=== PATIENT | female | born 1945 | race Caucasian/White ===

== ENCOUNTER → 2017-02-06 | Outpatient (CLI) | payer OTHER ==
[~2017-02-06] MED LIST: ASPEC81 PO; COLE1TAB5 PO; LPR100 PO; METH-589 PO; METO-596 PO; MULT-190 PO; OMEG10007 PO
[2017-02-06 14:08] LABS: THYROID STIMULATING HORMONE 0.788 uIu/ml (0.300-4.500)
== END | disposition home or self-care (01) ==
LOC: C.LAB1850 12:08
PROVIDERS: ATTEND Internal Medicine Endocrinology, Diabetes & Metabolism
DX: E05.90 Thyrotoxicosis, unspecified without thyrotoxic crisis or storm (principal)

== ENCOUNTER → 2017-05-08 | Outpatient (CLI) | payer OTHER ==
[2017-05-08 17:02] LABS: THYROID STIMULATING HORMONE 1.3 uIu/ml (0.300-4.500)
== END | disposition home or self-care (01) ==
LOC: C.LAB1850 15:27
PROVIDERS: ATTEND Internal Medicine Endocrinology, Diabetes & Metabolism
DX: E05.90 Thyrotoxicosis, unspecified without thyrotoxic crisis or storm (principal)

== ENCOUNTER → 2017-12-13 | Outpatient (CLI) | payer OTHER | END | disposition home or self-care (01) | LOC: C.LAB1850 08:11 | PROVIDERS: ATTEND Internal Medicine Endocrinology, Diabetes & Metabolism | DX: E05.90 Thyrotoxicosis, unspecified without thyrotoxic crisis or storm (principal) ==

== ENCOUNTER → 2018-02-13 | Outpatient (CLI) | payer OTHER | END | disposition home or self-care (01) | LOC: C.LAB1850 14:06 | PROVIDERS: ATTEND Internal Medicine Endocrinology, Diabetes & Metabolism | DX: E05.90 Thyrotoxicosis, unspecified without thyrotoxic crisis or storm (principal) ==

== ENCOUNTER 2018-11-14 10:05 | Observation (INO) ==
[2018-11-14] MEDS ORDERED: SODIUM CHLORIDE 0.9% 500 ML IV SCH (10:15)
[2018-11-14 10:40] LABS: Partial Thromboplastin Time 26.8 Seconds (21.0-31.0); Prothrombin Time 10.4 Seconds (9.0-12.0)
[2018-11-14 10:41] LABS: Albumin Level 3.6 gm/dl (3.4-5.0); BUN Creatinine Ratio 17.5 (10-20); Calcium 9.9 mg/dl (8.5-10.1); Creatinine Clr Calc Pharmacy 46.5 ml/min; Est GFR (African American) 58.1; Est GFR (Non-African American) 50.1; Magnesium 2.3 mg/dl (1.8-2.4); Potassium 2.8 mmol/L (3.5-5.1)
--- NOTE | 2018-11-14 10:44 | XRay Report ---
XR chest 1V portable CLINICAL HISTORY: 73 years-old Female presenting with weakness. TECHNIQUE: Portable upright AP view of the chest was obtained. COMPARISON: 05/02/2018. FINDINGS: Atherosclerosis of the aortic arch. Cardiac silhouette mildly enlarged. Minimal basilar opacities. No pleural effusion or pneumothorax. Osseous structures normal. Upper abdomen normal. IMPRESSION: 1. Minimal basilar opacities likely atelectasis or scarring. 2. Mild cardiomegaly . No other convincing evidence of acute cardiopulmonary disease. Electronically signed by: Shaji Tse M.D. 11/14/2018 10:42 AM
[2018-11-14 10:51] LABS: Hematocrit (blood only) 48.5 % (37-47); Hemoglobin 17.8 g/dL (12.0-16.0); Mean Corpuscular Hgb Conc 36.7 g/dL (32-36); Mean Corpuscular Volume 86.8 fL (80-100); Mean Platelet Volume 10.8 fL (7.4-10.4); Platelet Count 76 K/uL (130-400); RDW Coefficient of Variation 13.6 % (11.5-14.5); RDW Standard Deviation 43.1 fL (36.4-46.3); Red Blood Count 5.59 M/uL (4.2-5.4); White Blood Count 3.47 K/uL (4.8-10.8)
[2018-11-14 10:53] LABS: ALC (manual) 1.28 K/uL (1.2-3.4); Giant Platelets 1+; Lymphocytes # (manual) 0.76 K/uL (1.2-3.4); Lymphocytes % (manual) 21.9 %; Monocytes # (manual) 0.18 K/uL (0.11-0.59); Monocytes % (manual) 5.3 %; Neutrophils % (manual) 57.9 %; Platelet Estimate Decreased (Normal); Reactive Lymphocytes # (manual) 0.52 K/uL
[2018-11-14 10:58] LABS: Appearance Urine Turbid (Clear); Bilirubin Urine Negative (Negative); Blood Urine 2+ (Negative); Color Urine Dark Yellow; Glucose Urine UA Negative (Negative); Ketones Urine Trace (Negative); Leukocyte Esterase Urine 2+ (Negative); Nitrite Urine Negative (Negative); Protein Urine 2+ (Negative); Specific Gravity Urine 1.024 (1.000-1.030); Urobilinogen Urine Negative (Negative); pH Urine 5.5 (4.5-7.5)
[2018-11-14 11:01] LABS: Albumin Globulin Ratio 0.9 (0.9-2); Bilirubin,Total 0.7 mg/dl (0.2-1); Globulin 3.9 gm/dl (2.5-4.0); Total Protein 7.5 gm/dl (6.4-8.2); Troponin I 0.055 ng/ml (0-0.045)
[2018-11-14 11:20] LABS: T4 Free Thyroxine 0.77 ng/dl (0.8-1.6)
[2018-11-14 11:37] LABS: Bacteria Urine 4+ (Negative); Epithelial Cell Urine >30 /lpf (0-5); RBC Urine 0-4 /hpf (0-4); WBC Urine >30 /hpf (0-5)
[2018-11-14] MEDS ORDERED: POTASSIUM CHLORIDE 10 MEQ TABCR PO STA ×2 (12:39→19:04)
[2018-11-14] MEDS ORDERED: cefTRIAXone SODIUM 1,000 MG/50 ML BAG IV STA (12:39)
[2018-11-14] MEDS: POTASSIUM CHLORIDE / WTR 10 MEQ/100 ML PLCT IV SCH ×2 (12:54→13:51)
--- NOTE | 2018-11-14 14:27 | History & Physical Report ---
Date of Service November 14, 2018 Assessment & Plan (1) Atrial fibrillation: This is a 73-year-old female who has a significant past medical history of HTN, HLD, hyperthyroidism, tobacco abuser who presents to [facility] secondary to fatigue x4 days. Pt reported to PCP with above complaint and noted to be in Afib with RVR 148bpm with inferior/lateral st depressions Upon arrival to ED she spontaneously converted to NSR and is with out complaint Pt denies hx of afib or ever being on oral anticoagulation. According to [facility]2005 pt hospitalized for acute afib with rvr, placed on heparin gtt and d/c with warfarin. Notably at that time she was also dx with thyroid goiter and hyperthyroid started on tapazole. In ED WBC 3.47, H&H 17.8 and 48.5, platelets 76, potassium 2.8, BUN 19, creatinine 1.10, glucose 135, troponin 0.055, TSH 4.8, free T4 0.77 CXR negative for acute abnormality UA + hematuria, leuks, bacturia She received IV Rocephin, 1L IVF and KCL repletion while in ED admit to med/surg tele obtain echocardiogram consult cardiology - discussed with Dr. Barrera hold antiocoagulation for now Chadvasc 3 (age, female, HTN) IV lopressor prn continue oral lopressor if blood pressure allows (2) Elevated troponin: likely in setting of demand ischemia ecg changes inferior/lateral while pt in rapid afib; however currect ecg reveals NSR with no ST t wave changes trend troponin, ecg obtain echocardiogram appreciate cardiology input (3) Hypokalemia: Received 20 MDQ KCl p.o. along with K rider x 2 Schedule additional 40 M EQ x1 at 4 PM Add KCl to IVF Repeat BMP in a.m (4) UTI (urinary tract infection): Initial urinalysis concerning for UTI White blood cell count of 3.47, she is afebrile and frankly asymptomatic from urine standpoint Continue IV Rocephin, pending urine culture (5) HTN (hypertension): Blood pressure on the lower side Continue Lopressor with hold parameters Hold lisinopril for now Receiving IVF (6) Hyperthyroidism: Continue methimazole 5 mg twice daily TSH mildly elevated 4.85, free T4 mildly low at 0.77 Repeat TSH in 2 weeks and schedule follow-up with counter top assembler Dr. Archibald (7) Hyperlipidemia: Continue statin Fasting lipid panel in a.m. (8) Microscopic hematuria: may be in setting of UTI will need repeat urine upon completion of treatment given hx of tobacco abuse if still present will need further urologic work up (9) Thrombocytopenia: Platelet count 76, prior CBC revealed platelets Given new onset we will check anaplasmosis and Lyme titer Currently on IV Rocephin for UTI Monitor CBC (10) Tobacco abuse: nicotine patch ordered encourage smoking cessation (11) DVT prophylaxis: SCDS/TEDS hold on chemoprophylaxis for now given new onset thrombocytopenia, await anaplasma/lyme work up Disposition: D/C to home when able Follow up: PCP Dr. Peng upon discharge Patient was seen and examined in collaboration with Dr. Donovan, please see addendum Starting 11/15/18 patient will be under the care of Dr. Condon History of Present Illness Chief Complaint: Fatigue x 4 days. Primary Care Provider: Clement Danielle MD This is a 73-year-old female who has a significant past medical history of HTN, HLD, hyperthyroidism, tobacco abuser who presents to [facility] secondary to fatigue x4 days. Patient was seen in her PCP office this morning secondary to fatigue. During evaluation EKG was obtained which noted patient to be in A. fib with RVR, heart rate [address] depressions. Patient was referred over to ED. For the past 4 days patient has noted profound fatigue, increased somnolence that started approximately 7 PM yesterday Sunday. She overall has felt feverish with off-and-on chills intermittently, but denies taking her temperature. Further complains of intermittent loose stool. Lastly this morning patient felt substernal chest, "pressure, " described as heaviness, 2/10, nonradiating, resolved in minutes, never experienced in the past. Denies lightheaded, dizziness, syncope, hemoptysis, shortness of breath at rest or with exertion, nausea, vomiting, abdominal pain, dysuria, hematuria, increased urgency or frequency with urination. Appetite has been normal up until past few days. She is to go see grandson in [place], [place] for Prom tomorrow and is down that she may not be able to. Sister is at bedside. Pt denies hx of afib or ever being on oral anticoagulation. According to [facility] in 10/2005 pt hospitalized for acute afib with rvr, placed on heparin gtt and d/c with warfarin. Notably at that time she was also dx with thyroid goiter and hyperthyroid started on tapazole. Allergies Allergy/AdvReac Type Severity Reaction Status Date / Time prednisone AdvReac Intermediate "GOT REAL Verified 11/14/18 11:41 TENSE" Home Medications Home Medications Medication Instructions Recorded Confirmed Type PreserVision AREDS 1 tab PO BID 04/30/18 11/14/18 History aspirin [Aspir-81] 81 mg PO HS 04/30/18 11/14/18 History atorvastatin 20 mg PO QAM 04/30/18 11/14/18 History metoprolol tartrate 100 mg PO BID 04/30/18 11/14/18 History omega [id number]-fish oil [Fish Oil] 1 tab PO QPM 04/30/18 11/14/18 History lisinopril 20 mg PO DAILY 11/14/18 11/14/18 History methimazole 5 mg PO BID 11/14/18 11/14/18 History Past Med/Surg History Medical History Hyperlipidemia (Chronic) Neuropathy (Chronic) b/l hands and feet History of colon cancer (Chronic) 8-10yrs ago, s/p CHEMO Hyperthyroidism (Chronic) Atrial fibrillation (Chronic) remote h/o A-fib with RVR in 2005 noted in record review...was admitted at [facility] and treated with BB and cardizem, d/c'd on Coumadin. Pt has no recollection of any of this. Vocal cord polyps (Chronic) Encounter for pre-operative examination (Chronic) HTN (hypertension) (Chronic) Colon cancer (Resolved) Neuropathy (Chronic) History of diverticulitis (Resolved) Surgical History Hx of colonoscopy (Chronic) with polypectomy (malignant) Hx of appendectomy (Chronic) History of colonoscopy with polypectomy (Chronic) H/O: hysterectomy (Resolved) Family History Father Lung cancer Daughter Breast cancer Grandfather (Maternal) Coronary heart disease, Onset Age: 76 Social History Preferred Language: Wolof Communication Ability: Effective Beliefs That Will Affect Care: None Current Living Situation: Spouse and Other Current Living Situation Comment: AND SISTER Other Information That Helps Us Care for You: No Feels Safe at Home: Yes Safety Concerns: Feels Safe At This Time Smoking Status: Current every day smoker Tobacco Type: cigarettes Cigarettes Per Day: 30 Do You Dip or Chew Tobacco: No Hx Alcohol Use: No Hx Substance Use: No Review of Systems Review of Systems: As noted per HPI, 10 systems reviewed and negative unless noted above. Physical Exam Physical Exam: Gen: WD/WN, F, NAD, sitting up in bed, pleasant, conversing easily Head: Normocephalic, Atraumatic Eyes: Sclera normal, no conjunctival injection, PERRLA, EOMI ENT: Gross hearing intact, normal pharynx, mucous membranes moist Neck: supple, no adenopathy, No JVD, no bruit, Resp: Clear to auscultation b/l but diminished breath sounds at bases, no wheeze, rales, rhonchi. Normal insp/exp effort, no accessory muscle use CV: Regular rate, regular rhythm, no murmur, rub, gallop, or ectopy Abd: +BS x 4, soft, nontender, nondistended Musculoskeletal: moves extremities active rom x 4, strength intact, good special weapons and tactics officer strength Extremities: No edema bilaterally Skin: warm, moist, no rash, negative turgor, cap refill < 2sec Neuro: Alert and oriented x 3, speech normal, good mood/affect, cran nerve 2-12 intact grossly : deferred Results & Data Vital Signs (Past 12 Hours) Vital Signs Temp Pulse Pulse Resp BP BP Pulse Ox 11/14/18 13:46 61 22 105/61 96 11/14/18 12:18 59 L 24 102/61 96 11/14/18 11:04 58 L 18 95/51 L 98 11/14/18 10:21 97 11/14/18 10:15 98 11/14/18 10:11 36.5 C 61 20 105/63 97 Laboratory Results Short CBC 11/14/18 11/14/18 Range/Units 09:55 09:55 WBC 3.47 L (4.8-10.8) K/uL Hgb 17.8 H (12.0-16.0) g/dL Hct 48.5 H (37-47) % Plt Count 76 L (130-400) K/uL BUN 19 H (7-18) mg/dl Creatinine 1.10 (0.6-1.2) mg/dl AST 60 H (15-37) U/L BMP 11/14/18 09:55 Sodium 138 Potassium 2.8 L Chloride 104 Carbon Dioxide 25 BUN 19 H Creatinine 1.10 Glucose 135 H Calcium 9.9 Cardiac Enzymes 11/14/18 Range/Units 09:55 Troponin I 0.055 H* (0-0.045) ng/ml Liver Function 11/14/18 Range/Units 09:55 Total Bilirubin 0.7 (0.2-1) mg/dl AST 60 H (15-37) U/L ALT 43 (12-78) U/L Alkaline Phosphatase 106 (45-117) U/L Albumin 3.6 (3.4-5.0) gm/dl Urine 11/14/18 Range/Units 10:40 Urine Color Dark Yellow Urine Appearance Turbid H (Clear) Urine pH 5.5 (4.5-7.5) Ur Specific Cassandra 1.024 (1.000-1.030) Urine Protein 2+ H (Negative) Urine Glucose (UA) Negative (Negative) Diagnostic Findings CXR: IMPRESSION: 1. Minimal basilar opacities likely atelectasis or scarring. 2. Mild cardiomegaly . No other convincing evidence of acute cardiopulmonary disease Medications Administered Potassium Chloride (K Suresh / Wtr) 10 meq in 100 mls @ 100 mls/hr IV Q1H CHERRY Stop: 11/14/18 14:44 Last Admin: 11/14/18 13:51 Dose: 100 mls/hr Documented by: [id number] Infusion: 11/14/18 13:51 Dose: 0 mls/hr Documented by: [id number] Admin: 11/14/18 12:54 Dose: 100 mls/hr Documented by: [id number] Discontinued Medications Sodium Chloride (Nss) 500 mls @ 999 mls/hr IV .Q31M CHERRY Stop: 11/14/18 10:45 Last Infusion: 11/14/18 11:21 Dose: 0 mls/hr Documented by: [id number] Admin: 11/14/18 10:55 Dose: 999 mls/hr Documented by: [id number] Ceftriaxone Sodium (Rocephin) 1,000 mg in 50 mls @ 100 mls/hr IV NOW STA Stop: 11/14/18 13:08 Last Infusion: 11/14/18 13:52 Dose: 0 mls/hr Documented by: [id number] Admin: 11/14/18 12:53 Dose: 100 mls/hr Documented by: [id number] Potassium Chloride (Klor-Con M10) 20 meq PO NOW STA Stop: 11/14/18 12:40 Last Admin: 11/14/18 12:53 Dose: 20 meq Documented by: [id number] ECG Rhythm: normal sinus Code Status & VTE Plan Code Status Full Code VTE Prophylaxis Plan VTE Prophylaxis will be ordered: Yes Reason for no VTE drug order: Contraindicated Supervising Physician Co-Signing Physician Notes Care coordinated with Iona Adam PA-C. Agree with above note. Patient seen and examined. Please refer to her notes for full details. Vital signs reviewed. Physical exam: General exam: Alert and oriented. Not in acute distress. CVS: S1 and S2 heard, regular rate and rhythm, no murmurs. RS: Clear to auscultation, no wheezing or crackles. ABD: Soft, bowel sounds present, nontender, no distention. WAREHOUSE ASSOCIATE: Nonfocal. EXT: No edema, no erythema. Labs: Reviewed. Assessment and plan: 73F presents with feeo=ing weak and tired for last four days , thinks she might had fever on and off couple of times, No ruuny nose or sore throat. HAd some chest discomfort today morning and went to PCP and found to be in rapid a fib and was sent to Er. Currently back in sinus rhythm.Also found to have leukopenia and thrombocytopenia and UTI Rapid afib'back to sinus rhythm monitor in tele serial ce and echo iv lopressor prn cardiology consult Leukopenia and thrombocytopenia possible anaplasmosis will follow lyme test and anaplasmosis follow peripheral smear for any anaplasmosis will start on doxycyline and follw the response UTI started on rocephin will follow cx. Other diagnosis and plan of care as per []. Luciano johnston MD. (1) UTI (urinary tract infection) Hematuria presence: without hematuria Urinary tract infection type: site unspecified Qualified Code(s): N39.0 - Urinary tract infection, site not specified
--- NOTE | 2018-11-14 14:55 | Emergency Department Note ---
Entered by Char Miller acting as a scribe for Tan Friedman DO History of Present Illness General Chief complaint: Chest Pain Time Seen by Provider: 11/14/18 10:08 Source: patient and other (medical command call ) History of Present Illness Provider complaint: weakness Onset (ago): day(s) 5 Location: left and right Quality: + other (weakness ) Associated symptoms: + denies other symptoms (denies diarrhea,swelling to legs) and + cough; no chest pain and no nausea/vomiting Treatments prior to arrival: aspirin (4 baby) The patient is a 73 year old female who presents to the Emergency Department with complaints of weakness over the last 5 days. The patient states that she has been feeling "run down" over the last 5 days. She states that she has been sleeping more than usual. She states that she felt better this morning. She denies having chest pain currently. The patient states that she has been coughing but states that she smokes. She denies noticing swelling in her legs. The patient also denies recent nausea, vomiting, diarrhea, and fevers. The patient denies a history of recent surgeries. She states that she had colon cancer 8 years ago. She states that she was given 4 baby Aspirin en route. Per medical command call, the patient presented to her doctor's office today with weakness and chest discomfort. The patient was in rapid atrial fibrillation with no prior history. The patient was also hypotensive. Home Medications Home Medications Medication Instructions Recorded Confirmed Type PreserVision AREDS 1 tab PO BID 04/30/18 11/14/18 History aspirin [Aspir-81] 81 mg PO HS 04/30/18 11/14/18 History atorvastatin 20 mg PO QAM 04/30/18 11/14/18 History metoprolol tartrate 100 mg PO BID 04/30/18 11/14/18 History omega 3-hrl-yay-fish oil [Fish Oil] 1 tab PO QPM 04/30/18 11/14/18 History lisinopril 20 mg PO DAILY 11/14/18 11/14/18 History methimazole 5 mg PO BID 11/14/18 11/14/18 History Allergies Allergy/AdvReac Type Severity Reaction Status Date / Time prednisone AdvReac Intermediate "GOT REAL Verified 11/14/18 11:41 TENSE" Past Med/Surg History Medical History Hyperlipidemia (Chronic) Neuropathy (Chronic) b/l hands and feet History of colon cancer (Chronic) 8-10yrs ago, s/p CHEMO Hyperthyroidism (Chronic) Atrial fibrillation (Chronic) remote h/o A-fib with RVR in 2005 noted in record review...was admitted at [facility] and treated with BB and cardizem, d/c'd on Coumadin. Pt has no recollection of any of this. Vocal cord polyps (Chronic) Encounter for pre-operative examination (Chronic) HTN (hypertension) (Chronic) Colon cancer (Resolved) Neuropathy (Chronic) History of diverticulitis (Resolved) Surgical History Hx of colonoscopy (Chronic) with polypectomy (malignant) Hx of appendectomy (Chronic) History of total bilateral knee replacement (TKR) (Chronic) History of colonoscopy with polypectomy (Chronic) H/O cataract extraction (Chronic) H/O: hysterectomy (Resolved) Family History Father Lung cancer Daughter Breast cancer Grandfather (Maternal) Coronary heart disease, Onset Age: 76 Social History Preferred Language: Occitan Communication Ability: Effective Beliefs That Will Affect Care: None Current Living Situation: Spouse and Other Current Living Situation Comment: AND SISTER Other Information That Helps Us Care for You: No Feels Safe at Home: Yes Safety Concerns: Feels Safe At This Time Smoking Status: Current every day smoker Tobacco Type: cigarettes Cigarettes Per Day: 30 Do You Dip or Chew Tobacco: No Hx Alcohol Use: No Hx Substance Use: No Review of Systems See HPI for pertinent positives & negatives. and A total of 10 systems reviewed and were otherwise negative Physical Exam Vital Signs Vital Signs - 24 hr 11/14/18 10:11 11/14/18 10:15 11/14/18 10:21 Temperature 36.5 C Temperature Source Oral Sepsis Recent Fever Within 48 Hours No Sepsis New/Unexplained Change in Mental Status No Sepsis Action Taken by Nursing No Action Required Pulse Rate 61 Pulse Rate [Left] Respiratory Rate 20 Respiratory Effort / Characteristics Respiratory Depth Respiratory Pattern Blood Pressure 105/63 Blood Pressure [Right Arm] Blood Pressure Mean 77 Blood Pressure Mean [Right Arm] Blood Pressure Position [Right Arm] Pulse Oximetry 97 98 97 Oxygen Delivery Method Room Air Room Air Room Air 11/14/18 11:04 11/14/18 12:18 11/14/18 13:46 Temperature Temperature Source Sepsis Recent Fever Within 48 Hours Sepsis New/Unexplained Change in Mental Status Sepsis Action Taken by Nursing Pulse Rate Pulse Rate [Left] 58 L 59 L 61 Respiratory Rate 18 24 22 Respiratory Effort / Characteristics Non-Labored Spontaneous Non-Labored Spontaneous Non-Labored Spontaneous Respiratory Depth Normal Respiratory Pattern Blood Pressure Blood Pressure [Right Arm] 95/51 L 102/61 105/61 Blood Pressure Mean Blood Pressure Mean [Right Arm] 65 74 75 Blood Pressure Position [Right Arm] Lying Lying Lying Pulse Oximetry 98 96 96 Oxygen Delivery Method Room Air Room Air Room Air 11/14/18 14:01 11/14/18 14:09 Temperature Temperature Source Sepsis Recent Fever Within 48 Hours Sepsis New/Unexplained Change in Mental Status Sepsis Action Taken by Nursing Pulse Rate 70 Pulse Rate [Left] Respiratory Rate 20 Respiratory Effort / Characteristics Non-Labored Spontaneous Respiratory Depth Normal Respiratory Pattern Regular Blood Pressure 112/60 Blood Pressure [Right Arm] Blood Pressure Mean Blood Pressure Mean [Right Arm] Blood Pressure Position [Right Arm] Pulse Oximetry 97 Oxygen Delivery Method Room Air Room Air GENERAL: Patient is awake, alert, and in no acute distress.Patient is resting comfortably and showing no signs of anxiety EYES: The conjunctivae are clear. The pupils are round and reactive. EARS, NOSE, MOUTH AND THROAT: The nose is without any evidence of any deformity. Mucous membranes are moist.Tongue is midline NECK: The neck is nontender and supple. RESPIRATORY: Normal respiratory effort is noted. There is no evidence of wheezing rhonchi or rales to auscultation. CARDIOVASCULAR: Regular rate and rhythm noted. There no murmurs rubs or gallops normal S1 normal S2 GASTROINTESTINAL: The abdomen is soft. Bowel sounds are present in all quadrants. Abdomen is nontender. MUSCULOSKELETAL/EXTREMITIES: There is no evidence of gross deformity. Full range of motion is noted in the hips and shoulders. SKIN: There is no obvious evidence of any rash. There are no petechiae, pallor or cyanosis noted. NEUROLOGIC: Patient is awake alert and oriented x3. Strength is symmetric. Patellar reflexes are 2+ bilaterally. Course 1011: The patient was evaluated in room in A12B. A history and physical were performed. 1240: I discussed the patient's case with Iona Johnston who will evaluate the patient for further management. 1244: I updated the patient who verbalized agreement and understanding of the treatment plan. Consultations Consultation #1: Iona Johnston Time: 12:40 Administered Medications Discontinued Medications Sodium Chloride (Nss) 500 mls @ 999 mls/hr IV .Q31M CHERRY Stop: 11/14/18 10:45 Last Infusion: 11/14/18 11:21 Dose: 0 mls/hr Documented by: [id number] Admin: 11/14/18 10:55 Dose: 999 mls/hr Documented by: [id number] Potassium Chloride (K Suresh / Wtr) 10 meq in 100 mls @ 100 mls/hr IV Q1H CHERRY Stop: 11/14/18 14:44 Last Admin: 11/14/18 13:51 Dose: 100 mls/hr Documented by: [id number] Infusion: 11/14/18 13:51 Dose: 0 mls/hr Documented by: [id number] Admin: 11/14/18 12:54 Dose: 100 mls/hr Documented by: [id number] Ceftriaxone Sodium (Rocephin) 1,000 mg in 50 mls @ 100 mls/hr IV NOW STA Stop: 11/14/18 13:08 Last Infusion: 11/14/18 13:52 Dose: 0 mls/hr Documented by: [id number] Admin: 11/14/18 12:53 Dose: 100 mls/hr Documented by: [id number] Potassium Chloride (Klor-Con M10) 20 meq PO NOW STA Stop: 11/14/18 12:40 Last Admin: 11/14/18 12:53 Dose: 20 meq Documented by: [id number] Medical Decision Making Differential Diagnosis Etiologies such as premature contractions, electrolyte abnormality, cardiac dysrhythmia, thyroid dysfunction, pulmonary embolism, infection, gastroi ntestinal, as well as others were entertained. Medical Records Attestation: I reviewed the patient's medical records. Home Medications Current Medication List: was personally reviewed by me Laboratory Data Attestation: I reviewed the patient's lab results. Result diagrams: 11/14/18 09:55 11/14/18 09:55 Lab Results 11/14/18 11/14/18 11/14/18 Range/Units 09:55 09:55 09:55 WBC 3.47 L (4.8-10.8) K/uL RBC 5.59 H (4.2-5.4) M/uL Hgb 17.8 H (12.0-16.0) g/dL Hct 48.5 H (37-47) % MCV 86.8 (80-100) fL MCH 31.8 (25-34) pg MCHC 36.7 H (32-36) g/dL RDW Std Deviation 43.1 (36.4-46.3) fL RDW Coeff of Anjali 13.6 (11.5-14.5) % Plt Count 76 L (130-400) K/uL MPV 10.8 H (7.4-10.4) fL Neutrophils % (Manual) 57.9 % Lymphocytes % (Manual) 21.9 % Reactive Lymphs % (Man) 14.9 % Monocytes % (Manual) 5.3 % Neutrophils # (Manual) 2.01 (1.4-6.5) K/uL Total Absolute Neuts 2.01 (1.4-6.5) K/uL Lymphocytes # (Manual) 0.76 L (1.2-3.4) K/uL Reactive Lymphs # 0.52 K/uL Total Abs Lymphocytes 1.28 (1.2-3.4) K/uL Monocytes # (Manual) 0.18 (0.11-0.59) K/uL Platelet Estimate Decreased (Normal) Giant Platelets 1+ PT 10.4 (9.0-12.0) Seconds INR 1.0 (0.9-1.1) APTT 26.8 (21.0-31.0) Seconds PTT Ratio 1.0 Sodium 138 (136-145) mmol/L Potassium 2.8 L (3.5-5.1) mmol/L Chloride 104 (98-107) mmol/L Carbon Dioxide 25 (21-32) mmol/L Anion Gap 9.0 (3-11) BUN 19 H (7-18) mg/dl Creatinine 1.10 (0.6-1.2) mg/dl Est Cr Clr Drug Dosing 46.5 ml/min Est GFR ( Amer) 58.1 Est GFR (Non-Af Amer) 50.1 BUN/Creatinine Ratio 17.5 (10-20) Glucose 135 H (70-99) mg/dl Calcium 9.9 (8.5-10.1) mg/dl Magnesium 2.3 (1.8-2.4) mg/dl Total Bilirubin 0.7 (0.2-1) mg/dl AST 60 H (15-37) U/L ALT 43 (12-78) U/L Alkaline Phosphatase 106 (45-117) U/L Troponin I 0.055 H* (0-0.045) ng/ml Total Protein 7.5 (6.4-8.2) gm/dl Albumin 3.6 (3.4-5.0) gm/dl Globulin 3.9 (2.5-4.0) gm/dl Albumin/Globulin Ratio 0.9 (0.9-2) TSH 4.850 H (0.300-4.500) uIu/ml Free T4 0.77 L (0.8-1.6) ng/dl Urine Color Urine Appearance (Clear) Urine pH (4.5-7.5) Ur Specific [place] (1.000-1.030) Urine Protein (Negative) Urine Glucose (UA) (Negative) Urine Ketones (Negative) Urine Blood (Negative) Urine Nitrite (Negative) Urine Bilirubin (Negative) Urine Urobilinogen (Negative) Ur Leukocyte Esterase (Negative) Urine RBC (0-4) /hpf Urine WBC (0-5) /hpf Ur Epithelial Cells (0-5) /lpf Urine Bacteria (Negative) 11/14/18 Range/Units 10:40 WBC (4.8-10.8) K/uL RBC (4.2-5.4) M/uL Hgb (12.0-16.0) g/dL Hct (37-47) % MCV (80-100) fL MCH (25-34) pg MCHC (32-36) g/dL RDW Std Deviation (36.4-46.3) fL RDW Coeff of Anjali (11.5-14.5) % Plt Count (130-400) K/uL MPV (7.4-10.4) fL Neutrophils % (Manual) % Lymphocytes % (Manual) % Reactive Lymphs % (Man) % Monocytes % (Manual) % Neutrophils # (Manual) (1.4-6.5) K/uL Total Absolute Neuts (1.4-6.5) K/uL Lymphocytes # (Manual) (1.2-3.4) K/uL Reactive Lymphs # K/uL Total Abs Lymphocytes (1.2-3.4) K/uL Monocytes # (Manual) (0.11-0.59) K/uL Platelet Estimate (Normal) Giant Platelets PT (9.0-12.0) Seconds INR (0.9-1.1) APTT (21.0-31.0) Seconds PTT Ratio Sodium (136-145) mmol/L Potassium (3.5-5.1) mmol/L Chloride (98-107) mmol/L Carbon Dioxide (21-32) mmol/L Anion Gap (3-11) BUN (7-18) mg/dl Creatinine (0.6-1.2) mg/dl Est Cr Clr Drug Dosing ml/min Est GFR ( Amer) Est GFR (Non-Af Amer) BUN/Creatinine Ratio (10-20) Glucose (70-99) mg/dl Calcium (8.5-10.1) mg/dl Magnesium (1.8-2.4) mg/dl Total Bilirubin (0.2-1) mg/dl AST (15-37) U/L ALT (12-78) U/L Alkaline Phosphatase (45-117) U/L Troponin I (0-0.045) ng/ml Total Protein (6.4-8.2) gm/dl Albumin (3.4-5.0) gm/dl Globulin (2.5-4.0) gm/dl Albumin/Globulin Ratio (0.9-2) TSH (0.300-4.500) uIu/ml Free T4 (0.8-1.6) ng/dl Urine Color Dark Yellow Urine Appearance Turbid H (Clear) Urine pH 5.5 (4.5-7.5) Ur Specific [place] 1.024 (1.000-1.030) Urine Protein 2+ H (Negative) Urine Glucose (UA) Negative (Negative) Urine Ketones Trace H (Negative) Urine Blood 2+ H (Negative) Urine Nitrite Negative (Negative) Urine Bilirubin Negative (Negative) Urine Urobilinogen Negative (Negative) Ur Leukocyte Esterase 2+ H (Negative) Urine RBC 0-4 (0-4) /hpf Urine WBC >30 H (0-5) /hpf Ur Epithelial Cells >30 H (0-5) /lpf Urine Bacteria 4+ H (Negative) Imaging Data Radiologist's Impression: Radiology results as stated below per my review and the radiologist's interpretation: XR chest 1V portable CLINICAL HISTORY: 73 years-old Female presenting with weakness. TECHNIQUE: Portable upright AP view of the chest was obtained. COMPARISON: 05/02/2018. FINDINGS: Atherosclerosis of the aortic arch. Cardiac silhouette mildly enlarged. Minimal basilar opacities. No pleural effusion or pneumothorax. Osseous structures normal. Upper abdomen normal. IMPRESSION: 1. Minimal basilar opacities likely atelectasis or scarring. 2. Mild cardiomegaly . No other convincing evidence of acute cardiopulmonary disease. Electronically signed by: Shaji Tse M.D. 11/14/2018 10:42 AM ECG Data Attestation: I personally reviewed and interpreted this ECG as follows: Indication: weakness Rate (beats per minute): 62 Rhythm: normal sinus Findings: + ST depression (low lateral); no PAC, no PVC and no ectopy Comparison ECG Date: from (03/03/15) Change: no significant change Additional Comments: ECG from the office: neuro complex tachycardia, 148, there is some variability to the rhythm with inferior and lateral ST depressions, could be consistent with afib Blood Pressure Blood Pressure Findings: Normal blood pressure MDM Narrative The patient is a 73-year-old female who presented to the emergency department for an evaluation of palpitations and generalized weakness. The patient was initially seen by her primary care physician's office. I received a phone call from the provider who cared for the patient today. There was concern because the patient has a new onset of atrial fibrillation. Initially it was rapid ventricular response the patient broke to a normal sinus rhythm prior to arrival. I discussed the patient's laboratory and radiographic studies with her. She was treated with potassium replacement as well as IV antibiotics for presumed urinary tract infection. I discussed the patient's condition with the on-call [facility] hospitalist group. They have agreed to evaluate the patient in the emergency department for further management and disposition. Impression & Plan Atrial fibrillation, new onset, Chest pain, Hypokalemia, Elevated troponin, UTI (urinary tract infection) Discharge Plan Visit Data Chief Complaint: Chest Pain ED Provider: Tan Friedman Discharge Problem: Atrial fibrillation, new onset, Chest pain, Hypokalemia, Elevated troponin, UTI (urinary tract infection) Patient Disposition: Being Evaluated by Hospitalist Discharge Instructions Interventions: ED Discharge Assessment Last Done: 11/14/18 14:09 Discharge Problem: Chest pain Qualifiers: Chest pain type: unspecified Qualified Code(s): R07.9 - Chest pain, unspecified UTI (urinary tract infection) Qualifiers: Urinary tract infection type: site unspecified Hematuria presence: without hematuria Qualified Code(s): N39.0 - Urinary tract infection, site not specified The scribe's documentation has been prepared under my direction and personally reviewed by me in its entirety. I confirm that the note above accurately reflects all work, treatment, procedures, and medical decision making performed by me.
[2018-11-14] MEDS ORDERED: MAGNESIUM HYDROXIDE SUSP 30 ML UDC PO PRN (15:13)
[2018-11-14] MEDS ORDERED: METOPROLOL TARTRATE 1 MG/ML VIAL IV PRN (15:13)
[2018-11-14] MEDS ORDERED: NITROGLYCERIN SL 0.4 MG/TAB TAB SL PRN (15:13)
[2018-11-14] MEDS ORDERED: ONDANSETRON INJ 2 MG/ML 2 ML VIAL IV PRN (15:13)
[2018-11-14] MEDS ORDERED: ACETAMINOPHEN 325 MG TAB PO PRN (15:13)
[2018-11-14] MEDS ORDERED: POLYETHYLENE (MIRALAX) 17 GM PACK PO PRN (15:13)
[2018-11-14] MEDS ORDERED: ALUMINUM/MAGNESIUM SUSP 30 ML UDC PO PRN (15:13)
[2018-11-14] MEDS: POTASSIUM CHLORIDE 10 MEQ in SODIUM CHLORIDE 0.9% 1000ML 1,000 ML IV SCH (15:40)
[2018-11-14] MEDS: NICOTINE 21 MG/24 HR TDSY TD SCH (15:51)
[2018-11-14] MEDS ORDERED: POTASSIUM CHLORIDE 20 MEQ TABCR PO SCH (16:00)
[2018-11-14] MEDS ORDERED: POTASSIUM CHLORIDE 20 MEQ TABCR PO ONE (16:00)
[2018-11-14 16:10] LABS: Troponin I 0.041 ng/ml (0-0.045)
[2018-11-14] MEDS: DOXYCYCLINE HYCLATE 100 MG CAP PO SCH (17:43)
[2018-11-14 18:00] LABS: Lyme Ab IgG w/WB Rflx Negative (Negative); Lyme Ab IgM w/WB Rflx Negative (Negative)
[2018-11-14 18:28] LABS: Potassium 3.4 mmol/L (3.5-5.1)
--- NOTE | 2018-11-14 18:36 | CT Scan Report ---
CT head/brain wo con CT DOSE: 537.48 mGy.cm HISTORY: Mental status change PAF, memory loss TECHNIQUE: Multiaxial CT images of the head were performed without the use of intravenous contrast. A dose lowering technique was utilized adhering to the principles of ALARA. Comparison: 09/28/2014 Findings: Bulk of the sinuses are clear. 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 T his is unchanged. The calvarium and skull base are intact. The ventricles and sulci are within normal limits. There is no mass, hematoma, midline shift, or acute infarct. Mild age-related atrophy and chronic small vessel change Impression: No acute intracranial abnormality. Mild age-related change. The above report was generated using voice recognition software. It may contain grammatical, syntax or spelling errors. Electronically signed by: Fab Alegira M.D. 11/14/2018 6:35 PM
[2018-11-14] MEDS: CEROVITE ADV FORMULA TAB PO SCH (19:59)
[2018-11-14] MEDS: APIXABAN 5 MG TABLET PO SCH (20:01)
[2018-11-14] MEDS: METOPROLOL TARTRATE 100 MG TAB PO SCH (20:01)
[2018-11-14] MEDS: methIMAzole 5 MG TABLET PO SCH (20:02)
[2018-11-14] MEDS ORDERED: OMEGA-3 (PURIFIED FISH OIL) 1 GM CAP PO SCH (21:00)
[2018-11-14] MEDS ORDERED: ASPIRIN 81 MG ECTAB PO SCH (21:00)
[2018-11-15] MEDS: DOXYCYCLINE HYCLATE 100 MG CAP PO SCH (06:00)
[2018-11-15] MEDS: POTASSIUM CHLORIDE 10 MEQ in SODIUM CHLORIDE 0.9% 1000ML 1,000 ML IV SCH (06:03)
[2018-11-15 06:12] LABS: Hematocrit (blood only) 36.2 % (37-47); Hemoglobin 12.5 g/dL (12.0-16.0); Mean Corpuscular Hgb Conc 34.5 g/dL (32-36); Mean Corpuscular Volume 87.7 fL (80-100); RDW Coefficient of Variation 13.7 % (11.5-14.5); RDW Standard Deviation 43.9 fL (36.4-46.3); Red Blood Count 4.13 M/uL (4.2-5.4); White Blood Count 4.41 K/uL (4.8-10.8)
[2018-11-15 06:44] LABS: Mean Platelet Volume 10.4 fL (7.4-10.4); Platelet Count 87 K/uL (130-400)
[2018-11-15 06:47] LABS: Albumin Level 2.7 gm/dl (3.4-5.0); BUN Creatinine Ratio 22.6 (10-20); Calcium 8.6 mg/dl (8.5-10.1); Creatinine Clr Calc Pharmacy 63.2 ml/min; Est GFR (African American) 84.1; Est GFR (Non-African American) 72.6; Magnesium 1.8 mg/dl (1.8-2.4); Potassium 3.5 mmol/L (3.5-5.1)
[2018-11-15 06:53] LABS: Albumin Globulin Ratio 0.9 (0.9-2); Bilirubin,Total 0.4 mg/dl (0.2-1); Globulin 2.9 gm/dl (2.5-4.0); Total Protein 5.6 gm/dl (6.4-8.2)
[2018-11-15] MEDS: methIMAzole 5 MG TABLET PO SCH (08:55)
[2018-11-15] MEDS: APIXABAN 5 MG TABLET PO SCH (08:56)
[2018-11-15] MEDS: METOPROLOL TARTRATE 100 MG TAB PO SCH (08:56)
[2018-11-15] MEDS: CEROVITE ADV FORMULA TAB PO SCH (08:56)
[2018-11-15] MEDS: NICOTINE 21 MG/24 HR TDSY TD SCH (08:57)
[2018-11-15] MEDS ORDERED: ATORVASTATIN 20 MG TAB PO SCH (09:00)
[2018-11-15] MEDS ORDERED: cefTRIAXone SODIUM 1,000 MG in DEXTROSE 5% 50 ML IV SCH (09:00)
--- NOTE | 2018-11-15 09:08 | Cardiology Progress Note ---
Date of Service November 15, 2018 Assessment & Plan (1) Atrial fibrillation, new onset: unclear duration unclear inciting factor K was significantly low, likely contributed normal left atrial size spontaneously converted to sinus already on metoprolol 100mg bid, rates in 50's-60's overnight, unable to add further rate controlling agent first episode so will hold off on antiarrhythmic Eliquis started cont 5mg po bid my office will call to arrange f/u with me in 1 month ok to d/c to home from cardiac standpoint. (2) HTN (hypertension): labile overnight will follow as an outpatient (3) Chest pain: resolved likely strain due to rvr given risk factors will obtain outpatient Lexiscan nuclear stress to complete work up (4) Hypokalemia: unclear etiology would d/c home on KCl 40meq daily f/u bmp in 1 weeks Subjective Pt seen and examined, states that she feels well. Denies cp, sob, palpitations, lightheadedness or dizziness. Strength has returned to normal as well. tele reviewed: sinus rhythm without arrhythmia or significant ectopy. Review of Systems Review of Systems: All systems reviewed & are unremarkable except as noted in HPI & below Physical Exam Physical Exam: General: Awake, alert and oriented x 3. No acute distress. HEENT: Normocephalic, atraumatic. Pupils equal, round and reactive to light and accommodation. Extraocular muscles are intact. Anicteric sclera. Moist mucous membranes. Neck: No JVD. No bruit. Cardiovascular: Regular. Positive S-4. Normal S-1 and S-2. No S-3. No murmurs or rubs. Pulmonary: Clear to auscultation B/L. No rales, rhonchi or wheezing Abdomen: Bowel sounds x 4, soft. No rebound, guarding or tenderness. No organomegaly. Extremities: No clubbing, cyanosis or edema. +2 pedal pulses bilaterally. Skin: Warm and dry. Results & Data Vital Signs (Past 12 Hours) Vital Signs Temp Pulse Pulse Resp BP BP Pulse Ox 11/15/18 08:22 62 11/15/18 07:29 36.7 C 62 16 163/79 H 95 11/15/18 04:16 37 C 66 18 131/76 94 11/14/18 23:50 65 11/14/18 23:02 37 C 63 18 117/61 91 (1) Chest pain Chest pain type: unspecified Qualified Code(s): R07.9 - Chest pain, unspecified
[2018-11-15] MEDS ORDERED: POTASSIUM CHLORIDE 20 MEQ TABCR PO SCH (09:15)
--- NOTE | 2018-11-15 12:55 | Hospitalist Progress Note ---
Date of Service November 15, 2018 Assessment & Plan (1) Atrial fibrillation: Patient is a 73 yr female with H/O HTN, HLD, hyperthyroidism, tobacco abuser who presents to [facility] secondary to fatigue x4 days. Afib RVR New Onset Unknown duration Hypokalemia could have trigged the afib CXR:Minimal basilar opacities likely atelectasis or scarring. Mild cardiomegaly . No other convincing evidence of acute cardiopulmonary disease. ECHO: EF:55-60%, No segmental left ventricular wall motion, Grade II diastolic dysfunction, Normal left atrial size Spontaneously converted to Sinus Needs repeat TSH, Free T 4 tested as outpatient Replace electrolytes as needed Continue Metoprolol Started on Eliquis for anticoagulation Planned for Stress test as outpatient Needs follow up with Cardiology upon discharge (2) Elevated troponin: likely in setting of demand ischemia due to Afib RVR Troponin trended down Denies chest pain ECHO: no wall motion abnormality Plan for stress test as outpatient Appreciate cardiology input (3) Hypokalemia: Replace electrolytes as needed (4) UTI (urinary tract infection): Initial urinalysis suggestive for UTI Patient denies Dysuria, frequency, abd pain Received Rocephin day #2 Will transition to Keflex Urine Culture: Contaminated sample (5) HTN (hypertension): Labile Continue Lopressor, lisinopril (6) Hyperthyroidism: Continue methimazole 5 mg twice daily TSH mildly elevated 4.85, free T4 mildly low at 0.77 Repeat TSH in 2 weeks and follow-up with animal impersonator Dr. Archibald (7) Hyperlipidemia: Continue statin (8) Microscopic hematuria: Likely due to UTI given hx of tobacco abuse if still present will need further urologic work up (9) Thrombocytopenia: Platelet count 76, prior CBC revealed normal platelets Lyme Screen is negative Anaplasmosis serology: pending Received IV Rocephin for UTI Continue Doxycycline while work up is pending (10) Tobacco abuse: nicotine patch ordered encourage smoking cessation (11) DVT prophylaxis: SCDS/TEDS Re: thrombocytopenia Disposition: D/C to home today Subjective Patient is seen and examined at bedside She feels a lot better today Eager to get discharged Tiredness improved Currently in Sinus Denies chest pain, SOB, dizziness Offers no comaplints Review of Systems Review of Systems: All systems reviewed & are unremarkable except as noted in HPI & below Physical Exam Physical Exam: Physical Exam: Vitals signs as noted above General Appearance:Moderately built and nourished, no apparent distress Head: normocephalic, Atraumatic Eyes: normal inspection, EOMI Neck: supple, Trachea midline Respiratory/Chest: Normal breath sounds, CTA Cardiovascular: S1, S2, No murmur Abdomen/GI:Soft, Non tender, Bowel sounds present Extremities/Musculoskelatal:normal inspection, no edema Neurologic/Psych:AAOX3, grossly no focal neurological deficits Skin: normal color, warm Results & Data Vital Signs (Past 12 Hours) Vital Signs Temp Pulse Pulse Resp BP BP Pulse Ox 11/15/18 11:36 36.8 C 57 L 16 153/73 H 95 11/15/18 08:22 62 11/15/18 07:29 36.7 C 62 16 163/79 H 95 11/15/18 04:16 37 C 66 18 131/76 94 Laboratory Results Short CBC 11/15/18 Range/Units 05:51 WBC 4.41 L (4.8-10.8) K/uL Hgb 12.5 D (12.0-16.0) g/dL Hct 36.2 L (37-47) % Plt Count 87 L (130-400) K/uL BMP 11/14/18 11/14/18 11/15/18 15:27 15:27 05:51 Sodium 141 Potassium 3.4 L D Cancelled 3.5 Chloride 113 H Carbon Dioxide 25 BUN 18 Creatinine 0.81 Glucose 94 Calcium 8.6 Cardiac Enzymes 11/14/18 Range/Units 15:27 Troponin I 0.041 (0-0.045) ng/ml Liver Function 11/15/18 Range/Units 05:51 Total Bilirubin 0.4 (0.2-1) mg/dl AST 41 H (15-37) U/L ALT 39 (12-78) U/L Alkaline Phosphatase 81 (45-117) U/L Albumin 2.7 L (3.4-5.0) gm/dl (1) UTI (urinary tract infection) Hematuria presence: without hematuria Urinary tract infection type: site unspecified Qualified Code(s): N39.0 - Urinary tract infection, site not specified
--- NOTE | 2018-11-15 13:08 | Discharge Summary ---
Date of Service November 15, 2018 Admission HPI Per Admitting Provider This is a 73-year-old female who has a significant past medical history of HTN, HLD, hyperthyroidism, tobacco abuser who presents to [facility] secondary to fatigue x4 days. Patient was seen in her PCP office this morning secondary to fatigue. During evaluation EKG was obtained which noted patient to be in A. fib with RVR, heart rate [address] depressions. Patient was referred over to ED. For the past 4 days patient has noted profound fatigue, increased somnolence that started approximately 7 PM yesterday Sunday. She overall has felt feverish with off-and-on chills interm ittently, but denies taking her temperature. Further complains of intermittent loose stool. Lastly this morning patient felt substernal chest, "pressure, " described as heaviness, 2/10, nonradiating, resolved in minutes, never experienced in the past. Denies lightheaded, dizziness, syncope, hemoptysis, shortness of breath at rest or with exertion, nausea, vomiting, abdominal pain, dysuria, hematuria, increased urgency or frequency with urination. Appetite has been normal up until past few days. She is to go see grandson in [place], [place] for Prom tomorrow and is down that she may not be able to. Sister is at bedside. Pt denies hx of afib or ever being on oral anticoagulation. According to [facility] in 10/2005 pt hospitalized for acute afib with rvr, placed on heparin gtt and d/c with warfarin. Notably at that time she was also dx with thyroid goiter and hyperthyroid started on tapazole. Admission Exam Per Admitting Provider Gen: WD/WN, F, NAD, sitting up in bed, pleasant, conversing easily Head: Normocephalic, Atraumatic Eyes: Sclera normal, no conjunctival injection, PERRLA, EOMI ENT: Gross hearing intact, normal pharynx, mucous membranes moist Neck: supple, no adenopathy, No JVD, no bruit, Resp: Clear to auscultation b/l but diminished breath sounds at bases, no wheeze, rales, rhonchi. 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 Extremities: No edema bilaterally Skin: warm, moist, no rash, negative turgor, cap refill < 2sec Neuro: Alert and oriented x 3, speech normal, good mood/affect, cran nerve 2-12 intact grossly : deferred Principal Diagnosis Discharge Information Discharge Diagnosis Atrial Fibrillation Hypokalemia Possible Urinary tract Infection Thrombocytopenia Discharge Goals Decrease discomfort,Improve disease control, Improve function Discharge Activity Limitations Resume your previous activity Discharge Data Allergies Allergy/AdvReac Type Severity Reaction Status Date / Time prednisone AdvReac Intermediate "GOT REAL Verified 11/14/18 11:41 TENSE" Consultations 11/14/18 12:41 ED Decision to Admit Stat 11/14/18 13:36 Consult Cardiology Routine Procedures Performed CT heaD: No acute intracranial abnormality. Mild age-related change. CXR: 1. Minimal basilar opacities likely atelectasis or scarring. 2. Mild cardiomegaly . No other convincing evidence of acute cardiopulmonary disease. Ordered Studies 11/14/18 17:34 CT head/brain wo con Urgent Hospital Course (1) Atrial fibrillation: Patient is a 73 yr female with H/O HTN, HLD, hyperthyroidism, tobacco abuser who presents to [facility] secondary to fatigue x4 days. Afib RVR New Onset Unknown duration Hypokalemia could have trigged the afib CXR:Minimal basilar opacities likely atelectasis or scarring. Mild cardiomegaly . No other convincing evidence of acute cardiopulmonary disease. ECHO: EF:55-60%, No segmental left ventricular wall motion, Grade II diastolic dysfunction, Normal left atrial size Spontaneously converted to Sinus Needs repeat TSH, Free T 4 tested as outpatient Replace electrolytes as needed Continue Metoprolol Started on Eliquis for anticoagulation Planned for Stress test as outpatient Needs follow up with Cardiology upon discharge (2) Elevated troponin: likely in setting of demand ischemia due to Afib RVR Troponin trended down Denies chest pain ECHO: no wall motion abnormality Plan for stress test as outpatient Appreciate cardiology input (3) Hypokalemia: Replace electrolytes as needed (4) UTI (urinary tract infection): Initial urinalysis suggestive for UTI Patient denies Dysuria, frequency, abd pain Received Rocephin day #2 Will transition to Keflex Urine Culture: Contaminated sample (5) HTN (hypertension): Labile Continue Lopressor, lisinopril (6) Hyperthyroidism: Continue methimazole 5 mg twice daily TSH mildly elevated 4.85, free T4 mildly low at 0.77 Repeat TSH in 2 weeks and follow-up with scaffold worker Dr. Archibald (7) Hyperlipidemia: Continue statin (8) Microscopic hematuria: Likely due to UTI given hx of tobacco abuse if still present will need further urologic work up (9) Thrombocytopenia: Platelet count 76, prior CBC revealed normal platelets Lyme Screen is negative Anaplasmosis serology: pending Received IV Rocephin for UTI Continue Doxycycline while work up is pending (10) Tobacco abuse: nicotine patch ordered encourage smoking cessation (11) DVT prophylaxis: SCDS/TEDS Re: thrombocytopenia Disposition: D/C to home today Total Time Total Time Spent Total Time Spent (In Minutes): 36 minutes Total Time Includes: Examination of the Patient, Discharge Planning, Medication Reconciliation, Communication With Other Providers and Other Discharge Plan Discharge Items Patient Disposition: Home - Self-Care Reason For Visit: AFIB, ELEVATED TROPONIN Discharge Diagnosis: Atrial Fibrillation Hypokalemia Possible Urinary tract Infection Thrombocytopenia Discharge Goals: Decrease discomfort, Improve disease control and Improve function Activity: Resume your previous activity Exercise/Sports: Gradually increase as tolerated Non-emergency contact: Primary Care Provider and Limo Driver Call non-emergency contact if: you have any medication questions, your symptoms worsen, your pain is not controlled, your pain is worsening, your pain is unusual for you, your pain is concerning for you and you have a fever Follow-up/Referrals: Clement Danielle MD [Primary Care Provider] - Diet: Heart Healthy Add Provider Instructions: Follow up with on November 19, 2018 at 10:45 AM Follow up with your Limo Driver in 1 month Follow up with your Product Tester Dr.Dr. Archibald in 2-3 weeks Get Stress test as per your Limo Driver's recommendations as outpatient Get blood test-Thyroid function test as per your scaffold worker Complete the antibiotic course for possible Urinary Tract infection as advised Your blood work for possible Anaplasmosis is pending, Continue Doxycycline until results available. Further recommendations as per your doctor Plan to see your Urologist if your repeat Urine analysis shows blood after completing antibiotic course Quit smoking Tobacco as advised Seek immediate medical attention if your symptoms reoccur or worsen Prescriptions: New doxycycline hyclate 100 mg Capsule 100 mg PO DAILY@0600,1800 10 Days Qty: 20 RF: 0 potassium chloride [Klor-Con M20] 20 mEq Tablet,Er Particles/Crystals 40 meq PO QAM 30 Days Qty: 60 RF: 0 Eliquis 5 mg Tablet 5 mg PO BID 30 Days Qty: 60 RF: 1 cephalexin [Keflex] 500 mg capsule 500 mg PO BID 4 Days Qty: 8 RF: 0 Continued atorvastatin 20 mg Tablet 20 mg PO QAM RF: 0 metoprolol tartrate 100 mg Tablet 100 mg PO BID RF: 0 aspirin [Aspir-81] 81 mg Tablet,Delayed Release (Dr/Ec) 81 mg PO HS RF: 0 omega [id number]-fish oil [Fish Oil] 1,000 mg (120 mg-180 mg) Capsule 1 tab PO QPM RF: 0 PreserVision AREDS [id number] [id number] Tablet 1 tab PO BID RF: 0 methimazole 5 mg tablet 5 mg PO BID RF: 0 lisinopril 20 mg tablet 20 mg PO DAILY RF: 0 Stand-Alone Forms: Call Back Authorization, [facility] Discharge Orders: Discharge Order (Routine); Ordered 11/15/18 Ordered By: Sunday Condon Admission Data Admit Date/Time: 11/14/18 13:36 Attending Provider: Sunday Condon Admit Provider: Luciano Donovan Primary Care Provider: Clement Danielle Other Providers: Fausto Barrera ; Luciano Donovan Service: Telemetry Medical Other Interventions: Discharge Summary Assessment (RN) Last Done: 11/15/18 13:10 Pending Studies at Discharge: Yes Studies:: Serological work up DC Date/Time DO NOT enter until pt leaves facility: 11/15/18 13:35
--- NOTE | 2018-11-15 14:23 | Consultation Report ---
DATE OF CONSULTATION: 11/14/2018 INPATIENT CARDIOLOGY CONSULTATION CONSULTATION REQUESTED BY: Iona Adam PA-C REASON FOR CONSULTATION: New onset atrial fibrillation with rapid ventricular response. HISTORY OF PRESENT ILLNESS: Ms. Donovan is a very pleasant 73-year-old woman who presented to [facility] Emergency Department from her primary care physician's office today after being found to be in atrial fibrillation with rapid ventricular response. She initially went in to see her PCP today because she was not feeling well. She states for the last 4 days she has just been feeling exhausted. She was not quite able to put her finger on it, but she just did not feel well, felt very rundown, just not herself. She specifically denied experiencing any chest pain, shortness of breath, palpitations, lightheadedness, dizziness or syncope. She has otherwise been taking her medications as directed without issue and she has not had any other recent issues. When she presented to her primary care physician's office, she was noted to be tachycardic. A 12-lead EKG was performed which reveals atrial flutter with 2:1 conduction along with inferior and lateral ST segment depressions. Upon presentation to the Emergency Room, she spontaneously converted to normal sinus rhythm. She states that she did sleep for a while in the Emergency Room and now she feels much better. She states that she feels her energy back as well as her strength. Of note, she also notes over the last several days that she has been having more trouble concentrating and having more issues with her memory than normal, but she denies any focal deficits. PAST SURGICAL HISTORY: 1. Partial colon resection. 2. A-port placement and subsequent removal. 3. Colonoscopies. 4. Total abdominal hysterectomy. MEDICAL ILLNESSES: 1. Hypertension. 2. Hyperthyroidism. 3. Hyperlipidemia. 4. History of colon cancer. 5. Tobacco abuse. 6. Basal cell carcinoma. FAMILY HISTORY: Noncontributory. SOCIAL HISTORY: The patient is a lifelong smoker, smokes a pack and half a day. Denies any alcohol or recreational drug use. She is . She lives at home with her . 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 She has been having more difficulty keeping the books as of late as well. REVIEW OF SYSTEMS: As per HPI. All review of systems reviewed and negative at this time. ALLERGIES: PREDNISONE. MEDICATIONS AN OUTPATIENT: 1. Aspirin 81 mg daily. 2. Metoprolol tartrate 100 mg b.i.d. 3. Tapazole 5 mg b.i.d. 4. Lisinopril 5 mg daily. 5. Atorvastatin 20 mg daily. 6. Fish oil. PHYSICAL EXAMINATION: VITALS: Temperature 36.6, pulse 67, respiratory rate 12, blood pressure 147/85. GENERAL: Awake, alert and oriented x3 in no acute distress. HEENT: Normocephalic, atraumatic. Pupils equal, round, reactive to light and accommodation. Extraocular muscles intact. Anicteric sclerae. Moist mucous membranes. NECK: No JVD, no bruit. CARDIOVASCULAR: Regular. Positive S4. Normal S1 and S2. No S3. A 3/6 mid to late systolic ejection murmur greatest at the right sternal border second intercostal space with radiation to bilateral carotids. No rubs. PULMONARY: Poor air movement bilaterally, otherwise, clear. No rales, rhonchi or wheezing. ABDOMEN: Bowel sounds x4, soft. No rebound, guarding or tenderness. No organomegaly. EXTREMITIES: No clubbing, cyanosis or edema. +2 pedal pulses bilaterally. SKIN: Warm and dry. TEST RESULTS: A 12-lead EKG performed at [facility] independently reviewed, shows atrial flutter, 2:1 conduction. Repeat EKG here in the Emergency Department shows normal sinus rhythm at 62 beats per minute and ST segment changes have resolved. LABORATORY STUDIES OF SIGNIFICANCE: Sodium 138, potassium 2.8, BUN 19, creatinine 1.1. TSH of 4.85. IMPRESSION: 1. Atrial flutter with 2:1 conduction with a CHADS-VASc score of 3. 2. Hypertension. 3. Worsening memory and concentration as of late. 4. Significant hypokalemia with a K of 2.8. 5. History of hyperthyroidism, on Tapazole. RECOMMENDATIONS: It was my pleasure to see Ms. Donovan in consultation today. The pathophysiology and treatment options of atrial fibrillation were discussed with the patient and her son who was present at the bedside at great length. She was counseled at this point, I believe the most prudent course of action would be to continue on her metoprolol and add a systemic blood thinner. After a lengthy discussion, it was agreed that she would prefer Eliquis and 5 mg b.i.d. will be started as well. Her potassium should be followed very closely and repleted to keep it between 4 and 5 and given her worsening memory issues and this new diagnosis of atrial fibrillation, I do believe a head CT or possibly even an MRI should be performed to rule out any cardioembolic events.
--- OUTSIDE RECORDS SUMMARY | 2018-11-18 21:14 | External Medical Summary | Continuity of Care Document ---
:1945 Author Name Bri Kim, Provider Address Unavailable Unavailable , Care Team Providers Name Role Phone Jose Kim, Dony Richard Unavailable [email or web address] Anxiety (300.00) (F41.9) Atrial fibrillation (427.31) (I48.91) Depression (311) (F32.9) Goiter (240.9) (E04.9) Multiple thyroid nodules (241.1) (E04.2) Hyperthyroidism (242.90) (E05.90) Hypertension (401.9) (I10) Allergies and Adverse Reactions No Known Drug Allergies (Allergy) Medications Fish Oil 1000 MG Oral Capsule; TAKE 1 CAPSULE Daily Start: 13-Feb-2018 Refills: 0 PreserVision AREDS Oral Tablet; TAKE 1 TABLET DAILY. Start: 13-Feb-2018 Refills: 0 Aspirin 81 MG Oral Tablet Delayed Release; TAKE 1 TABLET SAVANAH LY DIRECTED. Start: 13-Feb-2018 Refills: 0 Colestipol HCl - 1 GM Oral Tablet; TAKE 1 TABLET Every other day Start: 07-Feb-2017 Refills: 0 methIMAzole 5 MG Oral Tablet; TAKE TWO TABLETS BY MOUT H ONCE DAILY Judy Garcia Dony S. Start: 07-Feb-2017 Quantity: 180 Refills: 3 Metoprolol Tartrate 100 MG Oral Tablet; TAKE 1 TABLET TWICE DAILY. Start: 07-Feb-2017 Quantity: 180 Refills: 1 Lisinopril 10 MG Oral Tablet; TAKE 1 TABLET DAILY. Start: 07-Feb-2017 Quantity: 90 Refills: 0 Atorvastatin Calcium 20 MG Oral Tablet; TAKE 1 TABLET AT BED TIME. Start: 07-Feb-2017 Quantity: 30 Refills: 3 Procedures History of Colon Surgery Status: Complet ed Immunizations Immunizations not documented Family History natural daughter Family history of malignant neoplasm (V16.9) (Z80.9) Status: Active Sister Family history of malignant neoplasm (V16.9) (Z80.9) Status: Active Mother Family history of scoliosis (V17.89) (Z82.69) Status: Active Father Family history of cardiac disorder (V17.49) (Z82.49) Status: Active Plan of Treatment Planned Encounters Appointment; Dony Garcia M.D. Start: 13-Feb-2019 10:10 Re quest Planned Observations Planned Goals not documented Results No Known Results Results not documented Encounters Appointment; Dony Garcia M.D. 13-Feb-2018 9:20 Encounter Diagnosis: Problem not documented Appointment; Dony Garcia M.D. 07-Feb-2017 9:10 Encounter Diagnosis: Problem not documented Appointment; Dony Garcia M.D. 13-Feb-2019 10:10 Encounter Diagnosis: Problem not documented
[2018-11-19 12:06] LABS: Anaplasma phagocytophila IgM <1:20 (<1:20)
== END 2018-11-15 13:35 | disposition home or self-care (01) ==
LOC: ED 10:05 → 2N 10:05

== ENCOUNTER 2023-02-08 11:20 | Inpatient (IN) ==
--- NOTE | 2023-02-08 12:19 | Emergency Department Note ---
Impression & Plan Atrial fibrillation with rapid ventricular response, Abdominal pain, Acute dehydration, Acidosis, lactic ED Provider Note NAME: SHIRLEY GODINEZ AGE: 77 SEX: F : 1945 ARRIVES VIA: Walk-In INFORMANT: Patient, ED PROVIDER(S): Ermias Harris MD CHIEF COMPLAINT: Abdominal pain MEDICAL DECISION MAKING: Patient presents due to concern for abdominal pain nausea vomiting and diarrhea. The patient does not examine well and thus a CT of the chest abdomen pelvis were performed. IV was established and blood work was obtained the patient was ordered Zofran IV fluids as well as nausea medication. The patient did present with significant abdominal pain and this is CT PE protocol as well as angiography of the abdomen and pelvis were ordered. The patient was ordered IV pain medication and IV fluids as clinically the patient appears dehydrated. Patient has a mild white count of 11. The patient did receive empiric Zosyn as a precaution given the patient's abdominal exam. Hemoglobin is elevated 18.6 which would be consistent with dehydration. Platelet normal. Kidney function is unremarkable. Initial lactate is 6.1. The patient did receive her additional IV fluids. Procalcitonin is not elevated COVID-negative. TSH low but free T4 normal. Repeat lactate of 4.6. Upon reassessment the patient has significant improvement in symptoms to where they essentially resolved. The patient was was still noted to be in A-fib and RVR and given that the patient CTs did show some pulmonary edema decision was made to give the patient a Cardizem bolus and start patient on Cardizem drip. Patient's CT angiography of the chest does not show any PE. Does show the patient has a lung malignancy which the patient already had conveyed. Mild interstitial pulmonary edema and severe emphysema. Patient does have mild left hydro but no evidence ureteral calculi. Patient does have atherosclerotic plaque and severe stenosis of the right superficial femoral and moderate stenosis of the left superficial femoral artery. Patient has normal sensation and palpable pulses. Given the patient's elevated lactate A-fib and RVR and dehydration I did speak the on-call hospitalist service Iona Edmonds PA-C and the patient was admitted by Dr. Bradford. Critical Care: I have personally spent 75 minutes of critical care time in direct management of this patient. This includes bedside care, interpretation of diagnostic studies, and testing, discussion with consultants, patient, and family members, and other require inpatient management activities. This 75 minutes is in excess of all separately billable procedures. Prior /Outside records reviewed: I did review an endocrinology visit from Vern Kelly from November 2020. Patient that time had thyroid Gorder and hypothyroidism known history of multiple thyroid nodules Differential diagnosis: Appendicitis, TOA, PID, perforated viscus,diverticulitis, UTI, obstruction, mesenteric ischemia, aortic pathology, inflammatory bowel disease, renal colic, PUD, pancreatitis, biliary pathology, hernia, volvulus, constipation, as well as other pathologies. Diagnostics, as interpreted by me: ECG: A-fib with RVR, rate of 141, normal QRS, right axis deviation, no obvious ST elevations. Cardiac monitoring: An order was placed for continuous cardiac monitoring. The monitor shows a rate of 142 with irregular irregular tachycardic rhythm. Patient was placed on pulse oximetry Medical decision rules: Wells score Imaging studies: See below I informally reviewed the patient's CT angiography of the chest which does show some pulmonary edema. HPI: Patient presents due to concern for abdominal pain which she describes as diffuse with associated nausea vomiting and diarrhea. Patient states this began last evening and that was preceded by some diarrhea. No reported blood in the vomit or stool. Patient denies any known sick contacts or recent travel. Patient denies any falls or trauma. The patient states that she has not had a bowel movement about a day and a half but is still passing gas. The patient did not take anything for her symptoms at home. Patient states that she did not take her home medications prior to arrival. Patient does have a known history of A-fib and does take Eliquis. Patient denies any headache or neck pain. Patient denies any alcohol use but does use tobacco. PAST MEDICAL HISTORY: See Below PAST SURGICAL HISTORY: See Below SOCIAL HISTORY: See Below HOME MEDICATIONS: See Below ALLERGIES: See Below VITALS: See Below PHYSICAL EXAMINATION: GENERAL: Uncomfortable in appearance, mild distress EYE EXAM: Normal conjunctiva. PERRL, no anisocoria and EOM's grossly intact w/o pain. OROPHARYNX: Moist mucus membranes, grossly normal dentition. NECK: Supple, no nuchal rigidity, no adenopathy, non-tender. No signs of meningismus. FROM of the neck with good chin to chest and neck extension. No stridor. LUNGS: Clear to auscultation. Normal chest wall mechanics. HEART: Irregularly irregular and tachycardic, no MRG. ABDOMEN: Abdomen soft, moderate diffuse discomfort without localizing pain, mild guarding. No rebound. BACK: No CVA TTP. SKIN: No rashes and no bruising. UPPER EXTREMITIES: Upper extremities are grossly normal. LOWER EXTREMITIES: DP pulses present bilaterally, no swelling NEURO EXAM: A&O x3, cranial nerves II-XII grossly intact, normal speech, moves all 4 extremities. Past Med/Surg History Medical History Atrial fibrillation HX OF A-FIB (HOSPITALIZED 10/2018) NO CURRENT PROBLEMS Colon cancer CHEMO TREATMENT (COLON POLYPS REMOVED) History of diverticulitis HTN (hypertension) Hyperlipidemia Hyperthyroidism Multiple thyroid nodules Neuropathy b/l hands and feet Thyroid goiter Vocal cord polyps Surgical History Cyst REMOVED FROM BEHIND EAR H/O: hysterectomy History of tonsillectomy and adenoidectomy History of tooth extraction Hx of appendectomy Hx of colonoscopy with polypectomy (malignant) Family History Father Lung cancer Daughter Breast cancer Grandfather (Maternal) Coronary heart disease, Onset Age: 76 Social History Smoking Status: Current every day smoker Cigarettes Per Day: 20 CIG DAILY; Second Hand Exposure: Yes; Do You Dip or Chew Tobacco: No; Hx Alcohol Use: No Hx Substance Use: No Preferred Language: German Communication Ability: Effective Staff Home Therapy Rn Required: No Beliefs That Will Affect Care: None Current Living Situation: Spouse and Family Current Living Situation Comment: sister and Other Information That Helps Us Care for You: No Feels Safe at Home: Yes Safety Concerns: Feels Safe At This Time Assistive Devices: None Assistive Devices Comment: cane and walker at home Allergies Allergies Allergy/AdvReac Type Severity Reaction Status Date / Time prednisone AdvReac Intermediate "GOT REAL Verified 12/02/20 09:15 TENSE" Home Meds Home Medications Medication Instructions Recorded Confirmed aspirin 81 mg tablet,delayed 81 mg PO HS 04/30/18 02/08/23 release (Aspir-) metoprolol tartrate 100 mg tablet 100 mg PO BID 04/30/18 02/08/23 omega 6-csg-ghq-fish oil 1,000 mg 1 tab PO QPM 04/30/18 02/08/23 (120 mg-180 mg) capsule (Fish Oil) vitamins A,C,R-fpxi-dkitlf 2,148 1 tab PO BID 04/30/18 02/08/23 mcg-113 mg-45 mg-17.4 mg tablet (PreserVision AREDS) atorvastatin 40 mg tablet 40 mg PO QAM 05/26/19 02/08/23 potassium chloride 10 mEq 20 meq PO QPM 05/26/19 02/08/23 capsule,extended release vitamin B complex (B 1 tab PO DAILY 12/02/20 02/08/23 Complex-Vitamin B12 tablet) apixaban 5 mg tablet 5 mg PO BID 02/08/23 02/08/23 lisinopril 40 mg tablet 40 mg PO DAILY 02/08/23 02/08/23 methimazole 5 mg tablet 5 mg PO TID 02/08/23 02/08/23 Results & Data (ED) Vital Signs Vital Signs - 24 hr 02/08/23 11:23 02/08/23 11:37 02/08/23 11:34 Temperature 36.4 C L Temperature Source Temporal Artery Scan Pulse Rate 126 H 125 H Pulse Rate from SpO2 Sensor Pulse Rhythm Regular Pulse Strength Normal Respiratory Rate 24 Respiratory Effort / Characteristics Non-Labored Respiratory Depth Normal Respiratory Pattern Regular Blood Pressure 178/121 H 179/142 H Blood Pressure Mean 140 152 Blood Pressure Position Sitting Pulse Oximetry 96 Oxygen Delivery Method Room Air Sepsis Recent Fever Within 48 Hours No Sepsis New/Unexplained Change in Mental Status No Sepsis Action Taken by Nursing No Action Required 02/08/23 11:34 02/08/23 12:00 02/08/23 12:00 Temperature Temperature Source Pulse Rate 140 H 137 H Pulse Rate from SpO2 Sensor 131 H 135 H Pulse Rhythm Pulse Strength Respiratory Rate 19 26 H Respiratory Effort / Characteristics Respiratory Depth Respiratory Pattern Blood Pressure 170/135 H Blood Pressure Mean 145 Blood Pressure Position Pulse Oximetry 94 93 Oxygen Delivery Method Sepsis Recent Fever Within 48 Hours Sepsis New/Unexplained Change in Mental Status Sepsis Action Taken by Nursing 02/08/23 12:30 02/08/23 12:30 Temperature Temperature Source Pulse Rate 135 H Pulse Rate from SpO2 Sensor 144 H Pulse Rhythm Pulse Strength Respiratory Rate 35 H Respiratory Effort / Characteristics Respiratory Depth Respiratory Pattern Blood Pressure 166/133 H Blood Pressure Mean 138 Blood Pressure Position Pulse Oximetry 93 Oxygen Delivery Method Sepsis Recent Fever Within 48 Hours Sepsis New/Unexplained Change in Mental Status Sepsis Action Taken by Snf Medications Current Medication List: was personally reviewed by me Laboratory Data Attestation: I reviewed the patient's lab results. 02/08/23 11:49 02/08/23 11:49 Lab Results 02/08/23 02/08/23 02/08/23 Range/Units 11:49 11:49 12:38 WBC 11.24 H (4.8-10.8) K/ul RBC 6.38 H (4.20-5.40) M/uL Hgb 18.6 H (12.0-16.0) g/dl Hct 56.9 H (37.0-47.0) % MCV 89.2 (80.0-100.0) fL MCH 29.2 (25.0-34.0) pg MCHC 32.7 (32.0-36.0) g/dL RDW Std Deviation 52.5 H (36.4-46.3) fL RDW Coeff of Anjali 17.7 H (11.5-14.5) % Plt Count 254 (130-400) K/uL MPV 9.2 L (9.4-12.4) fL Immature Gran % (Auto) 0.4 % Neut % (Auto) 83.7 % Lymph % (Auto) 12.4 % Dare % (Auto) 3.2 % Eos % (Auto) 0.0 % Baso % (Auto) 0.3 % Neut # (Auto) 9.42 H (1.40-6.50) K/uL Lymph # (Auto) 1.39 (1.2-3.4) K/uL Dare # (Auto) 0.36 (0.11-0.59) K/uL Eos # (Auto) 0.00 (0-0.50) K/uL Baso # (Auto) 0.03 (0-0.2) K/uL Immature Gran # (Auto) 0.04 (0.01-0.20) K/uL Sodium 142 (136-145) mmol/L Potassium 5.0 (3.5-5.1) mmol/L Chloride 105 (98-107) mmol/L Carbon Dioxide 23 (21-32) mmol/L Anion Gap 14 H (3-11) BUN 17 (6-23) mg/dl Creatinine 1.10 (0.6-1.2) mg/dl Est Cr Clr Drug Dosing 39.2 ml/min Est GFR ( Amer) 56.5 ml/min Est GFR (Non-Af Amer) 48.7 ml/min BUN/Creatinine Ratio 15.5 (10-20) Glucose 162 H (70-99(Fasting)) mg/dl Lactate 6.1 H* (0.4-2.0) mmol/L Calcium 10.7 H (8.6-10.3) mg/dl Total Bilirubin 1.4 H (0.2-1.0) mg/dl AST 28 (13-39) U/L ALT 22 (7-52) U/L Alkaline Phosphatase 154 H (34-104) U/L Total Protein 8.1 (6.0-8.3) gm/dl Albumin 4.9 (3.4-5.0) gm/dl Globulin 3.2 (2.5-4.0) gm/dl Albumin/Globulin Ratio 1.5 (0.9-2) Procalcitonin (0-0.5) ng/ml TSH (0.300-4.500) uIu/ml Free T4 (0.61-1.60) ng/dl SARS-CoV-2, RNA, NAAT (NEGATIVE) 02/08/23 02/08/23 02/08/23 Range/Units 12:38 12:38 12:41 WBC (4.8-10.8) K/ul RBC (4.20-5.40) M/uL Hgb (12.0-16.0) g/dl Hct (37.0-47.0) % MCV (80.0-100.0) fL MCH (25.0-34.0) pg MCHC (32.0-36.0) g/dL RDW Std Deviation (36.4-46.3) fL RDW Coeff of Anjali (11.5-14.5) % Plt Count (130-400) K/uL MPV (9.4-12.4) fL Immature Gran % (Auto) % Neut % (Auto) % Lymph % (Auto) % Dare % (Auto) % Eos % (Auto) % Baso % (Auto) % Neut # (Auto) (1.40-6.50) K/uL Lymph # (Auto) (1.2-3.4) K/uL Dare # (Auto) (0.11-0.59) K/uL Eos # (Auto) (0-0.50) K/uL Baso # (Auto) (0-0.2) K/uL Immature Gran # (Auto) (0.01-0.20) K/uL Sodium (136-145) mmol/L Potassium (3.5-5.1) mmol/L Chloride (98-107) mmol/L Carbon Dioxide (21-32) mmol/L Anion Gap (3-11) BUN (6-23) mg/dl Creatinine (0.6-1.2) mg/dl Est Cr Clr Drug Dosing ml/min Est GFR ( Amer) ml/min Est GFR (Non-Af Amer) ml/min BUN/Creatinine Ratio (10-20) Glucose (70-99(Fasting)) mg/dl Lactate (0.4-2.0) mmol/L Calcium (8.6-10.3) mg/dl Total Bilirubin (0.2-1.0) mg/dl AST (13-39) U/L ALT (7-52) U/L Alkaline Phosphatase (34-104) U/L Total Protein (6.0-8.3) gm/dl Albumin (3.4-5.0) gm/dl Globulin (2.5-4.0) gm/dl Albumin/Globulin Ratio (0.9-2) Procalcitonin < 0.05 (0-0.5) ng/ml TSH 0.010 L (0.300-4.500) uIu/ml Free T4 0.77 (0.61-1.60) ng/dl SARS-CoV-2, RNA, NAAT NEGATIVE (NEGATIVE) 02/08/23 Range/Units 14:24 WBC (4.8-10.8) K/ul RBC (4.20-5.40) M/uL Hgb (12.0-16.0) g/dl Hct (37.0-47.0) % MCV (80.0-100.0) fL MCH (25.0-34.0) pg MCHC (32.0-36.0) g/dL RDW Std Deviation (36.4-46.3) fL RDW Coeff of Anjali (11.5-14.5) % Plt Count (130-400) K/uL MPV (9.4-12.4) fL Immature Gran % (Auto) % Neut % (Auto) % Lymph % (Auto) % Dare % (Auto) % Eos % (Auto) % Baso % (Auto) % Neut # (Auto) (1.40-6.50) K/uL Lymph # (Auto) (1.2-3.4) K/uL Dare # (Auto) (0.11-0.59) K/uL Eos # (Auto) (0-0.50) K/uL Baso # (Auto) (0-0.2) K/uL Immature Gran # (Auto) (0.01-0.20) K/uL Sodium (136-145) mmol/L Potassium (3.5-5.1) mmol/L Chloride (98-107) mmol/L Carbon Dioxide (21-32) mmol/L Anion Gap (3-11) BUN (6-23) mg/dl Creatinine (0.6-1.2) mg/dl Est Cr Clr Drug Dosing ml/min Est GFR ( Amer) ml/min Est GFR (Non-Af Amer) ml/min BUN/Creatinine Ratio (10-20) Glucose (70-99(Fasting)) mg/dl Lactate 4.6 H* (0.4-2.0) mmol/L Calcium (8.6-10.3) mg/dl Total Bilirubin (0.2-1.0) mg/dl AST (13-39) U/L ALT (7-52) U/L Alkaline Phosphatase (34-104) U/L Total Protein (6.0-8.3) gm/dl Albumin (3.4-5.0) gm/dl Globulin (2.5-4.0) gm/dl Albumin/Globulin Ratio (0.9-2) Procalcitonin (0-0.5) ng/ml TSH (0.300-4.500) uIu/ml Free T4 (0.61-1.60) ng/dl SARS-CoV-2, RNA, NAAT (NEGATIVE) Administered Medications Apixaban (Apixaban 5 Mg Tablet) 5 mg PO BID CHERRY Stop: 03/10/23 20:59 Last Admin: 02/10/23 08:19 Dose: 5 mg Documented By: Admin: 02/09/23 20:31 Dose: 5 mg Documented By: Admin: 02/09/23 08:39 Dose: 5 mg Documented By: Admin: 02/08/23 20:01 Dose: 5 mg Documented By: UNA Aspirin (Aspirin 81 Mg Ectab) 81 mg PO HS CHERRY Stop: 03/10/23 20:59 Last Admin: 02/09/23 20:31 Dose: 81 mg Documented By: Admin: 02/08/23 19:57 Dose: 81 mg Documented By: LMP Atorvastatin Calcium (Atorvastatin 40 Mg Tab) 40 mg PO QAM CHERRY Stop: 03/11/23 08:59 Last Admin: 02/10/23 08:19 Dose: 40 mg Documented By: Admin: 02/09/23 08:39 Dose: 40 mg Documented By: MYRON Fish Oil ([place]-3 (Purified Fish Oil) 1 Gm Cap) 1 gm PO QPM CHERRY Stop: 03/10/23 20:59 Last Admin: 02/09/23 20:40 Dose: 1 gm Documented By: Admin: 02/08/23 19:57 Dose: 1 gm Documented By: UAN Ceftriaxone Sodium 2,000 mg/ (Dextrose) 70 mls @ 100 mls/hr IV Q24H CHERRY; Protocol Stop: 02/18/23 18:59 Last Infusion: 02/09/23 19:22 Dose: 0 mls/hr Documented By: Admin: 02/09/23 18:40 Dose: 100 mls/hr Documented By: Infusion: 02/08/23 21:00 Dose: 0 mls/hr Documented By: Admin: 02/08/23 19:52 Dose: 100 mls/hr Documented By: UNA Sodium Chloride (Nss 1000ml) 1,000 mls @ 100 mls/hr IV .Q10H CHERRY Stop: 03/10/23 20:59 Last Admin: 02/10/23 08:23 Dose: 100 mls/hr Documented By: Infusion: 02/10/23 07:41 Dose: 100 mls/hr Documented By: Admin: 02/09/23 21:41 Dose: 100 mls/hr Documented By: Infusion: 02/09/23 21:41 Dose: 100 mls/hr Documented By: Admin: 02/09/23 11:31 Dose: 100 mls/hr Documented By: Infusion: 02/09/23 07:25 Dose: 100 mls/hr Documented By: Admin: 02/08/23 21:25 Dose: 100 mls/hr Documented By: UNA Diltiazem HCl 125 mg/ Dextrose 125 mls @ 15 mls/hr IV .Q8H20M CHERRY; Protocol Stop: 03/12/23 04:44 Last Titration: 02/10/23 06:50 Dose: 15 mg/hr, 15 mls/hr Documented By: HARI Co-signed By: FLAVIA Titration: 02/10/23 05:45 Dose: 10 mg/hr, 10 mls/hr Documented By: HARI Co-signed By: GH Admin: 02/10/23 04:56 Dose: 5 mg/hr, 5 mls/hr Documented By: HARI Co-signed By: BRI Insulin Aspart (Insulin Aspart Per Unit Charge) 0 units SC ACHS [facility] Stop: 03/10/23 20:59 Last Admin: 02/10/23 08:05 Dose: Not Given Documented By: Admin: 02/09/23 20:56 Dose: Not Given Documented By: Admin: 02/09/23 16:44 Dose: Not Given Documented By: MYRON Co-signed By: CHIO Admin: 02/09/23 11:29 Dose: Not Given Documented By: MYRON Co-signed By: Admin: 02/09/23 07:55 Dose: Not Given Documented By: MYRON Co-signed By: CHIO Admin: 02/08/23 21:08 Dose: 1 units Documented By: UNA Co-signed By: AMINATA Lisinopril (Lisinopril 40 Mg Tab) 40 mg PO QAM [facility] Stop: 03/11/23 10:14 Last Admin: 02/10/23 08:18 Dose: 40 mg Documented By: Admin: 02/09/23 11:30 Dose: 40 mg Documented By: MYRON Methimazole (Methimazole 5 Mg Tablet) 5 mg PO TID CHERRY Stop: 03/10/23 20:59 Last Admin: 02/10/23 08:18 Dose: 5 mg Documented By: Admin: 02/09/23 20:40 Dose: 5 mg Documented By: Admin: 02/09/23 14:59 Dose: 5 mg Documented By: Admin: 02/09/23 08:39 Dose: 5 mg Documented By: Admin: 02/08/23 19:57 Dose: 5 mg Documented By: UNA Metoprolol Succinate (Metoprolol Succ 50mg Ext Rel Tab) 100 mg PO BID CHERRY Stop: 03/11/23 20:59 Last Admin: 02/10/23 08:19 Dose: 100 mg Documented By: Admin: 02/09/23 20:32 Dose: 100 mg Documented By: HARI Metoprolol Tartrate (Metoprolol Tartrate 1 Mg/Ml Vial) 5 mg IV Q6 PRN PRN Reason: Tachycardia Stop: 03/11/23 11:59 Last Admin: 02/10/23 01:05 Dose: 5 mg Documented By: Admin: 02/09/23 18:39 Dose: 5 mg Documented By: MYRON Miscellaneous (Remove Nicoderm Patch) 1 each N/A DAILY@0859 [facility] Stop: 03/11/23 08:58 Last Admin: 02/10/23 08:23 Dose: 1 each Documented By: Admin: 02/09/23 08:40 Dose: 1 each Documented By: MYRON Multivitamins/Minerals (Cerovite Adv Formula Tab) 1 tab PO DAILY CHERRY Stop: 03/11/23 08:59 Last Admin: 02/10/23 08:18 Dose: 1 tab Documented By: Admin: 02/09/23 08:38 Dose: 1 tab Documented By: MYRON Nicotine (Nicotine 21 Mg/24 Hr Tdsy) 21 mg TD QAM CHERRY Stop: 03/10/23 18:18 Last Admin: 02/10/23 08:19 Dose: 21 mg Documented By: Admin: 02/09/23 08:39 Dose: 21 mg Documented By: Admin: 02/08/23 19:54 Dose: 21 mg Documented By: UNA Potassium Chloride (Potassium Chloride Crtab 20 Meq Tabcr) 20 meq PO QPM CHERRY Stop: 03/10/23 20:59 Last Admin: 02/09/23 20:31 Dose: 20 meq Documented By: Admin: 02/08/23 19:57 Dose: 20 meq Documented By: UNA Vitamin B Complex (Vitamin B Complex Tab) 1 tab PO DAILY CHERRY Stop: 03/11/23 08:59 Last Admin: 02/10/23 08:18 Dose: 1 tab Documented By: Admin: 02/09/23 08:40 Dose: 1 tab Documented By: MYRON Discontinued Medications Diltiazem HCl (Diltiazem Hcl 120 Mg Capcr) 120 mg PO QAM CHERRY Stop: 03/11/23 10:44 Last Admin: 02/10/23 08:18 Dose: 120 mg Documented By: Admin: 02/09/23 11:30 Dose: 120 mg Documented By: MYRON Diltiazem HCl (Diltiazem Hcl 5 Mg/Ml 5 Ml Vial) 10 mg IV NOW STA Stop: 02/09/23 21:23 Last Admin: 02/09/23 21:41 Dose: 10 mg Documented By: HARI Co-signed By: BRI Diltiazem HCl (Diltiazem Hcl 5 Mg/Ml 5 Ml Vial) 10 mg IV NOW STA Stop: 02/10/23 04:38 Last Admin: 02/10/23 04:54 Dose: 10 mg Documented By: HARI Co-signed By: BRI Sodium Chloride (Nss 1000ml) 1,000 mls @ 999 mls/hr IV .Q1H1M ONE Stop: 02/08/23 13:25 Last Infusion: 02/08/23 14:29 Dose: 0 mls/hr Documented By: Admin: 02/08/23 12:42 Dose: 999 mls/hr Documented By: MILY Piperacillin Sod/Tazobactam Sod (Zosyn) 4.5 gm in 120 mls @ 240 mls/hr IV NOW ONE Stop: 02/08/23 12:54 Last Infusion: 02/08/23 13:14 Dose: 0 mls/hr Documented By: Admin: 02/08/23 12:43 Dose: 240 mls/hr Documented By: MILY Diltiazem HCl 125 mg/ Dextrose 125 mls @ 10 mls/hr IV .[id number] ONE; Protocol Stop: 02/09/23 03:17 Last Titration: 02/09/23 06:44 Dose: 0 mg/hr, 0 mls/hr Documented By: UNA Co-signed By: BRI Titration: 02/09/23 03:52 Dose: 10 mg/hr, 10 mls/hr Documented By: UNA Co-signed By: BRI Admin: 02/08/23 15:21 Dose: 5 mg/hr, 5 mls/hr Documented By: DELLA Co-signed By: BRANDIN Sodium Chloride (Nss 1000ml) 500 mls @ 999 mls/hr IV .Q31M ONE Stop: 02/08/23 15:19 Last Infusion: 02/08/23 17:35 Dose: 999 mls/hr Documented By: Admin: 02/08/23 15:20 Dose: 999 mls/hr Documented By: DELLA Lactated Ringer's (Lr) 1,000 mls @ 100 mls/hr IV .Q10H CHERRY Stop: 02/09/23 12:14 Last Infusion: 02/08/23 20:59 Dose: 0 mls/hr Documented By: Infusion: 02/08/23 19:58 Dose: 100 mls/hr Documented By: Infusion: 02/08/23 19:08 Dose: 0 mls/hr Documented By: RDRosalba Admin: 02/08/23 18:45 Dose: 100 mls/hr Documented By: RDRosalba Sodium Chloride (Nss 1000ml) 500 mls @ 999 mls/hr IV .Q31M ONE Stop: 02/08/23 20:45 Last Infusion: 02/08/23 21:27 Dose: 0 mls/hr Documented By: Admin: 02/08/23 20:50 Dose: 999 mls/hr Documented By: UNA Magnesium Sulfate/Dextrose (Magnesium Sulfate / D5w) 1 gm in 100 mls @ 50 mls/hr IV Q2H CHERRY Stop: 02/09/23 07:59 Last Infusion: 02/09/23 08:33 Dose: 0 mls/hr Documented By: Admin: 02/09/23 06:01 Dose: 50 mls/hr Documented By: Infusion: 02/09/23 06:01 Dose: 50 mls/hr Documented By: Admin: 02/09/23 04:37 Dose: 50 mls/hr Documented By: UNA Magnesium Sulfate/Dextrose (Magnesium Sulfate / D5w) 1 gm in 100 mls @ 50 mls/hr IV ONE ONE Stop: 02/10/23 09:44 Last Infusion: 02/10/23 10:13 Dose: 0 mls/hr Documented By: Admin: 02/10/23 08:05 Dose: 50 mls/hr Documented By: FLAVIA Ioversol (Ioversol 350 Mg 125ml Prefilled Syringe) 114 ml IV ONCE ONE Stop: 02/08/23 13:49 Last Admin: 02/08/23 13:48 Dose: 114 ml Documented By: SUSAN Metoprolol Tartrate (Metoprolol Tartrate 100 Mg Tab) 100 mg PO BID CHERRY Stop: 03/10/23 20:59 Last Admin: 02/09/23 08:39 Dose: 100 mg Documented By: Admin: 02/08/23 19:56 Dose: 100 mg Documented By: UNA Metoprolol Tartrate (Metoprolol Tartrate 1 Mg/Ml Vial) 2.5 mg IV NOW STA Stop: 02/10/23 08:42 Last Admin: 02/10/23 08:54 Dose: 2.5 mg Documented By: FLAVIA Morphine Sulfate (Morphine Sulfate 4 Mg/Ml 1 Ml Carp\\Vial) 4 mg IV NOW STA Stop: 02/08/23 12:26 Last Admin: 02/08/23 12:42 Dose: 4 mg Documented By: MILY Ondansetron HCl (Ondansetron Inj 2 Mg/Ml 2 Ml Vial) 4 mg IV NOW STA Stop: 02/08/23 12:26 Last Admin: 02/08/23 12:42 Dose: 4 mg Documented By: MILY Imaging Data Radiologist's Impression: Chest CTA 02/08/23 12:27 CT ANGIOGRAPHY OF THE CHEST, PULMONARY EMBOLUS PROTOCOL CLINICAL HISTORY: Chest pain. COMPARISON STUDY: Chest radiograph November 14, 2018. Chest CT November 27, 2005. TECHNIQUE: Following IV administration of 114 mL of Optiray, helical axial images of the chest were obtained utilizing the pulmonary embolus protocol. Maximal intensity projections and sagittal and coronal reformats were viewed on an independent 3D workstation. IV contrast was administered without complication. Automated exposure control was utilized for the study. A dose lowering technique was utilized adhering to the principles of ALARA. FINDINGS: No pulmonary emboli are identified. There is extensive plaque of the thoracic aorta. There is no thoracic aortic dissection. There is mild dilatation of the central pulmonary arteries. Moderate cardiomegaly is noted. There is moderate coronary artery calcification. There is no pericardial effusion. Mu ltinodular thyroid gland is again noted. This was shown on CT of November 27, 2005. A few mildly enlarged mediastinal lymph nodes are similar to prior chest CT. Index precarinal node on image 100 of 267 measures 2 x 1.4 cm. Small right and trace left pleural effusions are present. There is no pneumothorax. There is severe emphysema. No consolidation is identified to suggest pneumonia. Subpleural opacities favor atelectasis. There is mild interlobular septal thickening. Note is made of a spiculated 2.9 x 1.9 cm right upper lobe nodule on image 48 of 267. This is new since prior chest CT. This extends to the pleura. No additional suspicious pulmonary nodules are present. There are no suspicious lesions within the visualized bony thorax. Mild left hydronephrosis with delayed left nephrogram is better depicted on the abdomen and pelvis CT which will be reported separately. A moderate to severe L1 compression fracture is likely chronic. There is a moderate T12 compression fracture which is likely subacute to chronic. Mild associated retropulsion. Additional mild thoracic spine compression deformity is likely chronic. IMPRESSION: 1. No pulmonary emboli identified. 2. Spiculated 2.9 x 1.9 cm right upper lobe nodule. This is suggestive of a primary lung malignancy. Although less likely, an infectious process could appear similar. Pulmonary consultation is recommended for consideration for bronchoscopy. 3. Mildly enlarged mediastinal lymph nodes. These are similar to CT of November 27, 2005 but remain indeterminate and should be assessed on follow-up imaging studies. 4. Severe emphysema. 5. Suspected mild interstitial pulmonary edema. Small right and trace left pleural effusions. 6. Mild left hydronephrosis with delayed left nephrogram better depicted on the CTA of the abdomen and pelvis which will be reported separately. 7. Subacute to chronic T12 compression fracture with mild retropulsion. Several additional old thoracic and lumbar spine compression fractures. ACT 112: Positive. There are findings on this exam that require communication between the performing entity and the patient following Patient Test Result Information Act ([place] Act 112) guidelines. Electronically signed by: Nico Larson M.D. 02/08/2023 2:30 PM Abdomen/Pelvis CTA 02/08/23 12:54 CTA OF THE ABDOMEN AND PELVIS CLINICAL HISTORY: Abdominal pain. COMPARISON STUDY: CT of the abdomen and pelvis November 08, 2007. TECHNIQUE: Helical axial images of the abdomen and pelvis were obtained during arterial phase following intravenous injection of 114 cc of Optiray 320 IV. Sagittal and coronal coronal reconstructions were viewed as well as maximal intensity projections on an independent 3-D workstation. Automated exposure control was utilized for the study. A dose lowering technique was utilized adhering to the principles of ALARA. FINDINGS: Please note that the chest CT will be reported separately. No pneumatosis, free air or portal venous gas is present. Arterial phase images of the liver, spleen, adrenal glands and pancreas are unremarkable. Mild biliary ductal dilatation is likely related to cholecystectomy. There is no right hy dronephrosis. There is mild left hydroureteronephrosis with delayed left nephrogram. There is also mild left perinephric fluid and stranding. No ureteral calculi are present. No obstructing lesion is identified by CT. 5 mm nodular density along anterior superior bladder wall is noted on image 309. There is an indeterminate 1 cm left mid pole renal lesion on image 113 of 390. There is no evidence for a bowel obstruction. The caliber and wall thickness of small and large bowel are normal. There is no lymphadenopathy. Extensive atherosclerotic plaque of the abdominal aorta is noted. The infrarenal abdominal aorta is ectatic, measuring 2.6 cm. Branch vessels are patent within the abdomen. There is mild dilatation of the right common iliac artery, measuring 1.7 cm. There is extensive plaque within the bilateral common iliac, internal iliac and external iliac arteries. There is mild dilatation of the right common femoral artery, measuring 1.2 cm. Severe stenosis of the proximal right superficial femoral artery is noted. There is moderate stenosis of the proximal left superficial femoral artery. Moderate T12 compression fracture is likely subacute to chronic. There is mild retropulsion. There is an old L1 compression fracture. IMPRESSION: 1. Mild left hydroureteronephrosis with delayed left nephrogram and perinephric fluid. No ureteral calculi. The etiology for this dilatation is not clear on this exam and could be due to a recently passed calculus or an occult stricture/lesion. Urology consultation is recommended. 2. Small nodular density along anterior superior bladder bladder wall which could be assessed with cystoscopy. 3. Extensive aortoiliac atherosclerotic plaque. Ectatic infrarenal abdominal aorta. No dissection. Patent branch vessels within the abdomen. Severe stenosis of the right superficial femoral artery and moderate stenosis of the left superficial femoral artery. 4. Indeterminate 1 cm left renal lesion, suboptimally assessed on this exam. ACT 112: Positive. There are findings on this exam that require communication between the performing entity and the patient following Patient Test Result Information Act ([place] Act 112) guidelines. Electronically signed by: Nico Larson M.D. 02/08/2023 2:48 PM Discharge Plan Visit Data Chief Complaint: Dehydration Stated Complaint: DEHYDRATION, URINATING AND VOMITING SINCE YESTERDA ED Provider: Ermias Harris Discharge Problem: Atrial fibrillation with rapid ventricular response, Abdominal pain, Acute dehydration, Acidosis, lactic Patient Disposition: Admitted As Inpatient Discharge Instructions Interventions: ED Discharge Assessment Last Done: 02/08/23 17:38
[2023-02-08] MEDS ORDERED: SODIUM CHLORIDE 0.9% 1000ML 1,000 ML IV ONE (12:25)
[2023-02-08] MEDS ORDERED: MoRPHine SULFATE 4 MG/ML 1 ML CARP\\VIAL IV STA (12:25)
[2023-02-08] MEDS ORDERED: ONDANSETRON INJ 2 MG/ML 2 ML VIAL IV STA (12:25)
[2023-02-08] MEDS ORDERED: PIPERACILLIN/TAZOBACTAM 4.5 GM/120 ML BAG IV ONE (12:25)
[2023-02-08 12:43] LABS: Albumin Globulin Ratio 1.5 (0.9-2); Albumin Level 4.9 gm/dl (3.4-5.0); BUN Creatinine Ratio 15.5 (10-20); Bilirubin,Total 1.4 mg/dl (0.2-1.0); Calcium 10.7 mg/dl (8.6-10.3); Creatinine Clr Calc Pharmacy 39.2 ml/min; Est GFR (African American) 56.5 ml/min; Est GFR (Non-African American) 48.7 ml/min; Globulin 3.2 gm/dl (2.5-4.0); Total Protein 8.1 gm/dl (6.0-8.3)
[2023-02-08 12:45] LABS: Hematocrit (blood only) 56.9 % (37.0-47.0); Hemoglobin 18.6 g/dl (12.0-16.0); Mean Corpuscular Hemoglobin 29.2 pg (25.0-34.0); Mean Corpuscular Hgb Conc 32.7 g/dL (32.0-36.0); Mean Corpuscular Volume 89.2 fL (80.0-100.0); Mean Platelet Volume 9.2 fL (9.4-12.4); Platelet Count 254 K/uL (130-400); RDW Coefficient of Variation 17.7 % (11.5-14.5); RDW Standard Deviation 52.5 fL (36.4-46.3); Red Blood Count 6.38 M/uL (4.20-5.40); White Blood Count 11.24 K/ul (4.8-10.8)
[2023-02-08 13:27] LABS: Thyroid Stimulating Hormone 0.01 uIu/ml (0.300-4.500)
[2023-02-08 13:28] LABS: Basophils # (auto) 0.03 K/uL (0-0.2); Basophils % (auto) 0.3 %; Immature Granulocytes # (auto) 0.04 K/uL (0.01-0.20); Immature Granulocytes % (auto) 0.4 %; Lymphocytes # (auto) 1.39 K/uL (1.2-3.4); Lymphocytes % (auto) 12.4 %; Monocytes # (auto) 0.36 K/uL (0.11-0.59); Monocytes % (auto) 3.2 %; Neutrophils # (auto) 9.42 K/uL (1.40-6.50); Neutrophils % (auto) 83.7 %
[2023-02-08] MEDS ORDERED: IOVERSOL 350 MG 125mL Prefilled Syringe IV ONE (13:48)
[2023-02-08 14:02] LABS: T4 Free Thyroxine 0.77 ng/dl (0.61-1.60)
--- NOTE | 2023-02-08 14:32 | CT Scan Report ---
CT ANGIOGRAPHY OF THE CHEST, PULMONARY EMBOLUS PROTOCOL CLINICAL HISTORY: Chest pain. COMPARISON STUDY: Chest radiograph November 14, 2018. Chest CT November 27, 2005. TECHNIQUE: Following IV administration of 114 mL of Optiray, helical axial images of the chest were o btained utilizing the pulmonary embolus protocol. Maximal intensity projections and sagittal and cor onal reformats were viewed on an independent 3D workstation. IV contrast was administered without co mplication. Automated exposure control was utilized for the study. A dose lowering technique was ut ilized adhering to the principles of ALARA. FINDINGS: No pulmonary emboli are identified. There is extensive plaque of the thoracic aorta. There is no thoracic aortic dissection. There is mild dilatation of the central pulmonary arteries. Modera te cardiomegaly is noted. There is moderate coronary artery calcification. There is no pericardial ef fusion. Multinodular thyroid gland is again noted. This was shown on CT of November 27, 2005. A few mildly enlarged mediastinal lymph nodes are similar to prior chest CT. Index precarinal node on image 100 of 267 measures 2 x 1.4 cm. Small right and trace left pleural effusions are present. There is no pneum othorax. There is severe emphysema. No consolidation is identified to suggest pneumonia. Subpleural o pacities favor atelectasis. There is mild interlobular septal thickening. Note is made of a spiculate d 2.9 x 1.9 cm right upper lobe nodule on image 48 of 267. This is new since prior chest CT. This ext ends to the pleura. No additional suspicious pulmonary nodules are present. There are no suspicious l esions within the visualized bony thorax. Mild left hydronephrosis with delayed left nephrogram is be tter depicted on the abdomen and pelvis CT which will be reported separately. A moderate to severe L1 compression fracture is likely chronic. There is a moderate T12 compression fracture which is likely subacute to chronic. Mild associated retropulsion. Additional mild thoracic spine compression deform ity is likely chronic. IMPRESSION: 1. No pulmonary emboli identified. 2. Spiculated 2.9 x 1.9 cm right upper lobe nodule. This is suggestive of a primary lung malignancy. Although less likely, an infectious process could appear similar. Pulmonary consultation is recommend ed for consideration for bronchoscopy. 3. Mildly enlarged mediastinal lymph nodes. These are similar to CT of November 27, 2005 but remain indeter minate and should be assessed on follow-up imaging studies. 4. Severe emphysema. 5. Suspected mild interstitial pulmonary edema. Small right and trace left pleural effusions. 6. Mild left hydronephrosis with delayed left nephrogram better depicted on the CTA of the abdomen an d pelvis which will be reported separately. 7. Subacute to chronic T12 compression fracture with mild retropulsion. Several additional old thorac ic and lumbar spine compression fractures. ACT 112: Positive. There are findings on this exam that require communication between the performing entity and the patient following Patient Test Result Information Act ([place] Act 112) guidelines. Electronically signed by: Nico Larson M.D. 02/08/2023 2:30 PM
[2023-02-08] MEDS ORDERED: dilTIAZem HCL 125 MG in DEXTROSE 5% 100 ML IV ONE (14:48)
[2023-02-08] MEDS ORDERED: SODIUM CHLORIDE 0.9% 1000ML 500 ML IV ONE ×2 (14:49→20:15)
--- NOTE | 2023-02-08 14:49 | CT Scan Report ---
CTA OF THE ABDOMEN AND PELVIS CLINICAL HISTORY: Abdominal pain. COMPARISON STUDY: CT of the abdomen and pelvis November 08, 2007. TECHNIQUE: Helical axial images of the abdomen and pelvis were obtained during arterial phase followi ng intravenous injection of 114 cc of Optiray 320 IV. Sagittal and coronal coronal reconstructions we re viewed as well as maximal intensity projections on an independent 3-D workstation. Automated expos ure control was utilized for the study. A dose lowering technique was utilized adhering to the princ iples of CAROL. FINDINGS: Please note that the chest CT will be reported separately. No pneumatosis, free air or port al venous gas is present. Arterial phase images of the liver, spleen, adrenal glands and pancreas are unremarkable. Mild biliary ductal dilatation is likely related to cholecystectomy. There is no right hydronephrosis. There is mild left hydroureteronephrosis with delayed left nephrogram. There is also mild left perinephric fluid and stranding. No ureteral calculi are present. No obstructing lesion is identified by CT. 5 mm nodular density along anterior superior bladder wall is noted on image 309. T here is an indeterminate 1 cm left mid pole renal lesion on image 113 of 390. There is no evidence fo r a bowel obstruction. The caliber and wall thickness of small and large bowel are normal. There is n o lymphadenopathy. Extensive atherosclerotic plaque of the abdominal aorta is noted. The infrarenal a bdominal aorta is ectatic, measuring 2.6 cm. Branch vessels are patent within the abdomen. There is m ild dilatation of the right common iliac artery, measuring 1.7 cm. There is extensive plaque within t he bilateral common iliac, internal iliac and external iliac arteries. There is mild dilatation of th e right common femoral artery, measuring 1.2 cm. Severe stenosis of the proximal right superficial fe moral artery is noted. There is moderate stenosis of the proximal left superficial femoral artery. Mo derate T12 compression fracture is likely subacute to chronic. There is mild retropulsion. There is a n old L1 compression fracture. IMPRESSION: 1. Mild left hydroureteronephrosis with delayed left nephrogram and perinephric fluid. No ureteral ca lculi. The etiology for this dilatation is not clear on this exam and could be due to a recently pass ed calculus or an occult stricture/lesion. Urology consultation is recommended. 2. Small nodular density along anterior superior bladder bladder wall which could be assessed with cy stoscopy. 3. Extensive aortoiliac atherosclerotic plaque. Ectatic infrarenal abdominal aorta. No dissection. Pa tent branch vessels within the abdomen. Severe stenosis of the right superficial femoral artery and m oderate stenosis of the left superficial femoral artery. 4. Indeterminate 1 cm left renal lesion, suboptimally assessed on this exam. ACT 112: Positive. There are findings on this exam that require communication between the performing entity and the patient following Patient Test Result Information Act ([place] Act 112) guidelines. Electronically signed by: Nico Larson M.D. 02/08/2023 2:48 PM
--- NOTE | 2023-02-08 15:19 | Cardiology Consultation ---
Date of Consultation February 08, 2023 Assessment & Plan (1) Permanent atrial fibrillation with RVR: (2) Hypertensive urgency: (3) Nausea and vomiting: Plan IMPRESSION: 77 year old female who initially presented with nausea, vomiting, and diarrhea. Hx of persistent atrial fibrillation, now with rapid ventricular rates. Rapid ventricular rates with atrial fibrillation likely driven by acute illness. Patient is markedly hypertensive on presentation. No acute findings on CTA of the chest, abdomen, pelvis. PLAN: Recommend continuation of IV diltiazem as this has slowed her heart rate as well as improved blood pressures. Titrate as appropriate. Recommend restarting home dose metoprolol tartrate 100 mg twice daily. Will hold lisinopril due to GI distress as well as receiving contrast for CTAs. Will reassess renal function in the morning. Given nausea and vomiting as well as markedly elevated blood pressures upon arrival would recommend head CT to rule out acute bleed. Hold Eliquis until results are finalized. Supportive measures recommended for dehydration, will defer to primary service for management. Recommended potassium goal of 4.0 and magnesium goal of 2.0. Case discussed with Dr. Lance. Will monitor. Supervising Physician Co-Signing Physician Notes Patient was seen and personally examined in the emergency room. Complex history as outlined Presented today noting 2 to 3 days history of abdominal pain bloating nausea vomiting and difficulty controlling bowel and bladder. Mild headache no acute neurologic complaints but with chronic peripheral neuropathy. Underlying medi mukesh issues include persistent atrial fibrillation present since 2020 currently with elevated heart rate response. Patient markedly hypertensive on exam today. Recently evaluated and diagnosed with squamous cell carcinoma of the lung. Has underlying hyperthyroidism on chronic suppressive therapy. Suspect atrial fibrillation being driven by underlying illnesses. Has not been been able to take medications times past 24 to 36 hours due to marked nausea. Recommendations as above continue IV diltiazem. Resum metoprolol to tartrate as per home dosing. If heart rate slows would reduce or stop diltiazem. Echocardiogram to be ordered Treat for underlying pathology. Exam today notable for marked rhonchi both aspects of the chest right greater than left, mild abdominal discomfort. Exclude sepsis and pulmonary infection CT notable for normal size cardiac silhouette and no pericardial effusion. Marked vascular disease throughout abdomen Laboratory studies notable for significant hemoglobin of 18.6 Given marked hypertension, headache and underlying pathology would recommend CT scan of head as part of the evaluation Hold lisinopril until renal function assured If blood pressure remains elevated add topical nitrates for additional blood pressure management Eliquis currently on hold no doses in the past day History of Present Illness Reason for Consultation: Paroxysmal atrial fibrillation with RVR Requesting Physician: Preston florentino History of Present Illness 77-year-old female presenting to the [facility] emergency department due to feeling poorly with significant abdominal pain, nausea, vomiting, and diarrhea for several weeks. Also notes intermittent episodes of dark/black stool, denies janis blood. Patient was tachycardic and hypertensive on presentation. She is asymptomatic with her atrial fibrillation denying chest pain or palpitations. Missed some of her medications yesterday due to GI distress. Treated with IV fluid bolus as well as started on diltiazem drip with mild improvement in blood pressure as well as heart rates. IV morphine given for abdominal pain with relief in symptoms. States that over the last year she admits to a poor appetite and lost about 20 pounds. She continues to smoke just under a pack a day which is a significant improvement per family. Lab work showed stable renal function and normal electrolytes. Lactate elevated, initially 6.1>>4.6. CTA of the chest: No pulmonary emboli, severe emphysema. Past medical history Persistent atrial fibrillation, [id number] score of 3, on Eliquis and metoprolol tartrate 100 mg twice daily Hypertension-on lisinopril 40 mg daily Hyperlipidemia, on statin therapy COPD with ongoing tobacco use Non-small cell lung cancer of the right upper lobe, following with pulmonary medicine, cardiothoracic surgery, and hematology/oncology Hyperthyroidism- on methimazole, follows with endocrine History of colon cancer, status postchemotherapy in 2007 Neuropathy Allergies Allergy/AdvReac Type Severity Reaction Status Date / Time prednisone AdvReac Intermediate "GOT REAL Verified 12/02/20 09:15 TENSE" Home Medications Medication Instructions Recorded Confirmed Type aspirin 81 mg tablet,delayed 81 mg PO HS 04/30/18 02/08/23 History release (Aspir-) metoprolol tartrate 100 mg tablet 100 mg PO BID 04/30/18 02/08/23 History omega 7-anh-ovz-fish oil 1,000 mg 1 tab PO QPM 04/30/18 02/08/23 History (120 mg-180 mg) capsule (Fish Oil) vitamins A,C,P-wvtr-arrcmw 2,148 1 tab PO BID 04/30/18 02/08/23 History mcg-113 mg-45 mg-17.4 mg tablet (PreserVision AREDS) atorvastatin 40 mg tablet 40 mg PO QAM 05/26/19 02/08/23 History potassium chloride 10 mEq 20 meq PO QPM 05/26/19 02/08/23 History capsule,extended release vitamin B complex (B 1 tab PO DAILY 12/02/20 02/08/23 History Complex-Vitamin B12 tablet) apixaban 5 mg tablet 5 mg PO BID 02/08/23 02/08/23 History lisinopril 40 mg tablet 40 mg PO DAILY 02/08/23 02/08/23 History methimazole 5 mg tablet 5 mg PO TID 02/08/23 02/08/23 History Patient History Medical History Atrial fibrillation HX OF A-FIB (HOSPITALIZED 10/2018) NO CURRENT PROBLEMS Colon cancer CHEMO TREATMENT (COLON POLYPS REMOVED) History of diverticulitis HTN (hypertension) Hyperlipidemia Hyperthyroidism Multiple thyroid nodules Neuropathy b/l hands and feet Thyroid goiter Vocal cord polyps Surgical History Cyst REMOVED FROM BEHIND EAR H/O: hysterectomy History of tonsillectomy and adenoidectomy History of tooth extraction Hx of appendectomy Hx of colonoscopy with polypectomy (malignant) Family History Father Lung cancer Daughter Breast cancer Grandfather (Maternal) Coronary heart disease, Onset Age: 76 Social History Smoking Status: Former smoker Cigarettes Per Day: 20 CIG DAILY; Second Hand Exposure: Yes; Do You Dip or Chew Tobacco: No; Hx Alcohol Use: No Hx Substance Use: No Preferred Language: Gibraltarian Communication Ability: Effective Chemical Laboratory Scientist Required: No Beliefs That Will Affect Care: None Current Living Situation: Spouse Current Living Situation Comment: AND SISTER Feels Safe at Home: Yes Assistive Devices: Glasses Review of Systems Review of Systems: All systems reviewed & are unremarkable except as noted in HPI & below Physical Exam Constitutional: + ill appearing; no acute distress Eyes: PERRL, conjunctivae normal, anicteric sclerae Neck: normal visual inspection and trachea midline Respiratory: normal respiratory effort and + cough Auscultation: + rhonchi, + wheezes and + bronchovesicular breath sounds; no rales Cardiovascular: Rate/Rhythm: + tachycardic and + irregularly irregular Heart Sounds: normal S1 and normal S2 Extremities: no edema Gastrointestinal (Abdomen): Percussion/Palpation: abdomen soft; abdomen nontender Skin: no rashes, warm and dry Neurologic: PERRL, EOMI, accommodation nl, no face palsy, no dysarthria Psychiatric: A+Ox3, euthymic affect Results & Data Vital Signs (Past 12 Hours) Vital Signs Temp Pulse Resp BP Pulse Ox O2 Del Method 02/08/23 12:30 135 H 35 H 93 02/08/23 12:30 166/133 H 02/08/23 12:00 137 H 26 H 93 02/08/23 12:00 170/135 H 02/08/23 11:34 140 H 19 94 02/08/23 11:34 179/142 H 02/08/23 11:37 125 H 02/08/23 11:23 36.4 C L 126 H 24 178/121 H 96 Room Air Laboratory Results Cardiac Enzymes 02/08/23 Range/Units 11:49 AST 28 (13-39) U/L CBC 02/08/23 Range/Units 11:49 WBC 11.24 H (4.8-10.8) K/ul RBC 6.38 H (4.20-5.40) M/uL Hgb 18.6 H (12.0-16.0) g/dl Hct 56.9 H (37.0-47.0) % Plt Count 254 (130-400) K/uL Neut # (Auto) 9.42 H (1.40-6.50) K/uL Lymph # (Auto) 1.39 (1.2-3.4) K/uL Warrick # (Auto) 0.36 (0.11-0.59) K/uL Eos # (Auto) 0.00 (0-0.50) K/uL Baso # (Auto) 0.03 (0-0.2) K/uL Comprehensive Metabolic Panel 02/08/23 Range/Units 11:49 Sodium 142 (136-145) mmol/L Potassium 5.0 (3.5-5.1) mmol/L Chloride 105 (98-107) mmol/L Carbon Dioxide 23 (21-32) mmol/L BUN 17 (6-23) mg/dl Creatinine 1.10 (0.6-1.2) mg/dl Glucose 162 H (70-99(Fasting)) mg/dl Calcium 10.7 H (8.6-10.3) mg/dl AST 28 (13-39) U/L ALT 22 (7-52) U/L Alkaline Phosphatase 154 H (34-104) U/L Total Protein 8.1 (6.0-8.3) gm/dl Albumin 4.9 (3.4-5.0) gm/dl Intake and Output 02/08/23 02/08/23 02/08/23 06:59 14:59 22:59 Intake Total 1120 / 1120 Balance 1120 / 1120 Intake: IV 1120 / 1120 Piperacillin/Tazobactam 4.5 gm 120 / 120 In 120 ml @ 240 mls/hr IV NOW ONE Rx#:[id number] Sodium Chloride 0.9% 1000ML 1, 1000 / 1000 000 ml @ 999 mls/hr IV .Q1H1M ONE Rx#:[id number] Other: Weight 61.2 kg Weight Measurement Method Built in [facility] Patient Weight 02/09/23 06:59 Weight 61.2 kg
--- NOTE | 2023-02-08 15:21 | History & Physical Report ---
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 Permanent atrial fibrillation with RVR secondary to underlying illness Lactic acidosis Nausea, vomiting and left-sided abdominal pain Symptoms of cystitis Admit to PCU Patient appears resuscitated although still is tachycardic and repeat lactic acid is 4.6, continuing to trend down to 3 Likely in setting of dehydration due to GI illness along with A-fib will give additional 500ml IVF bolus due to LA trending up from 3.0 -> 3.6, then resume NSS 100cc/hr Repeat lactic acid Patient currently on diltiazem drip, will continue for now and wean down as able Resume metoprolol tartrate 100 mg twice daily Continue Eliquis [address] a/p: Revealed left hydroureteronephrosis but no evidence of stone Patient does report left-sided flank pain that radiates around left side with associated nausea and vomiting. The pain has since resolved so wonder if she possibly did pass a stone Obtain urinalysis consult urology Blood cultures pending Empirically treat with Rocephin 2 g daily for now (pt recently tx with oral bactrim for kleb UTI pansensitive, pt asymptomatic at the time) HTN urgency pt bp significantly elevated in ED, likely 2/2 pain, afib and missed meds improved with IV morphine and IV diltiazem resume home metoprolol but hold lisinopril for now given dehydration obtain CT head given HTN, will hold eliquis until this results Dehydration 2/2 vomiting pt with elevated h/h , baseline 16 hemoconcentrated continue IVF, lactate trending down Hypoxia CTA chest - no PE, spiculated RUL nodule noted which is known to be nsclc, severe emphysema, suspect mild pulm edema with trace b/l pleural effusion likely in setting of afib with RVR continue O2 supplementation like to resolve once underlying illness improves and HR improves NSCLC, RUL hx of colon ca MGUS recent biopsy to establish with CT surgery next week follows [facility], to f/u with them regarding tx as well Abnormal CTA Abd/Pelvis . Mild left hydroureteronephrosis with delayed left nephrogram and perinephric fluid. No ureteral calculi. The etiology for this dilatation is not clear on this exam and could be due to a recently passed calculus or an occult stricture/lesion. Urology consultation is recommended. 2. Small nodular density along anterior superior bladder bladder wall which could be assessed with cystoscopy. 3. Extensive aortoiliac atherosclerotic plaque. Ectatic infrarenal abdominal aorta. No dissection. Patent branch vessels within the abdomen. Severe stenosis of the right superficial femoral artery and moderate stenosis of the left superficial femoral artery. 4. Indeterminate 1 cm left renal lesion, suboptimally assessed on this exam. Urology will be consulted Pt with severe stenosis of right SFA and mod stenosis of L SFA, will need OP referral to vasc she is on asa and statin Hx of T2DM last a1c 6.2 10/23/22 bsg 162 in ED will follow blood sugar and add correction factor novolog only Tobacco abuse nicotine patch Dvt ppx: Eliquis DNR/DNI PCP: Shashi Pt was seen and examined in collaboration with Dr. Bradford, please see addendum History of Present Illness Chief Complaint: Ill feeling x 1-2 days. 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 Of significance patient follows with [facility] in relation to prior history of colon cancer. She is also currently following with pulmonology in regards to work-up for right upper lobe lung nodule. On 01/[address]-guided biopsy wh ich was consistent with non-small cell carcinoma/squamous cell carcinoma. Patient states her symptoms started approximately 1 to 2 days ago. She noted some generalized abdominal discomfort and specifically left-sided flank pain that radiated through to abdomen. She felt it was generally mild at the time. She also complains of dysuria and increased urgency and frequency with urination for the past 2 days. Approximately 1 week ago treated for urinary tract infection with Bactrim. She did complete antibiotic course. Earlier this morning she developed vomiting and had approximately 8-9 episodes, nausea and persistent left-sided flank pain and left-sided abdominal pain. She also reports being short of breath. Due to the symptoms she reported to ED. She denied feeling feverish, chills or sweats. She denied lightheadedness, dizziness, chest pain, cough, URI symptoms, sick contacts, hematuria, melena or hematochezia. Approximately 1 month ago she was dealing with diarrhea.She has b een compliant with medications except for when she had to hold Eliquis for recent biopsy and has not been able to take medications for the last 1 to 2 days. Patient was markedly hypertensive upon arrival. Lab work notable for significant lactic acidosis with lactic acid greater than 6, H&H elevated 18.6 and 56.9, to BC 11.24, BUN 17, creatinine 1.10, glucose 162, total bilirubin 1.4, alk phos 154, TSH low at 0.010 with a free T4 normal at 0.77. She underwent CTA of chest which was negative for PE, did reveal right upper lobe lung nodule which is already known to be squamous cell carcinoma, severe emphysema, suspected mild interstitial pulmonary edema, mild left hydroureteronephrosis noted on CT abdomen pelvis. In ED she was appropriately resuscitated with 1.5 L of IV fluid. Allergies Allergy/AdvReac Type Severity Reaction Status Date / Time prednisone AdvReac Intermediate "GOT REAL Verified 12/02/20 09:15 TENSE" Home Medications Medication Instructions Recorded Confirmed Type aspirin 81 mg tablet,delayed 81 mg PO HS 04/30/18 02/08/23 History release (Aspir-) metoprolol tartrate 100 mg tablet 100 mg PO BID 04/30/18 02/08/23 History omega 1-kas-nwm-fish oil 1,000 mg 1 tab PO QPM 04/30/18 02/08/23 History (120 mg-180 mg) capsule (Fish Oil) vitamins A,C,I-aikr-juvomx 2,148 1 tab PO BID 04/30/18 02/08/23 History mcg-113 mg-45 mg-17.4 mg tablet (PreserVision AREDS) atorvastatin 40 mg tablet 40 mg PO QAM 05/26/19 02/08/23 History potassium chloride 10 mEq 20 meq PO QPM 05/26/19 02/08/23 History capsule,extended release vitamin B complex (B 1 tab PO DAILY 12/02/20 02/08/23 History Complex-Vitamin B12 tablet) apixaban 5 mg tablet 5 mg PO BID 02/08/23 02/08/23 History lisinopril 40 mg tablet 40 mg PO DAILY 02/08/23 02/08/23 History methimazole 5 mg tablet 5 mg PO TID 02/08/23 02/08/23 History Past Med/Surg History Medical History Atrial fibrillation HX OF A-FIB (HOSPITALIZED 10/2018) NO CURRENT PROBLEMS Colon cancer CHEMO TREATMENT (COLON POLYPS REMOVED) History of diverticulitis HTN (hypertension) Hyperlipidemia Hyperthyroidism Multiple thyroid nodules Neuropathy b/l hands and feet Thyroid goiter Vocal cord polyps Surgical History Cyst REMOVED FROM BEHIND EAR H/O: hysterectomy History of tonsillectomy and adenoidectomy History of tooth extraction Hx of appendectomy Hx of colonoscopy with polypectomy (malignant) Family History Father Lung cancer Daughter Breast cancer Grandfather (Maternal) Coronary heart disease, Onset Age: 76 Social History Smoking Status: Current every day smoker Cigarettes Per Day: 20 CIG DAILY; Second Hand Exposure: Yes; Do You Dip or Chew Tobacco: No; Hx Alcohol Use: No Hx Substance Use: No Preferred Language: Tuvaluan Communication Ability: Effective [employer] Car Driver Required: No Beliefs That Will Affect Care: None Current Living Situation: Spouse and Family Current Living Situation Comment: sister and Other Information That Helps Us Care for You: No Feels Safe at Home: Yes Safety Concerns: Feels Safe At This Time Assistive Devices: None Assistive Devices Comment: cane and walker at home Review of Systems Review of Systems: All systems reviewed & are unremarkable except as noted in HPI & below Physical Exam Physical Exam: Constitutional: WD/WN, ill appearing, elderly, F vitals as above, NAD, sitting up in bed, pleasant, conversing easily Head: Normocephalic, Atraumatic Eyes: PERRL, conjunctivae normal, anicteric sclerae ENMT: external ear and nose normal, oropharynx normal Neck: trachea midline, no thyromegaly normal visual inspection Respiratory: normal respiratory effort, +rhonchi, no wheeze, rales, Normal insp/exp effort, no accessory muscle use Cardiovascular: IRR/IRR, no murmur, no edema Vessels: no JVD or carotid bruit Chest: normal inspection of chest Abdomen: normal bowel sounds, soft, nontender, no hepatosplenomegaly Musculoskeletal: no cyanosis or clubbing, extremities motor strength 5/5 Skin: no rashes, warm and dry normal turgor Neurologic: PERRL, EOMI, accommodation nl, no face palsy, no dysarthria CN's II-XI intact bilaterally and moves all extremities Psychiatric: A+Ox3, euthymic affect Lymphatic: no cervical or axillary lymphadenopathy : deferred Results & Data Results & Data Vital Signs (Past 12 Hours) Vital Signs Temp Pulse Resp BP Pulse Ox O2 Del Method 02/08/23 12:30 135 H 35 H 93 02/08/23 12:30 166/133 H 02/08/23 12:00 137 H 26 H 93 02/08/23 12:00 170/135 H 02/08/23 11:34 140 H 19 94 02/08/23 11:34 179/142 H 02/08/23 11:37 125 H 02/08/23 11:23 36.4 C L 126 H 24 178/121 H 96 Room Air Diagnostic Findings Chest CTA 02/08/23 12:27 CT ANGIOGRAPHY OF THE CHEST, PULMONARY EMBOLUS PROTOCOL CLINICAL HISTORY: Chest pain. COMPARISON STUDY: Chest radiograph November 14, 2018. Chest CT November 27, 2005. TECHNIQUE: Following IV administration of 114 mL of Optiray, helical axial images of the chest were obtained utilizing the pulmonary embolus protocol. Maximal intensity projections and sagittal and coronal reformats were viewed on an independent 3D workstation. IV contrast was administered without complication. Automated exposure control was utilized for the study. A dose lowering technique was utilized adhering to the principles of ALARA. FINDINGS: No pulmonary emboli are identified. There is extensive plaque of the thoracic aorta. There is no thoracic aortic dissection. There is mild dilatation of the central pulmonary arteries. Moderate cardiomegaly is noted. There is moderate coronary artery calcification. There is no pericardial effusion. Multinodular thyroid gland is again noted. This was shown on CT of November 27, 2005. A few mildly enlarged mediastinal lymph nodes are similar to prior chest CT. Index precarinal node on image 100 of 267 measures 2 x 1.4 cm. Small right and trace left pleural effusions are present. There is no pneumothorax. There is severe emphysema. No consolidation is identified to suggest pneumonia. Subpleural opacities favor atelectasis. There is mild interlobular septal thickening. Note is made of a spiculated 2.9 x 1.9 cm right upper lobe nodule on image 48 of 267. This is new since prior chest CT. This extends to the pleura. No additional suspicious pulmonary nodules are present. There are no suspicious lesions within the visualized bony thorax. Mild left hydronephrosis with delayed left nephrogram is better depicted on the abdomen and pelvis CT which will be reported separately. A moderate to severe L1 compression fracture is likely chronic. There is a moderate T12 compression fracture which is likely subacute to chronic. Mild associated retropulsion. Additional mild thoracic spine compression deformity is likely chronic. IMPRESSION: 1. No pulmonary emboli identified. 2. Spiculated 2.9 x 1.9 cm right upper lobe nodule. This is suggestive of a primary lung malignancy. Although less likely, an infectious process could appear similar. Pulmonary consultation is recommended for consideration for bronchoscopy. 3. Mildly enlarged mediastinal lymph nodes. These are similar to CT of November 27, 2005 but remain indeterminate and should be assessed on follow-up imaging studies. 4. Severe emphysema. 5. Suspected mild interstitial pulmonary edema. Small right and trace left pleural effusions. 6. Mild left hydronephrosis with delayed left nephrogram better depicted on the CTA of the abdomen and pelvis which will be reported separately. 7. Subacute to chronic T12 compression fracture with mild retropulsion. Several additional old thoracic and lumbar spine compression fractures. ACT 112: Positive. There are findings on this exam that require communication between the performing entity and the patient following Patient Test Result Information Act ([place] Act 112) guidelines. Electronically signed by: Nico Larson M.D. 02/08/2023 2:30 PM Abdomen/Pelvis CTA 02/08/23 12:54 CTA OF THE ABDOMEN AND PELVIS CLINICAL HISTORY: Abdominal pain. COMPARISON STUDY: CT of the abdomen and pelvis November 08, 2007. TECHNIQUE: Helical axial images of the abdomen and pelvis were obtained during arterial phase following intravenous injection of 114 cc of Optiray 320 IV. Sagittal and coronal coronal reconstructions were viewed as well as maximal intensity projections on an independent 3-D workstation. Automated exposure control was utilized for the study. A dose lowering technique was utilized adhering to the principles of ALARA. FINDINGS: Please note that the chest CT will be reported separately. No p neumatosis, free air or portal venous gas is present. Arterial phase images of the liver, spleen, adrenal glands and pancreas are unremarkable. Mild biliary ductal dilatation is likely related to cholecystectomy. There is no right hydronephrosis. There is mild left hydroureteronephrosis with delayed left nephrogram. There is also mild left perinephric fluid and stranding. No ureteral calculi are present. No obstructing lesion is identified by CT. 5 mm nodular density along anterior superior bladder wall is noted on image 309. There is an indeterminate 1 cm left mid pole renal lesion on image 113 of 390. There is no evidence for a bowel obstruction. The caliber and wall thickness of small and large bowel are normal. There is no lymphadenopathy. Extensive atherosclerotic plaque of the abdominal aorta is noted. The infrarenal abdominal aorta is ectatic, measuring 2.6 cm. Branch vessels are patent within the abdomen. There is mild dilatation of the right common iliac artery, measuring 1.7 cm. There is extensive plaque within the bilateral common iliac, internal iliac and external iliac arteries. There is mild dilatation of the right common femoral artery, measuring 1.2 cm. Severe stenosis of the proximal right superficial femoral artery is noted. There is moderate stenosis of the proximal left superficial femoral artery. Moderate T12 compression fracture is likely subacute to chronic. There is mild retropulsion. There is an old L1 compression fracture. IMPRESSION: 1. Mild left hydroureteronephrosis with delayed left nephrogram and perinephric fluid. No ureteral calculi. The etiology for this dilatation is not clear on this exam and could be due to a recently passed calculus or an occult stricture/lesion. Urology consultation is recommended. 2. Small nodular density along anterior superior bladder bladder wall which could be assessed with cystoscopy. 3. Extensive aortoiliac atherosclerotic plaque. Ectatic infrarenal abdominal aorta. No dissection. Patent branch vessels within the abdomen. Severe stenosis of the right superficial femoral artery and moderate stenosis of the left superficial femoral artery. 4. Indeterminate 1 cm left renal lesion, suboptimally assessed on this exam. ACT 112: Positive. There are findings on this exam that require communication between the performing entity and the patient following Patient Test Result Information Act ([place] Act 112) guidelines. Electronically signed by: Nico Larson M.D. 02/08/2023 2:48 PM Medications Administered Medication List Diltiazem HCl 125 mg/ Dextrose 125 mls @ 5 mls/hr IV .Q24H ONE; Protocol Stop: 02/09/23 14:47 Last Admin: 02/08/23 15:21 Dose: 5 mg/hr, 5 mls/hr Documented By: DELLA Co-signed By: BRANDIN Discontinued Medications Sodium Chloride (Nss 1000ml) 1,000 mls @ 999 mls/hr IV .Q1H1M ONE Stop: 02/08/23 13:25 Last Infusion: 02/08/23 14:29 Dose: 0 mls/hr Documented By: Admin: 02/08/23 12:42 Dose: 999 mls/hr Documented By: MILY Piperacillin Sod/Tazobactam Sod (Zosyn) 4.5 gm in 120 mls @ 240 mls/hr IV NOW ONE Stop: 02/08/23 12:54 Last Infusion: 02/08/23 13:14 Dose: 0 mls/hr Documented By: Admin: 02/08/23 12:43 Dose: 240 mls/hr Documented By: MILY Sodium Chloride (Nss 1000ml) 500 mls @ 999 mls/hr IV .Q31M ONE Stop: 02/08/23 15:19 Last Admin: 02/08/23 15:20 Dose: 999 mls/hr Documented By: DELLA Ioversol (Ioversol 350 Mg 125ml Prefilled Syringe) 114 ml IV ONCE ONE Stop: 02/08/23 13:49 Last Admin: 02/08/23 13:48 Dose: 114 ml Documented By: SUSAN Morphine Sulfate (Morphine Sulfate 4 Mg/Ml 1 Ml Carp\\Vial) 4 mg IV NOW STA Stop: 02/08/23 12:26 Last Admin: 02/08/23 12:42 Dose: 4 mg Documented By: MILY Ondansetron HCl (Ondansetron Inj 2 Mg/Ml 2 Ml Vial) 4 mg IV NOW STA Stop: 02/08/23 12:26 Last Admin: 02/08/23 12:42 Dose: 4 mg Documented By: RSL ECG Rate (beats per minute): 141 Rhythm: atrial fibrillation Additional Comments: Afib with RVR, Lateral st t wave changes COVID-19 Results Results COVID-19 Adm Lab Results: RBC 5.29 M/uL (4.20-5.40) 02/09/23 WBC 12.13 K/ul (4.8-10.8) H 02/09/23 Hgb 16.3 g/dl (12.0-16.0) H 02/09/23 Hct 47.6 % (37.0-47.0) H 02/09/23 Plt Count 196 K/uL (130-400) 02/09/23 Neutrophils (%) (Auto) 87.1 % 02/09/23 Lymphocytes (%) (Auto) 10.0 % 02/09/23 Monocytes # (Auto) 0.28 K/uL (0.11-0.59) 02/09/23 Eosinophils # (Auto) 0.01 K/uL (0-0.50) 02/09/23 Immature Granulocyte % (Auto) 0.3 % 02/09/23 Neutrophils # (Auto) 10.56 K/uL (1.40-6.50) H 02/09/23 Lymphocytes # (Auto) 1.21 K/uL (1.2-3.4) 02/09/23 Monocytes # (Auto) 0.28 K/uL (0.11-0.59) 02/09/23 Eosinophils # (Auto) 0.01 K/uL (0-0.50) 02/09/23 Basophils # (Auto) 0.03 K/uL (0-0.2) 02/09/23 Immature Granulocyte # (Auto) 0.04 K/uL (0.01-0.20) 3 Na 140 mmol/L (136-145) 02/09/23 K 4.7 mmol/L (3.5-5.1) 02/09/23 Cl 112 mmol/L (98-107) H 02/09/23 CO2 22 mmol/L (21-32) 02/09/23 Anion Gap 6 (3-11) 02/09/23 BUN 16 mg/dl (6-23) 02/09/23 Creatinine 0.82 mg/dl (0.6-1.2) 02/09/23 BUN/Creatinine Ratio 19.5 (10-20) 02/09/23 Glucose Level 114 mg/dl (70-99(Fasting)) H 02/09/23 Ca 8.5 mg/dl (8.6-10.3) L 02/09/23 Total Bilirubin 0.9 mg/dl (0.2-1.0) 02/09/23 AST/SGOT 23 U/L (13-39) 02/09/23 ALT/SGPT 18 U/L (7-52) 02/09/23 Alkaline Phosphatase 106 U/L (34-104) H 02/09/23 Total Protein 5.9 gm/dl (6.0-8.3) L 02/09/23 Albumin 3.5 gm/dl (3.4-5.0) 02/09/23 Globulin 2.4 gm/dl (2.5-4.0) L 02/09/23 Albumin/Globulin Ratio 1.5 (0.9-2) 02/09/23 Procalcitonin < 0.05 ng/ml (0-0.5) 02/08/23 SARS-CoV-2, RNA, NAAT NEGATIVE (NEGATIVE) 02/08/23 Chest X-Ray 02/09/23 Code Status & VTE Plan Code Status DNR/DNI VTE Prophylaxis Plan VTE Prophylaxis will be ordered: Yes Supervising Physician Co-Signing Physician Notes I have seen and examined the patient and have discussed the case with the provider above. I agree with the assessment and plan as stated. 77 yo female smoker with known afib presents with vomiting and acute shortness sidney breath. She also reported UTI symptoms and was found to have concerns for a UTI in her labwork. CXR revealed pulmonary edema and pleural effusions, however, she was hemoconcentrated, hypovolemic on exam, with calcium elevated, etc. All suggestive of dehydration. She also has hyperthyroidism and takes methimazole. Endocrinology note has questioned her compliance with her medications. TSH is low today. She was given IVF cautiously on monitor. Heart rate was elevated in the ER from 130-150 and she was placed on diltiazem. CT a/p with mild left hydronephrosis and there was some left flank pain. No h/o kidney stones, however, this is another possible cause. Heart rate improved but lactate remained elevated. Additional IVF were given. She was placed on broad spectrum antibiotics. Cardiology consulted. Consult Urology based on additional findings of bladder wall. Agree the hypoxia is from the additional fluid on the lungs in the setting of emphysema. She was notably just diagnosed with SCLC after a biopsy of a lung nodule. Those results are not currently available to confirm.Sanchez,
[2023-02-08] MEDS ORDERED: METOPROLOL TARTRATE 100 MG TAB PO STA (15:54)
[2023-02-08] MEDS ORDERED: LACTATED RINGER'S 1,000 ML IV SCH (16:15)
--- NOTE | 2023-02-08 17:01 | Ultrasound Report ---
ULTRASOUND BILATERAL LOWER EXTREMITY VENOUS CLINICAL HISTORY: Leg pain and swelling. COMPARISON STUDY: Left lower extremity venous ultrasound dated 02/10/2021 TECHNIQUE: Real-time, grayscale, and color Doppler sonography of the deep veins of the right and left lower extremity was performed from the inguinal crease to the calf. Compression and augmentation wer e utilized. FINDINGS: There is no sonographic evidence of deep venous thrombosis identified in the right or left lower extremity. The common femoral, superficial femoral, and popliteal veins are patent and normally compressible bilaterally. The greater saphenous vein and the profunda femoris vein at the junction w ith the common femoral vein are clear in both legs. The visualized calf veins are patent bilaterally. IMPRESSION: There is no sonographic evidence of deep venous thrombosis identified in the right or lef t lower extremity. ACT 112: Negative or not required by law. Electronically signed by: Andre Kwok M.D. 02/08/2023 4:59 PM
[2023-02-08 17:12] LABS: Appearance Urine Clear (Clear); Bacteria Urine Automated Negative (Negative); Bilirubin Urine Negative (Negative); Blood Urine 1+ (Negative); Color Urine Yellow; Epithelial Cell Urine Auto >30 /lpf (0-5); Glucose Urine UA Negative (Negative); Ketones Urine Negative (Negative); Leukocyte Esterase Urine 1+ (Negative); Nitrite Urine Negative (Negative); Protein Urine 2+ (Negative); Specific Gravity Urine > 1.045 (1.000-1.030); Urobilinogen Urine Negative (Negative)
--- NOTE | 2023-02-08 17:58 | CT Scan Report ---
CT OF THE HEAD WITHOUT CONTRAST CLINICAL HISTORY: Hypertension, on eliquis. COMPARISON STUDY: Head CT November 14, 2018. CT DOSE: 625.80 mGy.cm TECHNIQUE: Helical axial images of the head were obtained without IV contrast. Automated exposure con trol was utilized for the study. A dose lowering technique was utilized adhering to the principles o f ALARA. FINDINGS: Incidental note is made of intravascular contrast from recent contrast-enhanced CT. White m atter hypodensity suggests small vessel disease. No acute intracranial hemorrhage, midline shift or m ass effect is present. The ventricular system is unremarkable. The basal cisterns are patent. No extr a-axial collections are present. There are no findings to suggest acute dural sinus thrombosis or acu te territorial infarct. No significant calvarial abnormalities are present. 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 IMPRESSION: No acute intracranial findings. ACT 112: Negative or not required by law. Electronically signed by: Nico Larson M.D. 02/08/2023 5:57 PM
[2023-02-08] MEDS ORDERED: GLUCAGON FOR INJ 1 MG VIAL SQ PRN (18:19)
[2023-02-08] MEDS ORDERED: POLYETHYLENE (MIRALAX) 17 GM PACK PO PRN (18:19)
[2023-02-08] MEDS ORDERED: DEXTROSE 50% 50 ML SYRINGE IV PRN (18:19)
[2023-02-08] MEDS ORDERED: ONDANSETRON INJ 2 MG/ML 2 ML VIAL IV PRN (18:19)
[2023-02-08] MEDS ORDERED: GLUCOSE 40% GEL 15 GM TUBE PO PRN (18:19)
[2023-02-08] MEDS ORDERED: GLUCOSE 10 TAB/TUBE PO PRN (18:19)
[2023-02-08] MEDS ORDERED: CARBOHYDRATES FOR HYPOGLYCEMIA PO PRN (18:19)
[2023-02-08] MEDS ORDERED: ACETAMINOPHEN 325 MG TAB PO PRN (18:19)
[2023-02-08] MEDS: cefTRIAXone SODIUM 2,000 MG in DEXTROSE 5% 50 ML IV SCH (19:52)
[2023-02-08] MEDS: NICOTINE 21 MG/24 HR TDSY TD SCH (19:54)
[2023-02-08] MEDS: METOPROLOL TARTRATE 100 MG TAB PO SCH (19:56)
[2023-02-08] MEDS: ASPIRIN 81 MG ECTAB PO SCH (19:57)
[2023-02-08] MEDS: methIMAzole 5 MG TABLET PO SCH (19:57)
[2023-02-08] MEDS: POTASSIUM CHLORIDE CRTAB 20 MEQ TABCR PO SCH (19:57)
[2023-02-08] MEDS: OMEGA-3 (PURIFIED FISH OIL) 1 GM CAP PO SCH (19:57)
[2023-02-08] MEDS: APIXABAN 5 MG TABLET PO SCH (20:01)
--- NOTE | 2023-02-08 20:18 | Urology Consultation ---
I have discussed Ms. Donovan case with Isauro Wolf PA-C and agree with the above documentation. Hydronephrosis could be related to recently passed stone, however in the absence of focal obstruction on imaging, she does not require stent placement or other intervention from urology at this time. -Prasad Venegas MD. Date of Consultation February 08, 2023 Assessment & Plan (1) Hydronephrosis: The patient has been admitted on the hospitalist service. She has been treated for lactic acidosis that was felt to be secondary to nausea, vomiting, and left- sided abdominal pain. She is also being treated for hypertensive urgency. The patient is being empirically treated with Rocephin The cause of patient's hydronephrosis is not entirely clear. It is possible the patient may have passed a kidney stone. It is also possible the patient may have some underlying ureteral lesion or ureteral stricture. At the present time the patient is normotensive with only a slight tachycardia. Entheses her tachycardia has improved since admission). She has been afebrile since admission. She is only noted to have a slight leukocytosis and does not have acute kidney injury. Therefore feel an urgent urologic procedure is not required at this time. We will continue to monitor the patient while she is in the hospital. History of Present Illness Reason for Consultation: Left hydronephrosis Attending Physician: Mary Anne Bradford, History of Present Illness This is a 77-year-old female who was admitted to [facility] earlier today secondary to nausea and vomiting along with abdominal pain and shortness of breath that is been going on for approximately 24 hours. Patient notes that she had some left-sided flank pain with some slight radiation to her abdomen. She felt feverish and she also reported some intermittent dysuria without hematuria. Patient has had associated nausea and vomiting. She has never had kidney stones in the past and since this pain began she has not passed any kidney stones. The patient does note that since admission to the hospital her pain is completely resolved. Since admission to the hospital the patient has had labs and imaging which independent reviewed. A CT scan of the chest showed the patient had a spiculated right upper lobe nodule along with enlarged mediastinal lymph nodes. CT scan of the abdomen pelvis was performed that showed patient had mild left hydro ureteral nephrosis with a delayed nephrogram and some perinephric fluid. No kidney stones were noted. The interpreting radiologist could not rule out an occult stricture or lesion of the ureter. The patient was also noted to have an indeterminant 1 cm left renal lesion. A lower extremity venous Doppler was performed of the left leg which was negative for DVT. Patient also had a CT scan of the head that showed no acute intracranial findings. Labs include a CBC her white blood cell count was 11.2. Hemoglobin and hematocrit were 18.6 and 56.9. Platelet count was normal. Chemistry profile showed sodium and potassium along with her BUN and creatinine were normal. Lactic acid level at time of admission was elevated at 6.1. This has improved to 3.6 since admission. A urinalysis was performed that was negative for nitrites but did show 1+ leukocyte Estrace and 10-30 white blood cells per high-power field. There is no bacteria on this study. A COVID test was noted be negative. At the time of my interview the patient noted that her left flank pain is completely resolved and she was in no distress at the time of my interview. Allergies Allergy/AdvReac Type Severity Reaction Status Date / Time prednisone AdvReac Intermediate "GOT REAL Verified 12/02/20 09:15 TENSE" Home Medications Medication Instructions Recorded Confirmed Type aspirin 81 mg tablet,delayed 81 mg PO HS 04/30/18 02/08/23 History release (Aspir-) metoprolol tartrate 100 mg tablet 100 mg PO BID 04/30/18 02/08/23 History omega 6-awr-zyn-fish oil 1,000 mg 1 tab PO QPM 04/30/18 02/08/23 History (120 mg-180 mg) capsule (Fish Oil) vitamins A,C,Z-ktam-rcraao 2,148 1 tab PO BID 04/30/18 02/08/23 History mcg-113 mg-45 mg-17.4 mg tablet (PreserVision AREDS) atorvastatin 40 mg tablet 40 mg PO QAM 05/26/19 02/08/23 History potassium chloride 10 mEq 20 meq PO QPM 05/26/19 02/08/23 History capsule,extended release vitamin B complex (B 1 tab PO DAILY 12/02/20 02/08/23 History Complex-Vitamin B12 tablet) apixaban 5 mg tablet 5 mg PO BID 02/08/23 02/08/23 History lisinopril 40 mg tablet 40 mg PO DAILY 02/08/23 02/08/23 History methimazole 5 mg tablet 5 mg PO TID 02/08/23 02/08/23 History Patient History Medical History Atrial fibrillation HX OF A-FIB (HOSPITALIZED 10/2018) NO CURRENT PROBLEMS Colon cancer CHEMO TREATMENT (COLON POLYPS REMOVED) History of diverticulitis HTN (hypertension) Hyperlipidemia Hyperthyroidism Multiple thyroid nodules Neuropathy b/l hands and feet Thyroid goiter Vocal cord polyps Surgical History Cyst REMOVED FROM BEHIND EAR H/O: hysterectomy History of tonsillectomy and adenoidectomy History of tooth extraction Hx of appendectomy Hx of colonoscopy with polypectomy (malignant) Family History Father Lung cancer Daughter Breast cancer Grandfather (Maternal) Coronary heart disease, Onset Age: 76 Social History Smoking Status: Current every day smoker Cigarettes Per Day: 20 CIG DAILY; Second Hand Exposure: Yes; Do You Dip or Chew Tobacco: No; Hx Alcohol Use: No Hx Substance Use: No Preferred Language: Yakut Communication Ability: Effective [employer] Required: No Beliefs That Will Affect Care: None Current Living Situation: Spouse and Family Current Living Situation Comment: sister and Other Information That Helps Us Care for You: No Feels Safe at Home: Yes Safety Concerns: Feels Safe At This Time Assistive Devices: Glasses, Walker and Wheelchair Assistive Devices Comment: cane and walker at home Review of Systems Constitutional: + fever (Subjective); no chills Ear, Nose, Mouth, Throat: no hearing loss Respiratory: + cough and + dyspnea Cardiovascular: no chest pain Gastrointestinal: + abdominal pain (Radiating from left flank), + nausea and + vomiting Genitourinary: as per Subjective / HPI Musculoskeletal: + back pain (Left flank) Integumentary: no rash Neurologic: no localized weakness Physical Exam Constitutional: WD/WN, vitals as above Eyes: no conjunctival abnormality ENMT: Ears: no hearing impairment and no external ear abnormality Mouth: no oropharynx abnormality Neck: trachea midline Respiratory: normal respiratory effort; no respiratory distress and no labored breathing Cardiovascular: Rate/Rhythm: regular rate and regular rhythm Gastrointestinal (Abdomen): Abdomen is soft, nonrigid, nondistended. There is no pain with palpation Musculoskeletal: No calf tenderness Skin: no rashes Neurologic: moves all extremities Psychiatric: A+Ox3, euthymic affect Genitourinary: At the time of my exam there is no CVA tenderness to percussion bilaterally Results & Data Vital Signs (Past 12 Hours) Vital Signs Temp Pulse Pulse Resp BP BP Pulse Ox 02/08/23 19:30 36.5 C 103 H 20 131/82 91 02/08/23 18:10 02/08/23 18:10 36.7 C 120 H 20 124/99 90 02/08/23 17:00 36.4 C L 105 H 20 129/99 93 02/08/23 16:44 130 H 02/08/23 15:21 148 H 18 92 02/08/23 12:30 135 H 35 H 93 02/08/23 12:30 166/133 H 02/08/23 12:00 137 H 26 H 93 02/08/23 12:00 170/135 H 02/08/23 11:34 140 H 19 94 02/08/23 11:34 179/142 H 02/08/23 11:37 125 H 02/08/23 11:23 36.4 C L 126 H 24 178/121 H 96 O2 Del Method O2 Flow Rate 02/08/23 19:30 Nasal Cannula 2 02/08/23 18:10 Nasal Cannula 2 02/08/23 18:10 Nasal Cannula 2 02/08/23 17:00 Nasal Cannula 2 02/08/23 16:44 02/08/23 15:21 Nasal Cannula 2 02/08/23 12:30 02/08/23 12:30 02/08/23 12:00 02/08/23 12:00 02/08/23 11:34 02/08/23 11:34 02/08/23 11:37 02/08/23 11:23 Room Air PG Care Time/CCT Total # of Minutes Spent Total Time Spent with Patient: Total time spent is greater than 50% in coordination of care (as documented) at patient's floor/unit and/or counseling patient: Coding Level of Care Code 56553 INT INP/OBS CARE 3/75MIN Diagnoses Hydronephrosis N13.30
[2023-02-08] MEDS ORDERED: METOPROLOL TARTRATE 100 MG TAB PO SCH (21:00)
[2023-02-08] MEDS ORDERED: SODIUM CHLORIDE 0.9% 1000ML 1,000 ML IV SCH ×2 (21:00)
[2023-02-08] MEDS: INSULIN ASPART PER UNIT CHARGE SC SCH (21:08)
[2023-02-08] MEDS: SODIUM CHLORIDE 0.9% 1000ML 1,000 ML IV SCH (21:25)
[2023-02-09 03:00] LABS: Basophils # (auto) 0.03 K/uL (0-0.2); Basophils % (auto) 0.2 %; Eosinophils # (auto) 0.01 K/uL (0-0.50); Eosinophils % (auto) 0.1 %; Hematocrit (blood only) 47.6 % (37.0-47.0); Hemoglobin 16.3 g/dl (12.0-16.0); Immature Granulocytes # (auto) 0.04 K/uL (0.01-0.20); Immature Granulocytes % (auto) 0.3 %; Lymphocytes # (auto) 1.21 K/uL (1.2-3.4); Mean Corpuscular Hemoglobin 30.8 pg (25.0-34.0); Mean Corpuscular Hgb Conc 34.2 g/dL (32.0-36.0); Mean Platelet Volume 9.3 fL (9.4-12.4); Monocytes # (auto) 0.28 K/uL (0.11-0.59); Monocytes % (auto) 2.3 %; Neutrophils # (auto) 10.56 K/uL (1.40-6.50); Neutrophils % (auto) 87.1 %; Platelet Count 196 K/uL (130-400); RDW Coefficient of Variation 16.4 % (11.5-14.5); RDW Standard Deviation 53.1 fL (36.4-46.3); Red Blood Count 5.29 M/uL (4.20-5.40); White Blood Count 12.13 K/ul (4.8-10.8)
[2023-02-09 03:22] LABS: Albumin Globulin Ratio 1.5 (0.9-2); Albumin Level 3.5 gm/dl (3.4-5.0); BUN Creatinine Ratio 19.5 (10-20); Bilirubin,Total 0.9 mg/dl (0.2-1.0); Calcium 8.5 mg/dl (8.6-10.3); Creatinine Clr Calc Pharmacy 52.5 ml/min; Est GFR (African American) 80.6 ml/min; Est GFR (Non-African American) 69.5 ml/min; Globulin 2.4 gm/dl (2.5-4.0); Magnesium 1.5 mg/dl (1.7-2.4); Potassium 4.7 mmol/L (3.5-5.1); Total Protein 5.9 gm/dl (6.0-8.3)
[2023-02-09] MEDS: MAGNESIUM SULFATE / D5W 1 GM/100 ML BAG IV SCH ×2 (04:37→06:01)
--- NOTE | 2023-02-09 07:23 | Cardiology Progress Note ---
Date of Service February 09, 2023 Assessment & Plan (1) Permanent atrial fibrillation with RVR: (2) Hypertensive urgency: (3) Nausea and vomiting: Plan IMPRESSION: 77 year old female who initially presented with nausea, vomiting, and diarrhea. Hx of persistent atrial fibrillation, now with rapid ventricular rates. Rapid ventricular rates with atrial fibrillation likely driven by acute illness. Patient was markedly hypertensive on presentation. CT of the head negative for acute bleed. CTA of the abdomen and pelvis revealed left hydroureteronephrosis but no evidence of stone. PLAN: Rates remain elevated- Add diltiazem 120 mg daily. Transition metoprolol tartrate to metoprolol succinate 100 mg twice per day. Nausea and vomiting resolved. Renal function stable. BP remain hypertensive- restart home dose lisinopril 40 mg daily. Supportive measures recommended for dehydration, will defer to primary service for management. Recommended potassium goal of 4.0 and magnesium goal of 2.0. Case discussed with Dr. Lance. Will monitor. Admission and Anticipated Discharge Date Admission Date: February 08, 2023 Supervising Physician Co-Signing Physician Notes Patient seen and examined, chart, medications, telemetry reviewed. Full assessment as above. Complex 77-year-old female presented with weakness nausea vomiting and diarrhea. Atrial fibrillation (chronic) elevated with past poor control on fairly high- dose metoprolol blood pressures hypertensive Patient clinically improved today Plan as outlined above change metoprolol to tartrate to metoprolol succinate for better rate control. Add diltiazem CD1 120 mg/day for further rate control and blood pressure control. Given underlying lung disease and heart rate rate slow would consider reduction in metoprolol Continue treat underlying infectious processes Subjective 77-year-old female who presented to [facility] emergency department due to concerns regarding several days of GI distress. Patient carries a history of persistent atrial fibrillation now with rapid ventricular rates. Markedly hypertensive on presentation. Started on IV diltiazem drips with improvement in heart rates and blood pressures. Home dose of metoprolol tartrate 100 mg twice daily restarted. CT of the head negative for acute bleed-Eliquis 5 mg twice daily restarted CTA of the abdomen and pelvis revealed left hydroureteronephrosis but no evidence of stone. Urology consulted. IV antibiotics started. Blood and urine cultures pending. 02/09: Upon entrance into the room patient resting in bed. feeling significantly improved from yesterday. No abdominal pain, nausea or vomiting. No diarrhea. Asymptomic with her AFIB. States that she "always has a high heart rate". No chest pain, palpitations, or worsening shortness of breath. Tele: AFIB 120-140s this am (rates increasing since midnight). Diltazem discontinued over night in favor of IVP Lopressor, received one dose. Labs: Renal function stable. Potassium WNL. Magnesium low, supplemented this am. Lactate returned to normal. Review of Systems Review of Systems: All systems reviewed & are unremarkable except as noted in HPI & below Physical Exam Constitutional: + thin; no acute distress Eyes: PERRL, conjunctivae normal, anicteric sclerae Neck: normal visual inspection and trachea midline Respiratory: normal respiratory effort and + cough Auscultation: + wheezes and + bronchovesicular breath sounds; no rales and no rhonchi Cardiovascular: Rate/Rhythm: + tachycardic and + irregularly irregular Heart Sounds: normal S1 and normal S2 Extremities: no edema Gastrointestinal (Abdomen): Percussion/Palpation: abdomen soft; abdomen nontender Skin: no rashes, warm and dry Neurologic: PERRL, EOMI, accommodation nl, no face palsy, no dysarthria Psychiatric: A+Ox3, euthymic affect Results & Data Vital Signs (Past 12 Hours) Vital Signs Temp Pulse Pulse Resp BP Pulse Ox O2 Del Method 02/09/23 02:47 36.6 C 77 18 147/92 H 90 Nasal Cannula 02/09/23 00:00 106 H 02/08/23 23:22 36.4 C L 118 H 24 160/88 H 92 Nasal Cannula 02/08/23 20:00 127 H 02/08/23 20:00 Nasal Cannula 02/08/23 19:30 36.5 C 103 H 20 131/82 91 Nasal Cannula O2 Flow Rate 02/09/23 02:47 3 02/09/23 00:00 02/08/23 23:22 2 02/08/23 20:00 02/08/23 20:00 2 02/08/23 19:30 2 Laboratory Results Cardiac Enzymes 02/08/23 02/09/23 Range/Units 11:49 02:45 AST 28 23 (13-39) U/L CBC 02/08/23 02/09/23 Range/Units 11:49 02:45 WBC 11.24 H 12.13 H (4.8-10.8) K/ul RBC 6.38 H 5.29 (4.20-5.40) M/uL Hgb 18.6 H 16.3 H (12.0-16.0) g/dl Hct 56.9 H 47.6 H (37.0-47.0) % Plt Count 254 196 (130-400) K/uL Neut # (Auto) 9.42 H 10.56 H (1.40-6.50) K/uL Lymph # (Auto) 1.39 1.21 (1.2-3.4) K/uL D[place]y # (Auto) 0.36 0.28 (0.11-0.59) K/uL Eos # (Auto) 0.00 0.01 (0-0.50) K/uL Baso # (Auto) 0.03 0.03 (0-0.2) K/uL Comprehensive Metabolic Panel 02/08/23 02/09/23 Range/Units 11:49 02:45 Sodium 142 140 (136-145) mmol/L Potassium 5.0 4.7 (3.5-5.1) mmol/L Chloride 105 112 H (98-107) mmol/L Carbon Dioxide 23 22 (21-32) mmol/L BUN 17 16 (6-23) mg/dl Creatinine 1.10 0.82 (0.6-1.2) mg/dl Glucose 162 H 114 H (70-99(Fasting)) mg/dl Calcium 10.7 H 8.5 L D (8.6-10.3) mg/dl AST 28 23 (13-39) U/L ALT 22 18 (7-52) U/L Alkaline Phosphatase 154 H 106 H (34-104) U/L Total Protein 8.1 5.9 L D (6.0-8.3) gm/dl Albumin 4.9 3.5 (3.4-5.0) gm/dl Intake and Output 02/08/23 02/09/23 02/09/23 22:59 06:59 14:59 Intake Total 1108.333 / 2860.916 632.583 / 2860.916 100 / 100 Balance 1108.333 / 2860.916 632.583 / 2860.916 100 / 100 Intake: IV 1108.333 / 2360.916 132.583 / 2360.916 100 / 100 Lactated Ringer's 1,000 ml @ 38.333 / 38.333 100 mls/hr IV .Q10H [facility] Rx#: [id number] Magnesium Sulfate / D5w 1 gm In 70 / 70 100 / 100 100 ml @ 50 mls/hr IV Q2H [facility] Rx#:[id number] Sodium Chloride 0.9% 1000ML 500 1000 / 1000 ml @ 999 mls/hr IV .Q31M [facility] Rx#:[id number] cefTRIAXone SODIUM 2,000 mg In 70 / 70 Dextrose 5% 50 ml @ 100 mls/hr IV Q24H [facility] Rx#:[id number] dilTIAZem HCL 125 mg In 62.583 / 62.583 Dextrose 5% 100 ml @ 10 MG/HR 10 mls/hr IV .[id number] ONE Rx#: [id number] Oral 500 / 500 Other: # Unmeasured Voids 1 Weight 60.7 kg 62.8 kg Weight Measurement Method Built in [facility] Built in [facility]
[2023-02-09 07:34] LABS: Estimated Average Glucose 131 mg/dl; Hemoglobin A1C 6.2 % (4.5-5.6)
--- NOTE | 2023-02-09 07:39 | XRay Report ---
XR chest 1V portable CLINICAL HISTORY: Pulmonary edema. COMPARISON STUDY: Chest CT February 08, 2023. FINDINGS: There is no pneumothorax. There are small bilateral pleural effusions. Interstitial thicken ing has slightly progressed. Mild asymmetric right lung opacities are present. The suspicious right u pper lobe nodule is not well-visualized by radiography. This is better depicted on chest CT. Cardiome reina is noted. Mediastinal contours are stable. IMPRESSION: 1. Slight progression of pulmonary edema. Asymmetric right lung opacities which are likely related to pulmonary edema although a superimposed infectious process could appear similar. 2. Small bilateral pleural effusions. 3. Suspicious right upper lobe nodule on chest CT of February 08, 2023 not well-visualized by radiography . ACT 112: Negative or not required by law. Electronically signed by: Nico Larson M.D. 02/09/2023 7:36 AM
[2023-02-09] MEDS: INSULIN ASPART PER UNIT CHARGE SC SCH ×4 (07:55→20:56)
--- NOTE | 2023-02-09 08:36 | Hospitalist Progress Note ---
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 Permanent atrial fibrillation with RVR secondary to underlying illness Lactic acidosis Nausea, vomiting and left-sided abdominal pain Symptoms of cystitis Admitted to PCU Patient received IVF on admission but still is tachycardic and lactic acid is 4.6-trended down Likely in setting of dehydration due to GI illness along with A-fib On admission on diltiazem drip, now weaned off Resumed metoprolol tartrate 100 mg twice daily Continue Eliquis [address] a/p: Revealed left hydroureteronephrosis but no evidence of stone Patient does report left-sided flank pain that radiates around left side with associated nausea and vomiting. The pain has since resolved so wonder if she possibly did pass a stone Obtain urinalysis consulted urology Blood cultures pending Empirically treat with Rocephin 2 g daily for now (pt recently tx with oral bactrim for kleb UTI pansensitive, pt asymptomatic at the time) Cardiology consulted for afib RVR, HTN urgency Transition metoprolol tartrate to metoprolol succinate 100 mg twice per day. Restart home dose lisinopril 40 mg daily. Add diltiazem 120 mg daily. HTN urgency pt bp significantly elevated in ED, likely 2/2 pain, afib and missed meds improved with IV morphine and IV diltiazem CT head obtained given HTN and negative resumed home metoprolol on admission now also resumed home lisinopri diltiazem added Dehydration 2/2 vomiting pt with elevated h/h , baseline 16 hemoconcentrated continue IVF, lactate trended down Hypoxia CTA chest - no PE, spiculated RUL nodule noted which is known to be nsclc, severe emphysema, suspect mild pulm edema with trace b/l pleural effusion likely in setting of afib with RVR continue O2 supplementation likely to resolve once underlying illness improves and HR improves NSCLC, RUL hx of colon ca MGUS recent biopsy to establish with CT surgery next week follows [facility] oncology, to f/u with them regarding tx as well Abnormal CTA Abd/Pelvis . Mild left hydroureteronephrosis with delayed left nephrogram and perinephric fluid. No ureteral calculi. The etiology for this dilatation is not clear on this exam and could be due to a recently passed calculus or an occult stricture/lesion. Urology consultation is recommended. 2. Small nodular density along anterior superior bladder bladder wall which could be assessed with cystoscopy. 3. Extensive aortoiliac atherosclerotic plaque. Ectatic infrarenal abdominal aorta. No dissection. Patent branch vessels within the abdomen. Severe stenosis of the right superficial femoral artery and moderate stenosis of the left superficial femoral artery. 4. Indeterminate 1 cm left renal lesion, suboptimally assessed on this exam. Urology was consulted Pt with severe stenosis of right SFA and mod stenosis of L SFA, will need OP referral to vasc she is on asa and statin Hx of T2DM last a1c 6.2 10/23/22 bsg 162 in ED will follow blood sugar and add correction factor novolog only Tobacco abuse nicotine patch Dvt ppx: Bobby DNR/DNI PCP: Dr. Danielle Admission and Anticipated Discharge Date Admission Date: February 08, 2023 Subjective Pt seen in follow up of Afib, RVR, hypoxia, flank pain, n/v Currently laying in bed, in NAD She feels quite tired but denies any more abdominal pain, n/v No fevre, or chills Heart rate still elevated but seems improved and pt seen by cardiology Urology was also consulted Review of Systems Review of Systems: All systems reviewed & are unremarkable except as noted in Subjective Physical Exam Physical Exam: Constitutional: WD/WN, ill appearing, elderly, Fin NAD Head: Normocephalic, Atraumatic Eyes: PERRL, conjunctivae normal, anicteric sclerae ENMT: external ear and nose normal, oropharynx normal Neck: normal visual inspection Respiratory: normal respiratory effort, +rhonchi, no wheeze Cardiovascular: IRR/IRR, tachycardic, no murmur, no edema Chest: normal inspection of chest Abdomen: normal bowel sounds, soft, nontender Musculoskeletal:moves extremities Skin: no rashes, warm and dry normal turgor Neuro/Psych: A+Ox3, PERRL, EOMI, no face palsy, no dysarthria, moves all extremities Results & Data Results & Data Vital Signs (Past 12 Hours) Vital Signs Temp Pulse Pulse Resp BP BP Pulse Ox 02/09/23 07:21 36.7 C 111 H 22 143/97 H 92 02/09/23 02:47 36.6 C 77 18 147/92 H 90 02/09/23 00:00 106 H 02/08/23 23:22 36.4 C L 118 H 24 160/88 H 92 O2 Del Method O2 Flow Rate 02/09/23 07:21 Nasal Cannula 3 02/09/23 02:47 Nasal Cannula 3 02/09/23 00:00 02/08/23 23:22 Nasal Cannula 2 Laboratory Results 02/09/23 02/09/23 02/09/23 Range/Units 07:24 02:45 02:45 WBC (4.8-10.8) K/ul RBC (4.20-5.40) M/uL Hgb (12.0-16.0) g/dl Hct (37.0-47.0) % MCV (80.0-100.0) fL MCH (25.0-34.0) pg MCHC (32.0-36.0) g/dL RDW Std Deviation (36.4-46.3) fL RDW Coeff of Anjali (11.5-14.5) % Plt Count (130-400) K/uL MPV (9.4-12.4) fL Immature Gran % (Auto) % Neut % (Auto) % Lymph % (Auto) % [place] % (Auto) % Eos % (Auto) % Baso % (Auto) % Neut # (Auto) (1.40-6.50) K/uL Lymph # (Auto) (1.2-3.4) K/uL [place] # (Auto) (0.11-0.59) K/uL Eos # (Auto) (0-0.50) K/uL Baso # (Auto) (0-0.2) K/uL Immature Gran # (Auto) (0.01-0.20) K/uL Sodium (136-145) mmol/L Potassium (3.5-5.1) mmol/L Chloride (98-107) mmol/L Carbon Dioxide (21-32) mmol/L Anion Gap (3-11) BUN (6-23) mg/dl Creatinine (0.6-1.2) mg/dl Est Cr Clr Drug Dosing ml/min Est GFR ( Amer) ml/min Est GFR (Non-Af Amer) ml/min BUN/Creatinine Ratio (10-20) Glucose (70-99(Fasting)) mg/dl POC Glucose 131 H (70-99) mg/dl Estimat Average Glucose 131 mg/dl Hemoglobin A1c 6.2 H (4.5-5.6) % Lactate 1.9 (0.4-2.0) mmol/L Calcium (8.6-10.3) mg/dl Magnesium (1.7-2.4) mg/dl Total Bilirubin (0.2-1.0) mg/dl AST (13-39) U/L ALT (7-52) U/L Alkaline Phosphatase (34-104) U/L Total Protein (6.0-8.3) gm/dl Albumin (3.4-5.0) gm/dl Globulin (2.5-4.0) gm/dl Albumin/Globulin Ratio (0.9-2) Procalcitonin (0-0.5) ng/ml TSH (0.300-4.500) uIu/ml Free T4 (0.61-1.60) ng/dl Urine Color Urine Appearance (Clear) Urine pH (4.5-7.5) Ur Specific [place] (1.000-1.030) Urine Protein (Negative) Urine Glucose (UA) (Negative) Urine Ketones (Negative) Urine Blood (Negative) Urine Nitrite (Negative) Urine Bilirubin (Negative) Urine Urobilinogen (Negative) Ur Leukocyte Esterase (Negative) Urine WBC (Auto) (0-5) /hpf Urine RBC (Auto) (0-4) /hpf U Hyaline Cast (Auto) (0-5) /lpf U Epithel Cells (Auto) (0-5) /lpf Urine Bacteria (Auto) (Negative) SARS-CoV-2, RNA, NAAT (NEGATIVE) 02/09/23 02/09/23 02/09/23 Range/Units 02:45 02:45 00:22 WBC 12.13 H (4.8-10.8) K/ul RBC 5.29 (4.20-5.40) M/uL Hgb 16.3 H (12.0-16.0) g/dl Hct 47.6 H (37.0-47.0) % MCV 90.0 (80.0-100.0) fL MCH 30.8 (25.0-34.0) pg MCHC 34.2 (32.0-36.0) g/dL RDW Std Deviation 53.1 H (36.4-46.3) fL RDW Coeff of Anjali 16.4 H (11.5-14.5) % Plt Count 196 (130-400) K/uL MPV 9.3 L (9.4-12.4) fL Immature Gran % (Auto) 0.3 % Neut % (Auto) 87.1 % Lymph % (Auto) 10.0 % [place] % (Auto) 2.3 % Eos % (Auto) 0.1 % Baso % (Auto) 0.2 % Neut # (Auto) 10.56 H (1.40-6.50) K/uL Lymph # (Auto) 1.21 (1.2-3.4) K/uL [place] # (Auto) 0.28 (0.11-0.59) K/uL Eos # (Auto) 0.01 (0-0.50) K/uL Baso # (Auto) 0.03 (0-0.2) K/uL Immature Gran # (Auto) 0.04 (0.01-0.20) K/uL Sodium 140 (136-145) mmol/L Potassium 4.7 (3.5-5.1) mmol/L Chloride 112 H (98-107) mmol/L Carbon Dioxide 22 (21-32) mmol/L Anion Gap 6 (3-11) BUN 16 (6-23) mg/dl Creatinine 0.82 (0.6-1.2) mg/dl Est Cr Clr Drug Dosing 52.5 ml/min Est GFR ( Amer) 80.6 ml/min Est GFR (Non-Af Amer) 69.5 ml/min BUN/Creatinine Ratio 19.5 (10-20) Glucose 114 H (70-99(Fasting)) mg/dl POC Glucose (70-99) mg/dl Estimat Average Glucose mg/dl Hemoglobin A1c (4.5-5.6) % Lactate 3.0 H* (0.4-2.0) mmol/L Calcium 8.5 L D (8.6-10.3) mg/dl Magnesium 1.5 L (1.7-2.4) mg/dl Total Bilirubin 0.9 D (0.2-1.0) mg/dl AST 23 (13-39) U/L ALT 18 (7-52) U/L Alkaline Phosphatase 106 H (34-104) U/L Total Protein 5.9 L D (6.0-8.3) gm/dl Albumin 3.5 (3.4-5.0) gm/dl Globulin 2.4 L (2.5-4.0) gm/dl Albumin/Globulin Ratio 1.5 (0.9-2) Procalcitonin (0-0.5) ng/ml TSH (0.300-4.500) uIu/ml Free T4 (0.61-1.60) ng/dl Urine Color Urine Appearance (Clear) Urine pH (4.5-7.5) Ur Specific [place] (1.000-1.030) Urine Protein (Negative) Urine Glucose (UA) (Negative) Urine Ketones (Negative) Urine Blood (Negative) Urine Nitrite (Negative) Urine Bilirubin (Negative) Urine Urobilinogen (Negative) Ur Leukocyte Esterase (Negative) Urine WBC (Auto) (0-5) /hpf Urine RBC (Auto) (0-4) /hpf U Hyaline Cast (Auto) (0-5) /lpf U Epithel Cells (Auto) (0-5) /lpf Urine Bacteria (Auto) (Negative) SARS-CoV-2, RNA, NAAT (NEGATIVE) 02/08/23 02/08/23 02/08/23 Range/Units 20:11 19:46 18:42 WBC (4.8-10.8) K/ul RBC (4.20-5.40) M/uL Hgb (12.0-16.0) g/dl Hct (37.0-47.0) % MCV (80.0-100.0) fL MCH (25.0-34.0) pg MCHC (32.0-36.0) g/dL RDW Std Deviation (36.4-46.3) fL RDW Coeff of Anjali (11.5-14.5) % Plt Count (130-400) K/uL MPV (9.4-12.4) fL Immature Gran % (Auto) % Neut % (Auto) % Lymph % (Auto) % [place] % (Auto) % Eos % (Auto) % Baso % (Auto) % Neut # (Auto) (1.40-6.50) K/uL Lymph # (Auto) (1.2-3.4) K/uL [place] # (Auto) (0.11-0.59) K/uL Eos # (Auto) (0-0.50) K/uL Baso # (Auto) (0-0.2) K/uL Immature Gran # (Auto) (0.01-0.20) K/uL Sodium (136-145) mmol/L Potassium (3.5-5.1) mmol/L Chloride (98-107) mmol/L Carbon Dioxide (21-32) mmol/L Anion Gap (3-11) BUN (6-23) mg/dl Creatinine (0.6-1.2) mg/dl Est Cr Clr Drug Dosing ml/min Est GFR ( Amer) ml/min Est GFR (Non-Af Amer) ml/min BUN/Creatinine Ratio (10-20) Glucose (70-99(Fasting)) mg/dl POC Glucose 143 H 131 H (70-99) mg/dl Estimat Average Glucose mg/dl Hemoglobin A1c (4.5-5.6) % Lactate 3.6 H* (0.4-2.0) mmol/L Calcium (8.6-10.3) mg/dl Magnesium (1.7-2.4) mg/dl Total Bilirubin (0.2-1.0) mg/dl AST (13-39) U/L ALT (7-52) U/L Alkaline Phosphatase (34-104) U/L Total Protein (6.0-8.3) gm/dl Albumin (3.4-5.0) gm/dl Globulin (2.5-4.0) gm/dl Albumin/Globulin Ratio (0.9-2) Procalcitonin (0-0.5) ng/ml TSH (0.300-4.500) uIu/ml Free T4 (0.61-1.60) ng/dl Urine Color Urine Appearance (Clear) Urine pH (4.5-7.5) Ur Specific [place] (1.000-1.030) Urine Protein (Negative) Urine Glucose (UA) (Negative) Urine Ketones (Negative) Urine Blood (Negative) Urine Nitrite (Negative) Urine Bilirubin (Negative) Urine Urobilinogen (Negative) Ur Leukocyte Esterase (Negative) Urine WBC (Auto) (0-5) /hpf Urine RBC (Auto) (0-4) /hpf U Hyaline Cast (Auto) (0-5) /lpf U Epithel Cells (Auto) (0-5) /lpf Urine Bacteria (Auto) (Negative) SARS-CoV-2, RNA, NAAT (NEGATIVE) 02/08/23 02/08/23 02/08/23 Range/Units 16:51 16:50 14:24 WBC (4.8-10.8) K/ul RBC (4.20-5.40) M/uL Hgb (12.0-16.0) g/dl Hct (37.0-47.0) % MCV (80.0-100.0) fL MCH (25.0-34.0) pg MCHC (32.0-36.0) g/dL RDW Std Deviation (36.4-46.3) fL RDW Coeff of Anjali (11.5-14.5) % Plt Count (130-400) K/uL MPV (9.4-12.4) fL Immature Gran % (Auto) % Neut % (Auto) % Lymph % (Auto) % [place] % (Auto) % Eos % (Auto) % Baso % (Auto) % Neut # (Auto) (1.40-6.50) K/uL Lymph # (Auto) (1.2-3.4) K/uL [place] # (Auto) (0.11-0.59) K/uL Eos # (Auto) (0-0.50) K/uL Baso # (Auto) (0-0.2) K/uL Immature Gran # (Auto) (0.01-0.20) K/uL Sodium (136-145) mmol/L Potassium (3.5-5.1) mmol/L Chloride (98-107) mmol/L Carbon Dioxide (21-32) mmol/L Anion Gap (3-11) BUN (6-23) mg/dl Creatinine (0.6-1.2) mg/dl Est Cr Clr Drug Dosing ml/min Est GFR ( Amer) ml/min Est GFR (Non-Af Amer) ml/min BUN/Creatinine Ratio (10-20) Glucose (70-99(Fasting)) mg/dl POC Glucose (70-99) mg/dl Estimat Average Glucose mg/dl Hemoglobin A1c (4.5-5.6) % Lactate 3.0 H* 4.6 H* (0.4-2.0) mmol/L Calcium (8.6-10.3) mg/dl Magnesium (1.7-2.4) mg/dl Total Bilirubin (0.2-1.0) mg/dl AST (13-39) U/L ALT (7-52) U/L Alkaline Phosphatase (34-104) U/L Total Protein (6.0-8.3) gm/dl Albumin (3.4-5.0) gm/dl Globulin (2.5-4.0) gm/dl Albumin/Globulin Ratio (0.9-2) Procalcitonin (0-0.5) ng/ml TSH (0.300-4.500) uIu/ml Free T4 (0.61-1.60) ng/dl Urine Color Yellow Urine Appearance Clear (Clear) Urine pH 5.0 (4.5-7.5) Ur Specific [place] > 1.045 H (1.000-1.030) Urine Protein 2+ H (Negative) Urine Glucose (UA) Negative (Negative) Urine Ketones Negative (Negative) Urine Blood 1+ H (Negative) Urine Nitrite Negative (Negative) Urine Bilirubin Negative (Negative) Urine Urobilinogen Negative (Negative) Ur Leukocyte Esterase 1+ H (Negative) Urine WBC (Auto) 10-30 H (0-5) /hpf Urine RBC (Auto) 10-30 H (0-4) /hpf U Hyaline Cast (Auto) 1-5 (0-5) /lpf U Epithel Cells (Auto) >30 H (0-5) /lpf Urine Bacteria (Auto) Negative (Negative) SARS-CoV-2, RNA, NAAT (NEGATIVE) 07/20/23 07/20/23 07/20/23 Range/Units 12:41 12:38 12:38 WBC (4.8-10.8) K/ul RBC (4.20-5.40) M/uL Hgb (12.0-16.0) g/dl Hct (37.0-47.0) % MCV (80.0-100.0) fL MCH (25.0-34.0) pg MCHC (32.0-36.0) g/dL RDW Std Deviation (36.4-46.3) fL RDW Coeff of Anjali (11.5-14.5) % Plt Count (130-400) K/uL MPV (9.4-12.4) fL Immature Gran % (Auto) % Neut % (Auto) % Lymph % (Auto) % [place] % (Auto) % Eos % (Auto) % Baso % (Auto) % Neut # (Auto) (1.40-6.50) K/uL Lymph # (Auto) (1.2-3.4) K/uL [place] # (Auto) (0.11-0.59) K/uL Eos # (Auto) (0-0.50) K/uL Baso # (Auto) (0-0.2) K/uL Immature Gran # (Auto) (0.01-0.20) K/uL Sodium (136-145) mmol/L Potassium (3.5-5.1) mmol/L Chloride (98-107) mmol/L Carbon Dioxide (21-32) mmol/L Anion Gap (3-11) BUN (6-23) mg/dl Creatinine (0.6-1.2) mg/dl Est Cr Clr Drug Dosing ml/min Est GFR ( Amer) ml/min Est GFR (Non-Af Amer) ml/min BUN/Creatinine Ratio (10-20) Glucose (70-99(Fasting)) mg/dl POC Glucose (70-99) mg/dl Estimat Average Glucose mg/dl Hemoglobin A1c (4.5-5.6) % Lactate (0.4-2.0) mmol/L Calcium (8.6-10.3) mg/dl Magnesium (1.7-2.4) mg/dl Total Bilirubin (0.2-1.0) mg/dl AST (13-39) U/L ALT (7-52) U/L Alkaline Phosphatase (34-104) U/L Total Protein (6.0-8.3) gm/dl Albumin (3.4-5.0) gm/dl Globulin (2.5-4.0) gm/dl Albumin/Globulin Ratio (0.9-2) Procalcitonin < 0.05 (0-0.5) ng/ml TSH 0.010 L (0.300-4.500) uIu/ml Free T4 0.77 (0.61-1.60) ng/dl Urine Color Urine Appearance (Clear) Urine pH (4.5-7.5) Ur Specific [place] (1.000-1.030) Urine Protein (Negative) Urine Glucose (UA) (Negative) Urine Ketones (Negative) Urine Blood (Negative) Urine Nitrite (Negative) Urine Bilirubin (Negative) Urine Urobilinogen (Negative) Ur Leukocyte Esterase (Negative) Urine WBC (Auto) (0-5) /hpf Urine RBC (Auto) (0-4) /hpf U Hyaline Cast (Auto) (0-5) /lpf U Epithel Cells (Auto) (0-5) /lpf Urine Bacteria (Auto) (Negative) SARS-CoV-2, RNA, NAAT NEGATIVE (NEGATIVE) 02/08/23 02/08/23 02/08/23 Range/Units 12:38 11:49 11:49 WBC 11.24 H (4.8-10.8) K/ul RBC 6.38 H (4.20-5.40) M/uL Hgb 18.6 H (12.0-16.0) g/dl Hct 56.9 H (37.0-47.0) % MCV 89.2 (80.0-100.0) fL MCH 29.2 (25.0-34.0) pg MCHC 32.7 (32.0-36.0) g/dL RDW Std Deviation 52.5 H (36.4-46.3) fL RDW Coeff of Anjali 17.7 H (11.5-14.5) % Plt Count 254 (130-400) K/uL MPV 9.2 L (9.4-12.4) fL Immature Gran % (Auto) 0.4 % Neut % (Auto) 83.7 % Lymph % (Auto) 12.4 % [place] % (Auto) 3.2 % Eos % (Auto) 0.0 % Baso % (Auto) 0.3 % Neut # (Auto) 9.42 H (1.40-6.50) K/uL Lymph # (Auto) 1.39 (1.2-3.4) K/uL [place] # (Auto) 0.36 (0.11-0.59) K/uL Eos # (Auto) 0.00 (0-0.50) K/uL Baso # (Auto) 0.03 (0-0.2) K/uL Immature Gran # (Auto) 0.04 (0.01-0.20) K/uL Sodium 142 (136-145) mmol/L Potassium 5.0 (3.5-5.1) mmol/L Chloride 105 (98-107) mmol/L Carbon Dioxide 23 (21-32) mmol/L Anion Gap 14 H (3-11) BUN 17 (6-23) mg/dl Creatinine 1.10 (0.6-1.2) mg/dl Est Cr Clr Drug Dosing 39.2 ml/min Est GFR ( Amer) 56.5 ml/min Est GFR (Non-Af Amer) 48.7 ml/min BUN/Creatinine Ratio 15.5 (10-20) Glucose 162 H (70-99(Fasting)) mg/dl POC Glucose (70-99) mg/dl Estimat Average Glucose mg/dl Hemoglobin A1c (4.5-5.6) % Lactate 6.1 H* (0.4-2.0) mmol/L Calcium 10.7 H (8.6-10.3) mg/dl Magnesium (1.7-2.4) mg/dl Total Bilirubin 1.4 H (0.2-1.0) mg/dl AST 28 (13-39) U/L ALT 22 (7-52) U/L Alkaline Phosphatase 154 H (34-104) U/L Total Protein 8.1 (6.0-8.3) gm/dl Albumin 4.9 (3.4-5.0) gm/dl Globulin 3.2 (2.5-4.0) gm/dl Albumin/Globulin Ratio 1.5 (0.9-2) Procalcitonin (0-0.5) ng/ml TSH (0.300-4.500) uIu/ml Free T4 (0.61-1.60) ng/dl Urine Color Urine Appearance (Clear) Urine pH (4.5-7.5) Ur Specific [place] (1.000-1.030) Urine Protein (Negative) Urine Glucose (UA) (Negative) Urine Ketones (Negative) Urine Blood (Negative) Urine Nitrite (Negative) Urine Bilirubin (Negative) Urine Urobilinogen (Negative) Ur Leukocyte Esterase (Negative) Urine WBC (Auto) (0-5) /hpf Urine RBC (Auto) (0-4) /hpf U Hyaline Cast (Auto) (0-5) /lpf U Epithel Cells (Auto) (0-5) /lpf Urine Bacteria (Auto) (Negative) SARS-CoV-2, RNA, NAAT (NEGATIVE) Medications Administered Current Inpatient Medications Acetaminophen (Acetaminophen 325 Mg Tab) 650 mg PO Q4H PRN PRN Reason: Pain or Fever Stop: 03/10/23 18:18 Apixaban (Apixaban 5 Mg Tablet) 5 mg PO BID CHERRY Stop: 03/10/23 20:59 Last Admin: 02/08/23 20:01 Dose: 5 mg Aspirin (Aspirin 81 Mg Ectab) 81 mg PO HS CHERRY Stop: 03/10/23 20:59 Last Admin: 02/08/23 19:57 Dose: 81 mg Atorvastatin Calcium (Atorvastatin 40 Mg Tab) 40 mg PO QAM CHERRY Stop: 03/11/23 08:59 Dextrose (Dextrose 50% 50 Ml Syringe) 25 - 50 ml IV UD PRN; Protocol PRN Reason: Hypoglycemia Protocol Stop: 03/10/23 18:18 Fish Oil ([place]-3 (Purified Fish Oil) 1 Gm Cap) 1 gm PO QPM CHERRY Stop: 03/10/23 20:59 Last Admin: 02/08/23 19:57 Dose: 1 gm Glucagon (Glucagon For Inj 1 Mg Vial) 1 mg SQ UD PRN; Protocol PRN Reason: Hypoglycemia Protocol Stop: 03/10/23 18:18 Glucose (Glucose 10 Tab/Tube) 4 - 8 tab PO UD PRN; Protocol PRN Reason: Hypoglycemia Treatment Stop: 03/10/23 18:18 Glucose (Glucose 40% Gel 15 Gm Tube) 15 - 30 gm PO UD PRN; Protocol PRN Reason: Hypoglycemia Protocol Stop: 03/10/23 18:18 Ceftriaxone Sodium 2,000 mg/ (Dextrose) 70 mls @ 100 mls/hr IV Q24H [facility]; Protocol Stop: 02/18/23 18:59 Last Infusion: 02/08/23 21:00 Dose: Infused Sodium Chloride (Nss 1000ml) 1,000 mls @ 100 mls/hr IV .Q10H CHERRY Stop: 03/10/23 20:59 Last Admin: 02/08/23 21:25 Dose: 100 mls/hr Insulin Aspart (Insulin Aspart Per Unit Charge) 0 units SC ACHS CHERRY Stop: 03/10/23 20:59 Last Admin: 02/09/23 07:55 Dose: Not Given Methimazole (Methimazole 5 Mg Tablet) 5 mg PO TID CHERRY Stop: 03/10/23 20:59 Last Admin: 02/08/23 19:57 Dose: 5 mg Metoprolol Tartrate (Metoprolol Tartrate 100 Mg Tab) 100 mg PO BID CHERRY Stop: 03/10/23 20:59 Last Admin: 02/08/23 19:56 Dose: 100 mg Metoprolol Tartrate (Metoprolol Tartrate 1 Mg/Ml Vial) 5 mg IV Q6 PRN PRN Reason: Tachycardia Stop: 03/11/23 11:59 Miscellaneous (Remove Nicoderm Patch) 1 each N/A DAILY@0859 [facility] Stop: 03/11/23 08:58 Miscellaneous (Carbohydrates For Hypoglycemia ) 15 - 30 gm PO UD PRN PRN Reason: Hypoglycemia Protocol Stop: 03/10/23 18:18 Multivitamins/Minerals (Cerovite Adv Formula Tab) 1 tab PO DAILY [facility] Stop: 03/11/23 08:59 Nicotine (Nicotine 21 Mg/24 Hr Tdsy) 21 mg TD QAM [facility] Stop: 03/10/23 18:18 Last Admin: 02/08/23 19:54 Dose: 21 mg Ondansetron HCl (Ondansetron Inj 2 Mg/Ml 2 Ml Vial) 4 mg IV Q6H PRN PRN Reason: Nausea Stop: 03/10/23 18:18 Polyethylene Glycol (Polyethylene (Miralax) 17 Gm Pack) 17 gm PO DAILY PRN PRN Reason: Constipation Stop: 03/10/23 18:18 Potassium Chloride (Potassium Chloride Crtab 20 Meq Tabcr) 20 meq PO QPM CHERRY Stop: 03/10/23 20:59 Last Admin: 02/08/23 19:57 Dose: 20 meq Vitamin B Complex (Vitamin B Complex Tab) 1 tab PO DAILY CHERRY Stop: 03/11/23 08:59
[2023-02-09] MEDS: CEROVITE ADV FORMULA TAB PO SCH (08:38)
[2023-02-09] MEDS: ATORVASTATIN 40 MG TAB PO SCH (08:39)
[2023-02-09] MEDS: METOPROLOL TARTRATE 100 MG TAB PO SCH (08:39)
[2023-02-09] MEDS: APIXABAN 5 MG TABLET PO SCH ×2 (08:39→20:31)
[2023-02-09] MEDS: methIMAzole 5 MG TABLET PO SCH ×3 (08:39→20:40)
[2023-02-09] MEDS: NICOTINE 21 MG/24 HR TDSY TD SCH (08:39)
[2023-02-09] MEDS: VITAMIN B COMPLEX TAB PO SCH (08:40)
--- NOTE | 2023-02-09 09:20 | Urology Progress Note ---
Date of Service February 09, 2023 Assessment & Plan (1) Hydronephrosis: Plan: Follow-up of left hydronephrosis, bladder lesion Afebrile, vitals reviewedAfib with RVR Labs reviewedcreatinine 0.82, WBC 12.13, hemoglobin 16.3 Urine and blood cultures are pending Continue broad-spectrum antibioticsfollow cultures and narrow per sensitivity data when available Subjectively feeling betterno flank pain CT reviewed and discussed with patientdiscussed findings of left hydronephrosis and bladder lesion/nodule Current everyday smoker with significant pack years history Discussed recommendation for cystoscopyshe is agreeable Will arrange outpatient f/u with repeat imaging and cystoscopy will sign off, please contact our service with any additional questions or concerns Admission and Anticipated Discharge Date Admission Date: February 08, 2023 Subjective Patient seen and examined at bedside this morning, chart reviewed. She is awake, alert and sitting up in bed. Reports left flank pain is resolved. Continues to feel tired and weak. Voiding spontaneously without difficulty. Denies hematuria. Denies nausea, vomiting, fever or chills at present. Significant tobacco history. Review of Systems Constitutional: as per Subjective / HPI Gastrointestinal: as per Subjective / HPI Genitourinary: as per Subjective / HPI Physical Exam Physical Exam: General: no acute distress HEENT: Normocephalic Pulmonary: Nonlabored respirations, supplemental oxygen Abdomen: Nondistended, soft and nontender Extremities: Moves all 4 spontaneously Neuro: No gross deficits Psych: alert and oriented, normal mood Skin: Warm, dry, no rashes noted : no CVA tenderness Results & Data Vital Signs (Past 12 Hours) Vital Signs Temp Pulse Pulse Resp BP BP Pulse Ox 02/09/23 07:21 36.7 C 111 H 22 143/97 H 92 02/09/23 02:47 36.6 C 77 18 147/92 H 90 02/09/23 00:00 106 H 02/08/23 23:22 36.4 C L 118 H 24 160/88 H 92 O2 Del Method O2 Flow Rate 02/09/23 07:21 Nasal Cannula 3 02/09/23 02:47 Nasal Cannula 3 02/09/23 00:00 02/08/23 23:22 Nasal Cannula 2 PG Care Time/CCT Total # of Minutes Spent Total Time Spent with Patient: Total time spent is greater than 50% in coordination of care (as documented) at patient's floor/unit and/or counseling patient: Coding Level of Care Code 53009 SUB INP/OBS CARE MIN Diagnoses Hydronephrosis N13.30
[2023-02-09] MEDS: lisinopril 40 MG TAB PO SCH (11:30)
[2023-02-09] MEDS: dilTIAZem HCL 120 MG CAPCR PO SCH (11:30)
[2023-02-09] MEDS: SODIUM CHLORIDE 0.9% 1000ML 1,000 ML IV SCH ×2 (11:31→21:41)
--- NOTE | 2023-02-09 12:08 | Electrocardiogram Report ---
Test Reason : Blood Pressure : / mmHG Vent. Rate : 120 BPM Atrial Rate : 120 BPM P-R Int : 000 ms QRS Dur : 078 ms QT Int : 364 ms P-R-T Axes : 000 104 173 degrees QTc Int : 514 ms Atrial fibrillation with rapid ventricular response Rightward axis Old Septal infarct T-wave inversion in Anterolateral leads , consider ischemia Abnormal ECG When compared with ECG of 08-FEB-2023 11:38, HR has decreased by 21 bpm T-wave inversion in Anterolateral leads now present Confirmed by Karri Schneider ([id number]) on 02/09/2023 12:07:59 PM Referred By: Clement Danielle Confirmed By:Karri Schneider
--- NOTE | 2023-02-09 12:16 | Electrocardiogram Report ---
Test Reason : Blood Pressure : / mmHG Vent. Rate : 141 BPM Atrial Rate : 000 BPM P-R Int : 000 ms QRS Dur : 076 ms QT Int : 342 ms P-R-T Axes : 000 103 156 degrees QTc Int : 523 ms Atrial fibrillation with rapid ventricular response Rightward axis Diffuse Nonspecific ST and T wave abnormality Abnormal ECG When compared with ECG of 15-NOV-2018 06:34, Sinus rhythm no longer present HR has increased by 78 bpm Confirmed by Karri Schneider ([id number]) on 02/09/2023 12:16:02 PM Referred By: Clement Danielle Confirmed By:Karri Schneider
[2023-02-09] MEDS: METOPROLOL TARTRATE 1 MG/ML VIAL IV PRN (18:39)
[2023-02-09] MEDS: cefTRIAXone SODIUM 2,000 MG in DEXTROSE 5% 50 ML IV SCH (18:40)
[2023-02-09] MEDS: POTASSIUM CHLORIDE CRTAB 20 MEQ TABCR PO SCH (20:31)
[2023-02-09] MEDS: ASPIRIN 81 MG ECTAB PO SCH (20:31)
[2023-02-09] MEDS: METOPROLOL SUCC 50MG EXT REL TAB PO SCH (20:32)
[2023-02-09] MEDS: OMEGA-3 (PURIFIED FISH OIL) 1 GM CAP PO SCH (20:40)
[2023-02-09] MEDS ORDERED: dilTIAZem HCl 5 MG/ML 5 ML VIAL IV STA (21:22)
[2023-02-10] MEDS: METOPROLOL TARTRATE 1 MG/ML VIAL IV PRN (01:05)
[2023-02-10] MEDS ORDERED: dilTIAZem HCl 5 MG/ML 5 ML VIAL IV STA (04:37)
[2023-02-10] MEDS ORDERED: STAT IV Infusion **Titration per Protocol STA (04:37)
[2023-02-10] MEDS: dilTIAZem HCL 125 MG in DEXTROSE 5% 100 ML IV SCH ×3 (04:56→22:09)
[2023-02-10 07:01] LABS: BUN Creatinine Ratio 33.8 (10-20); Calcium 8.8 mg/dl (8.6-10.3); Creatinine Clr Calc Pharmacy 66.3 ml/min; Est GFR (Non-African American) 86.2 ml/min; Magnesium 1.8 mg/dl (1.7-2.4); Phosphorus 2.5 mg/dl (2.5-4.9); Potassium 4.3 mmol/L (3.5-5.1)
[2023-02-10 07:21] LABS: Hematocrit (blood only) 45.3 % (37.0-47.0); Hemoglobin 15.2 g/dl (12.0-16.0); Mean Corpuscular Hemoglobin 29.3 pg (25.0-34.0); Mean Corpuscular Hgb Conc 33.6 g/dL (32.0-36.0); Mean Corpuscular Volume 87.3 fL (80.0-100.0); Platelet Count 204 K/uL (130-400); RDW Standard Deviation 51.1 fL (36.4-46.3); Red Blood Count 5.19 M/uL (4.20-5.40); White Blood Count 10.85 K/ul (4.8-10.8)
--- NOTE | 2023-02-10 07:22 | Hospitalist Progress Note ---
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 Permanent atrial fibrillation with RVR secondary to underlying illness Lactic acidosis Nausea, vomiting and left-sided abdominal pain Symptoms of cystitis Admitted to PCU Patient received IVF on admission but still is tachycardic and lactic acid is 4.6-trended down Likely in setting of dehydration due to GI illness along with A-fib On admission on diltiazem drip, was weaned off yesterday however restarted overnight again as HR uncontrolled Continue metoprolol succinate 100 mg twice daily (switched from home tartrate) Continue Eliquis 5 mg twice daily Restarted lisinopril 40 mg daily Po diltiazem was started yesterday -> as pt is back on IV , will stop PO now CT a/p: Revealed left hydroureteronephrosis but no evidence of stone Patient reported left-sided flank pain that radiated around left side with associated nausea and vomiting. The pain has since resolved so wonder if she possibly did pass a stone Obtained urinalysis, ucultx - negative Pt then did not void yesterday until the evening and now w/ hematuria (also pt on eliquis), UA repeated Urology consulted - appreciate their input Blood cultures pending Empirically treating with Rocephin 2 g daily for now (pt recently tx with oral bactrim for kleb UTI pansensitive, pt asymptomatic at the time) Cardiology consulted for afib RVR, HTN urgency Appreciate their input Echo obtained (02/10/23) Per cardiology - Patient found to have atrial fibrillation with rapid ventricular rate. Has a history of chronic , permanent atrial fibrillation. Her home dose of metoprolol tartrate was transitioned to succinate 100 mg two times per day. and oral Diltiazem CD 120 started on 02/09/22. Last night diltiazem infusion added and is at 15 mg /hr with rates improved from 140 bpm to 110-120 bpm . IV metoprolol 2.5 mg this am further improved her rate and alleviated her dyspnea. It is noted that she has developed T wave inversion in the lateral precordial leads, on tracing 02/09/23 and again 02/11/23. This is new compared to 02/08/23. HS troponin mildly elevated at 39.7 pg/ ml, with no definite anginal symptoms. Echocardiogram reveals diffuse left ventricular hypokinesis of the apical and mid segments that spares the basal segments, LVEF 30-35%, moderate to severe pulmonary hypertension, PASP 63 m Hg, new compared to 2019- echocardiogram compatible with ischemia or stress induced CM. PLAN: * Discontinue oral diltiazem CD 120 mg daily * add topical nitroglycerin for afterload reduction * add IV digoxin x 2 doses * continue metoprolol succinate 100 mg BID, and IV diltiazem for now * Continue Eliquis (monitor for worsening hematuria) * Exam and CXR 02/10/23 does not reflect volume overload however patient is 5 liters positive this admission. For now will hold IV fluids and give 20 mg IV furosemide at echo reflects elevated filling pressures. Also patient is noted to have ongoing hyperthyroidism with low TSH. Had CT enhanced contrast this admission with may have precipitated worsening thyroid dysfunction. I would consider increasing her chronic methimazole dose from 5 mg TID to 10 mg TID. HTN urgency pt bp significantly elevated in ED, likely 2/2 pain, afib and missed meds improved with IV morphine and IV diltiazem CT head obtained given HTN and negative Cont. metoprolol on admission now also resumed home lisinopril IV diltiazem for afib as above Dehydration 2/2 vomiting pt with elevated h/h , baseline 16 hemoconcentrated continue IVF, lactate trended down Hypoxia CTA chest - no PE, spiculated RUL nodule noted which is known to be nsclc, severe emphysema, suspect mild pulm edema with trace b/l pleural effusion likely in setting of afib with RVR continue O2 supplementation likely to resolve once underlying illness improves and HR improves NSCLC, RUL hx of colon ca MGUS recent biopsy to establish with CT surgery next week follows [facility] oncology, to f/u with them regarding tx as well Abnormal CTA Abd/Pelvis . Mild left hydroureteronephrosis with delayed left nephrogram and perinephric fluid. No ureteral calculi. The etiology for this dilatation is not clear on this exam and could be due to a recently passed calculus or an occult stricture/lesion. Urology consultation is recommended. 2. Small nodular density along anterior superior bladder bladder wall which could be assessed with cystoscopy. 3. Extensive aortoiliac atherosclerotic plaque. Ectatic infrarenal abdominal aorta. No dissection. Patent branch vessels within the abdomen. Severe stenosis of the right superficial femoral artery and moderate stenosis of the left superficial femoral artery. 4. Indeterminate 1 cm left renal lesion, suboptimally assessed on this exam. Urology was consulted Pt with severe stenosis of right SFA and mod stenosis of L SFA,will need OP referral to vasc she is on asa and statin Hx of T2DM last a1c 6.2 10/23/22 bsg 162 in ED will follow blood sugar and add correction factor novolog only Tobacco abuse nicotine patch Dvt ppx: Bobby DNR/DNI PCP: Dr. Danielle Admission and Anticipated Discharge Date Admission Date: February 08, 2023 Subjective Pt seen in follow up of Afib, RVR, hypoxia, flank pain, n/v Currently laying in bed, in NAD, however feeling very tired and worse than yesterday Denies any abd. pain However issues w/ voiding yesterday - did not urinate whole day until the evening, then had some hematruia (tea- colored urine overnight and this AM) - repeat UA ordered - current ucultx negative No fever, or chills Heart rate still elevated and dilt drip restarted overnight. Giving small dose IV metoprolol now and contacted / discussed w/cardiology for further assistance. Echo ordered. Urology also updated about issues w/ urination and hematuria Review of Systems Review of Systems: All systems reviewed & are unremarkable except as noted in Subjective Physical Exam Physical Exam: Constitutional: WD/WN, ill appearing, elderly, Fin NAD Head: Normocephalic, Atraumatic Eyes: PERRL, conjunctivae normal, anicteric sclerae ENMT: external ear and nose normal, oropharynx normal Neck: normal visual inspection Respiratory: normal respiratory effort, +rhonchi, no wheeze Cardiovascular: IRR/IRR, tachycardic, no murmur, no edema Chest: normal inspection of chest Abdomen: normal bowel sounds, soft, nontender Musculoskeletal:moves extremities Skin: no rashes, warm and dry normal turgor Neuro/Psych: A+Ox3, PERRL, EOMI, no face palsy, no dysarthria, moves all extremities Results & Data Results & Data Vital Signs (Past 12 Hours) Vital Signs Temp Pulse Pulse Resp BP BP BP 02/10/23 06:48 128 H 145/93 H 02/10/23 06:17 141 H 02/10/23 05:15 144 H 02/10/23 05:45 126 H 152/115 H 02/10/23 04:50 147 H 155/101 H 02/10/23 02:22 36.4 C L 138 H 20 147/99 H 02/10/23 01:20 119 H 122/97 02/10/23 01:05 134 H 156/101 H 02/09/23 23:25 144 H 02/09/23 23:03 36.4 C L 109 H 18 157/102 H 02/09/23 20:20 02/09/23 20:30 147 H 147/91 H 02/09/23 21:40 139 H 144/102 H Pulse Ox O2 Del Method O2 Flow Rate 02/10/23 06:48 02/10/23 06:17 02/10/23 05:15 02/10/23 05:45 02/10/23 04:50 02/10/23 02:22 91 Nasal Cannula 3 02/10/23 01:20 02/10/23 01:05 02/09/23 23:25 02/09/23 23:03 90 Nasal Cannula 3 02/09/23 20:20 Nasal Cannula 3 02/09/23 20:30 02/09/23 21:40 Laboratory Results 02/10/23 02/10/23 02/09/23 Range/Units 06:04 06:04 20:22 WBC Pending RBC Pending Hgb Pending Hct Pending MCV Pending MCH Pending MCHC Pending Plt Count Pending Sodium 140 (136-145) mmol/L Potassium 4.3 (3.5-5.1) mmol/L Chloride 112 H (98-107) mmol/L Carbon Dioxide 19 L (21-32) mmol/L Anion Gap 9 (3-11) BUN 22 (6-23) mg/dl Creatinine 0.65 (0.6-1.2) mg/dl Est Cr Clr Drug Dosing 66.3 ml/min Est GFR ( Amer) 100.0 ml/min Est GFR (Non-Af Amer) 86.2 ml/min BUN/Creatinine Ratio 33.8 H (10-20) Glucose 128 H (70-99(Fasting)) mg/dl POC Glucose 123 H (70-99) mg/dl Estimat Average Glucose mg/dl Hemoglobin A1c (4.5-5.6) % Calcium 8.8 (8.6-10.3) mg/dl Phosphorus 2.5 (2.5-4.9) mg/dl Magnesium 1.8 (1.7-2.4) mg/dl 02/09/23 02/09/23 02/09/23 Range/Units 16:26 11:27 07:24 WBC RBC Hgb Hct MCV MCH MCHC Plt Count Sodium (136-145) mmol/L Potassium (3.5-5.1) mmol/L Chloride (98-107) mmol/L Carbon Dioxide (21-32) mmol/L Anion Gap (3-11) BUN (6-23) mg/dl Creatinine (0.6-1.2) mg/dl Est Cr Clr Drug Dosing ml/min Est GFR ( Amer) ml/min Est GFR (Non-Af Amer) ml/min BUN/Creatinine Ratio (10-20) Glucose (70-99(Fasting)) mg/dl POC Glucose 118 H 111 H 131 H (70-99) mg/dl Estimat Average Glucose mg/dl Hemoglobin A1c (4.5-5.6) % Calcium (8.6-10.3) mg/dl Phosphorus (2.5-4.9) mg/dl Magnesium (1.7-2.4) mg/dl 02/09/23 Range/Units 02:45 WBC RBC Hgb Hct MCV MCH MCHC Plt Count Sodium (136-145) mmol/L Potassium (3.5-5.1) mmol/L Chloride (98-107) mmol/L Carbon Dioxide (21-32) mmol/L Anion Gap (3-11) BUN (6-23) mg/dl Creatinine (0.6-1.2) mg/dl Est Cr Clr Drug Dosing ml/min Est GFR ( Amer) ml/min Est GFR (Non-Af Amer) ml/min BUN/Creatinine Ratio (10-20) Glucose (70-99(Fasting)) mg/dl POC Glucose (70-99) mg/dl Estimat Average Glucose 131 mg/dl Hemoglobin A1c 6.2 H (4.5-5.6) % Calcium (8.6-10.3) mg/dl Phosphorus (2.5-4.9) mg/dl Magnesium (1.7-2.4) mg/dl Medications Administered Current Inpatient Medications Acetaminophen (Acetaminophen 325 Mg Tab) 650 mg PO Q4H PRN PRN Reason: Pain or Fever Stop: 03/10/23 18:18 Apixaban (Apixaban 5 Mg Tablet) 5 mg PO BID [facility] Stop: 03/10/23 20:59 Last Admin: 02/09/23 20:31 Dose: 5 mg Aspirin (Aspirin 81 Mg Ectab) 81 mg PO HS [facility] Stop: 03/10/23 20:59 Last Admin: 02/09/23 20:31 Dose: 81 mg Atorvastatin Calcium (Atorvastatin 40 Mg Tab) 40 mg PO QAM [facility] Stop: 03/11/23 08:59 Last Admin: 02/09/23 08:39 Dose: 40 mg Dextrose (Dextrose 50% 50 Ml Syringe) 25 - 50 ml IV UD PRN; Protocol PRN Reason: Hypoglycemia Protocol Stop: 03/10/23 18:18 Diltiazem HCl (Diltiazem Hcl 120 Mg Capcr) 120 mg PO QAM [facility] Stop: 03/11/23 10:44 Last Admin: 02/09/23 11:30 Dose: 120 mg Fish Oil ([place]-3 (Purified Fish Oil) 1 Gm Cap) 1 gm PO QPM [facility] Stop: 03/10/23 20:59 Last Admin: 02/09/23 20:40 Dose: 1 gm Glucagon (Glucagon For Inj 1 Mg Vial) 1 mg SQ UD PRN; Protocol PRN Reason: Hypoglycemia Protocol Stop: 03/10/23 18:18 Glucose (Glucose 10 Tab/Tube) 4 - 8 tab PO UD PRN; Protocol PRN Reason: Hypoglycemia Treatment Stop: 03/10/23 18:18 Glucose (Glucose 40% Gel 15 Gm Tube) 15 - 30 gm PO UD PRN; Protocol PRN Reason: Hypoglycemia Protocol Stop: 03/10/23 18:18 Ceftriaxone Sodium 2,000 mg/ (Dextrose) 70 mls @ 100 mls/hr IV Q24H [facility]; Protocol Stop: 02/18/23 18:59 Last Infusion: 02/09/23 19:22 Dose: Infused Sodium Chloride (Nss 1000ml) 1,000 mls @ 100 mls/hr IV .Q10H [facility] Stop: 03/10/23 20:59 Last Admin: 02/09/23 21:41 Dose: 100 mls/hr Diltiazem HCl 125 mg/ Dextrose 125 mls @ 15 mls/hr IV .Q8H20M [facility]; Protocol Stop: 03/12/23 04:44 Last Titration: 02/10/23 06:50 Dose: 15 mg/hr, 15 mls/hr Insulin Aspart (Insulin Aspart Per Unit Charge) 0 units SC ACHS [facility] Stop: 03/10/23 20:59 Last Admin: 02/09/23 20:56 Dose: Not Given Lisinopril (Lisinopril 40 Mg Tab) 40 mg PO QAM [facility] Stop: 03/11/23 10:14 Last Admin: 02/09/23 11:30 Dose: 40 mg Methimazole (Methimazole 5 Mg Tablet) 5 mg PO TID [facility] Stop: 03/10/23 20:59 Last Admin: 02/09/23 20:40 Dose: 5 mg Metoprolol Succinate (Metoprolol Succ 50mg Ext Rel Tab) 100 mg PO BID [facility] Stop: 03/11/23 20:59 Last Admin: 02/09/23 20:32 Dose: 100 mg Metoprolol Tartrate (Metoprolol Tartrate 1 Mg/Ml Vial) 5 mg IV Q6 PRN PRN Reason: Tachycardia Stop: 03/11/23 11:59 Last Admin: 02/10/23 01:05 Dose: 5 mg Miscellaneous (Remove Nicoderm Patch) 1 each N/A DAILY@0859 [facility] Stop: 03/11/23 08:58 Last Admin: 02/09/23 08:40 Dose: 1 each Miscellaneous (Carbohydrates For Hypoglycemia ) 15 - 30 gm PO UD PRN PRN Reason: Hypoglycemia Protocol Stop: 03/10/23 18:18 Multivitamins/Minerals (Cerovite Adv Formula Tab) 1 tab PO DAILY [facility] Stop: 03/11/23 08:59 Last Admin: 02/09/23 08:38 Dose: 1 tab Nicotine (Nicotine 21 Mg/24 Hr Tdsy) 21 mg TD QAM [facility] Stop: 03/10/23 18:18 Last Admin: 02/09/23 08:39 Dose: 21 mg Ondansetron HCl (Ondansetron Inj 2 Mg/Ml 2 Ml Vial) 4 mg IV Q6H PRN PRN Reason: Nausea Stop: 03/10/23 18:18 Polyethylene Glycol (Polyethylene (Miralax) 17 Gm Pack) 17 gm PO DAILY PRN PRN Reason: Constipation Stop: 03/10/23 18:18 Potassium Chloride (Potassium Chloride Crtab 20 Meq Tabcr) 20 meq PO QPM [facility] Stop: 03/10/23 20:59 Last Admin: 02/09/23 20:31 Dose: 20 meq Vitamin B Complex (Vitamin B Complex Tab) 1 tab PO DAILY [facility] Stop: 03/11/23 08:59 Last Admin: 02/09/23 08:40 Dose: 1 tab
[2023-02-10] MEDS ORDERED: MAGNESIUM SULFATE / D5W 1 GM/100 ML BAG IV ONE (07:45)
--- NOTE | 2023-02-10 07:58 | XRay Report ---
XR chest 1V portable CLINICAL HISTORY: hypoxia COMPARISON STUDY: Chest CT February 08, 2023. Chest radiograph February 09, 2023. FINDINGS: There is no pneumothorax. Trace bilateral pleural effusions are similar to prior exam. Card iomegaly is again noted. Suspicious right upper lobe nodule is better depicted on chest CT. Pulmonary edema has mildly improved. There are mild bibasilar opacities, similar to slightly improved since pr ior exam. IMPRESSION: 1. Mild improvement in pulmonary edema. 2. Trace bilateral pleural effusions. 3. Stable to slight decrease in bibasilar opacities. ACT 112: Negative or not required by law. Electronically signed by: Nico Larson M.D. 02/10/2023 7:57 AM
[2023-02-10] MEDS: INSULIN ASPART PER UNIT CHARGE SC SCH ×4 (08:05→20:34)
[2023-02-10] MEDS: VITAMIN B COMPLEX TAB PO SCH (08:18)
[2023-02-10] MEDS: CEROVITE ADV FORMULA TAB PO SCH (08:18)
[2023-02-10] MEDS: methIMAzole 5 MG TABLET PO SCH ×3 (08:18→20:02)
[2023-02-10] MEDS: dilTIAZem HCL 120 MG CAPCR PO SCH (08:18)
[2023-02-10] MEDS: lisinopril 40 MG TAB PO SCH (08:18)
[2023-02-10] MEDS: METOPROLOL SUCC 50MG EXT REL TAB PO SCH ×2 (08:19→20:01)
[2023-02-10] MEDS: NICOTINE 21 MG/24 HR TDSY TD SCH (08:19)
[2023-02-10] MEDS: ATORVASTATIN 40 MG TAB PO SCH (08:19)
[2023-02-10] MEDS: APIXABAN 5 MG TABLET PO SCH ×2 (08:19→20:01)
[2023-02-10] MEDS: SODIUM CHLORIDE 0.9% 1000ML 1,000 ML IV SCH (08:23)
[2023-02-10] MEDS ORDERED: METOPROLOL TARTRATE 1 MG/ML VIAL IV STA (08:41)
--- NOTE | 2023-02-10 08:51 | Electrocardiogram Report ---
Test Reason : Blood Pressure : / mmHG Vent. Rate : 141 BPM Atrial Rate : 063 BPM P-R Int : 000 ms QRS Dur : 080 ms QT Int : 332 ms P-R-T Axes : 000 099 177 degrees QTc Int : 508 ms Atrial fibrillation with rapid ventricular response Rightward axis Old Septal infarct (cited on or before 09-FEB-2023) Abnormal ECG When compared with ECG of 09-FEB-2023 05:47, HR has increased by 24 bpm Confirmed by Karri Schneider ([id number]) on 02/10/2023 8:51:29 AM Referred By: Clement Danielle Confirmed By:Karri Schneider
--- NOTE | 2023-02-10 09:12 | Urology Progress Note ---
Date of Service February 10, 2023 Assessment & Plan (1) Hydronephrosis: (2) Gross hematuria: Plan 77-year-old female with asymptomatic left hydronephrosis and a questionable bladder mass Patient remains asymptomatic and is voiding without issue. Can get PVRs and if significantly elevated, i.e. greater than 400 cc, can discuss placing a catheter with the patient Urology to sign off. We will schedule outpatient follow-up with cystoscopy to discuss plan moving forward for abnormality seen on CT scan Admission and Anticipated Discharge Date Admission Date: February 08, 2023 Subjective Reengaged by medicine this patient when a significant mount of time without voiding and then had some mild hematuria. Patient does not report any left flank pain or difficulty urinating. PVRs have been 300 previously. Patient is currently on A-fib but otherwise hemodynamically stable. Review of Systems Review of Systems: 14 point review of systems negative outside of what is listed above in HPI Physical Exam Physical Exam: General: Alert and oriented, no acute distress HEENT: Normocephalic, mucous membranes moist Pulmonary: Nonlabored respirations Abdomen: Nondistended, no SP or left CVA tenderness Extremities: Moves all 4 spontaneously Neuro: No gross deficits Skin: Warm, dry, no rashes noted Results & Data Vital Signs (Past 12 Hours) Vital Signs Temp Pulse Pulse Resp BP BP Pulse Ox 02/10/23 08:54 130 H 142/97 H 02/10/23 07:29 36.4 C L 96 H 18 168/102 H 90 02/10/23 06:48 128 H 145/93 H 02/10/23 06:17 141 H 02/10/23 05:15 144 H 02/10/23 05:45 126 H 152/115 H 02/10/23 04:50 147 H 155/101 H 02/10/23 02:22 36.4 C L 138 H 20 147/99 H 91 02/10/23 01:20 119 H 122/97 02/10/23 01:05 134 H 156/101 H 02/09/23 23:25 144 H 02/09/23 23:03 36.4 C L 109 H 18 157/102 H 90 02/09/23 21:40 139 H 144/102 H O2 Del Method O2 Flow Rate 02/10/23 08:54 02/10/23 07:29 Nasal Cannula 3 02/10/23 06:48 02/10/23 06:17 02/10/23 05:15 02/10/23 05:45 02/10/23 04:50 02/10/23 02:22 Nasal Cannula 3 02/10/23 01:20 02/10/23 01:05 02/09/23 23:25 02/09/23 23:03 Nasal Cannula 3 02/09/23 21:40 PG Care Time/CCT Total # of Minutes Spent Total Time Spent with Patient: Total time spent is greater than 50% in coordination of care (as documented) at patient's floor/unit and/or counseling patient: Coding Level of Care Code 18082 SUB INP/OBS CARE 2/35MIN Diagnoses Hydronephrosis N13.30 Gross hematuria R31.0
[2023-02-10] MEDS ORDERED: FUROSEMIDE INJ 20 MG/2 ML VIAL IV ONE (11:00)
[2023-02-10] MEDS ORDERED: DIGOXIN 125 MCG in SYRINGE 9.5 ML IV ONE ×2 (11:00→16:00)
--- NOTE | 2023-02-10 11:04 | Cardiology Progress Note ---
Date of Service February 10, 2023 Assessment & Plan (1) Permanent atrial fibrillation with RVR: Plan: Patient presented with 3 days ago with complaints of abdominal pain and shortness of breath. Abdominal discomfort improved, still with shortness of breath at rest that is worse than her typical baseline. Has h/o underlying lung disease and recently diagnosed CT guided lung biopsy with diagnosis of squamous cell lung carcinoma. She as found to have hydronephrosis. Per Urology progress notes, possible the patient may have passed a kidney stone. It is also possible the patient may have some underlying ureteral lesion or ureteral stricture. Mild hematuria (on Eliquis) is noted with concentrated urine an concern of a bladder lesion on CT. Hgb stable at 15.2. Patient found to have atrial fibrillation with rapid ventricular rate. Has a history of chronic , permanent atrial fibrillation. Her home dose of metoprolol tartrate was transitioned to succinate 100 mg two times per day. and oral Diltiazem CD 120 started on 02/09/22. Last night diltiazem infusion added and is at 15 mg /hr with rates improved from 140 bpm to 110-120 bpm . IV metoprolol 2.5 mg this am further improved her rate and alleviated her dyspnea. It is noted that she has developed T wave inversion in the lateral precordial leads, on tracing 02/09/23 and again 02/11/23. This is new compared to 02/08/23. HS troponin mildly elevated at 39.7 pg/ ml, with no definite anginal symptoms. Echocardiogram reveals diffuse left ventricular hypokinesis of the apical and mid segments that spares the basal segments, LVEF 30-35%, moderate to severe pulmonary hypertension, PASP 63 m Hg, new compared to 2019- echocardiogram compatible with ischemia or stress induced CM. PLAN: * Discontinue oral diltiazem CD 120 mg daily * add topical nitroglycerin for afterload reduction * add IV digoxin x 2 doses * continue metoprolol succinate 100 mg BID, and IV diltiazem for now * Continue Eliquis (monitor for worsening hematuria) * Exam and CXR 02/10/23 does not reflect volume overload however patient is 5 liters positive this admission. For now will hold IV fluids and give 20 mg IV furosemide at echo reflects elevated filling pressures. Continue Rocephin for possible UTI or pneumonia-urine studies negative thus far. Also patient is noted to have ongoing hyperthyroidism with low TSH. Had CT enhanced contrast this admission with may have precipitated worsening thyroid dysfunction. I would consider increasing her chronic methimazole dose from 5 mg TID to 10 mg TID. Case discussed with Dr Voss. I spent a total of 40 minutes on the date of service in preparation, delivery, and documentation of the care provided to this patient, excluding any time spent in the performance of separately billed services. Admission and Anticipated Discharge Date Admission Date: February 08, 2023 Subjective Patient seen in cardiology follow up. Patient with ongoing atrial fibrillation with rapid ventricular rate. Placed on a diltiazem infusion overnight for RVR with ventricular rate up to 140 bpm . Noted dsypnea, that improved after addition of metoprolol 2.5 mg IV x 1 this am prior to my arrival with rate down to 111 bpm. Physical Exam Constitutional: + ill appearing; no acute distress Respiratory: normal respiratory effort, lungs clear to auscultation Cardiovascular: Rate/Rhythm: + tachycardic; not irregularly irregular Heart Sounds: normal S1 and normal S2; no murmur Vessels: no JVD Extremities: no edema Gastrointestinal (Abdomen): normal bowel sounds, soft, nontender, no hepatosplenomegaly Neurologic: PERRL, EOMI, accommodation nl, no face palsy, no dysarthria Results & Data Vital Signs (Past 12 Hours) Vital Signs Temp Pulse Pulse Resp BP BP Pulse Ox 02/10/23 10:00 109 H 02/10/23 09:22 02/10/23 09:09 109 H 142/99 H 02/10/23 08:54 130 H 142/97 H 02/10/23 07:29 36.4 C L 96 H 18 168/102 H 90 02/10/23 06:48 128 H 145/93 H 02/10/23 06:17 141 H 02/10/23 05:15 144 H 02/10/23 05:45 126 H 152/115 H 02/10/23 04:50 147 H 155/101 H 02/10/23 02:22 36.4 C L 138 H 20 147/99 H 91 02/10/23 01:20 119 H 122/97 02/10/23 01:05 134 H 156/101 H 02/09/23 23:25 144 H 02/09/23 23:03 36.4 C L 109 H 18 157/102 H 90 O2 Del Method O2 Flow Rate 02/10/23 10:00 02/10/23 09:22 Nasal Cannula 4 02/10/23 09:09 02/10/23 08:54 02/10/23 07:29 Nasal Cannula 3 02/10/23 06:48 02/10/23 06:17 02/10/23 05:15 02/10/23 05:45 02/10/23 04:50 02/10/23 02:22 Nasal Cannula 3 02/10/23 01:20 02/10/23 01:05 02/09/23 23:25 02/09/23 23:03 Nasal Cannula 3 Laboratory Results Cardiac Enzymes 02/10/23 Range/Units 09:03 Troponin I High Sens 39.7 H (0-14) pg/ml CBC 02/10/23 Range/Units 06:04 WBC 10.85 H (4.8-10.8) K/ul RBC 5.19 (4.20-5.40) M/uL Hgb 15.2 (12.0-16.0) g/dl Hct 45.3 (37.0-47.0) % Plt Count 204 (130-400) K/uL Comprehensive Metabolic Panel 02/10/23 Range/Units 06:04 Sodium 140 (136-145) mmol/L Potassium 4.3 (3.5-5.1) mmol/L Chloride 112 H (98-107) mmol/L Carbon Dioxide 19 L (21-32) mmol/L BUN 22 (6-23) mg/dl Creatinine 0.65 (0.6-1.2) mg/dl Glucose 128 H (70-99(Fasting)) mg/dl Calcium 8.8 (8.6-10.3) mg/dl Intake and Output 02/09/23 02/10/23 02/10/23 22:59 06:59 14:59 Intake Total 1070 / 2434.916 114.916 / 2434.916 1100 / 1100 Output Total 300 / 600 300 / 600 Balance 770 / 1834.916 -185.084 / 6250.377 8811 / 1100 Intake: IV 1070 / 2184.916 14.916 / 2184.916 1100 / 1100 Magnesium Sulfate / D5w 1 gm In 100 / 100 100 ml @ 50 mls/hr IV ONE ONE Rx#:[id number] Sodium Chloride 0.9% 1000ML 1, 1000 / 2000 1000 / 1000 000 ml @ 100 mls/hr IV .Q10H [facility] Rx#:[id number] cefTRIAXone SODIUM 2,000 mg In 70 / 70 Dextrose 5% 50 ml @ 100 mls/hr IV Q24H [facility] Rx#:[id number] dilTIAZem HCL 125 mg In 14.916 / 14.916 Dextrose 5% 100 ml @ 5 MG/HR 5 mls/hr IV .Q24H [facility] Rx#: [id number] Oral 100 / 250 Output: Urine 300 / 600 300 / 600 Other: Other Intake Source Sips # Unmeasured Voids 1 0 Weight 64.8 kg Weight Measurement Method Built in [facility]
[2023-02-10] MEDS: NITROGLYCERIN 2% OINTMENT 30GM TUBE EXT SCH ×3 (11:12→23:58)
[2023-02-10 11:43] LABS: Appearance Urine Cloudy (Clear); Bilirubin Urine 1+ (Negative); Blood Urine 3+ (Negative); Color Urine Brown; Glucose Urine UA Negative (Negative); Ketones Urine Trace (Negative); Leukocyte Esterase Urine Negative (Negative); Nitrite Urine Negative (Negative); Protein Urine 3+ (Negative); Specific Gravity Urine >= 1.030 (1.000-1.030); Urobilinogen Urine Negative (Negative); pH Urine 5.5 (4.5-7.5)
[2023-02-10 11:50] LABS: Bacteria Urine 1+ (Negative); Epithelial Cell Urine 0-5 /lpf (0-5); RBC Urine >30 /hpf (0-4); WBC Urine >30 /hpf (0-5)
[2023-02-10] MEDS: cefTRIAXone SODIUM 2,000 MG in DEXTROSE 5% 50 ML IV SCH (19:09)
[2023-02-10] MEDS: OMEGA-3 (PURIFIED FISH OIL) 1 GM CAP PO SCH (20:01)
[2023-02-10] MEDS: ASPIRIN 81 MG ECTAB PO SCH (20:01)
[2023-02-10] MEDS: POTASSIUM CHLORIDE CRTAB 20 MEQ TABCR PO SCH (20:02)
[2023-02-11] MEDS: NITROGLYCERIN 2% OINTMENT 30GM TUBE EXT SCH ×2 (04:25→10:37)
[2023-02-11] MEDS: dilTIAZem HCL 125 MG in DEXTROSE 5% 100 ML IV SCH ×2 (06:42→16:45)
[2023-02-11 07:11] LABS: Hematocrit (blood only) 43.1 % (37.0-47.0); Hemoglobin 14.5 g/dl (12.0-16.0); Mean Corpuscular Hemoglobin 29.3 pg (25.0-34.0); Mean Corpuscular Hgb Conc 33.6 g/dL (32.0-36.0); Mean Corpuscular Volume 87.1 fL (80.0-100.0); Mean Platelet Volume 9.6 fL (9.4-12.4); Platelet Count 196 K/uL (130-400); RDW Coefficient of Variation 15.4 % (11.5-14.5); RDW Standard Deviation 48.3 fL (36.4-46.3); Red Blood Count 4.95 M/uL (4.20-5.40)
[2023-02-11] MEDS: APIXABAN 5 MG TABLET PO SCH (07:54)
[2023-02-11] MEDS: ATORVASTATIN 40 MG TAB PO SCH (07:54)
[2023-02-11] MEDS: lisinopril 40 MG TAB PO SCH (07:54)
[2023-02-11] MEDS: VITAMIN B COMPLEX TAB PO SCH (07:54)
[2023-02-11] MEDS: NICOTINE 21 MG/24 HR TDSY TD SCH (07:55)
[2023-02-11] MEDS: methIMAzole 5 MG TABLET PO SCH ×3 (07:55→21:00)
[2023-02-11] MEDS: METOPROLOL SUCC 50MG EXT REL TAB PO SCH ×2 (07:56→20:05)
--- NOTE | 2023-02-11 07:56 | Electrocardiogram Report ---
Test Reason : Blood Pressure : / mmHG Vent. Rate : 105 BPM Atrial Rate : 125 BPM P-R Int : 000 ms QRS Dur : 100 ms QT Int : 394 ms P-R-T Axes : 000 109 212 degrees QTc Int : 520 ms Atrial fibrillation with rapid ventricular response Rightward axis Old Septal infarct (cited on or before 09-FEB-2023) Prolonged QT Abnormal ECG When compared with ECG of 10-FEB-2023 05:48, HR has decreased by 36 bpm Otherwise no significant change Confirmed by Karri Schneider ([id number] on 02/11/2023 7:55:41 AM Referred By: Clement Danielle Confirmed By:Karri Schneider
[2023-02-11 08:23] LABS: BUN Creatinine Ratio 26.7 (10-20); Calcium 8.4 mg/dl (8.6-10.3); Creatinine Clr Calc Pharmacy 71.8 ml/min; Est GFR (African American) 102.6 ml/min; Est GFR (Non-African American) 88.5 ml/min; Magnesium 1.5 mg/dl (1.7-2.4); Potassium 3.2 mmol/L (3.5-5.1); Troponin I High Sensitivity 30.8 pg/ml (0-14)
[2023-02-11] MEDS: INSULIN ASPART PER UNIT CHARGE SC SCH ×4 (09:15→20:20)
[2023-02-11] MEDS: CEROVITE ADV FORMULA TAB PO SCH (09:19)
[2023-02-11] MEDS ORDERED: POTASSIUM CHLORIDE CRTAB 20 MEQ TABCR PO STA (09:40)
--- NOTE | 2023-02-11 10:32 | Hospitalist Progress Note ---
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 Permanent atrial fibrillation with RVR secondary to underlying illness Lactic acidosis Nausea, vomiting and left-sided abdominal pain Symptoms of cystitis Admitted to PCU Patient received IVF on admission but still is tachycardic and lactic acid is 4.6-trended down Likely in setting of dehydration due to GI illness along with A-fib On admission on diltiazem drip, was weaned off yesterday however restarted overnight again as HR uncontrolled Continue metoprolol succinate 100 mg twice daily (switched from home tartrate) Continued Eliquis 5 mg twice daily -> plan to start on IV heparin per cardiology so that pt can get urology procedure done as inpt Restarted lisinopril 40 mg daily Po diltiazem stopped Cont. digoxin Lasix prn CT a/p: Revealed left hydroureteronephrosis but no evidence of stone Patient reported left-sided flank pain that radiated around left side with associated nausea and vomiting. The pain has since resolved so wonder if she possibly did pass a stone Obtained urinalysis, ucultx - negative Pt then did not void next day until the evening and now w/ hematuria (also pt on eliquis), UA repeated- ucultx negat. Urology consulted - appreciate their input Blood cultures - negative so far Empirically treating with Rocephin 2 g daily for now (pt recently tx with oral bactrim for kleb UTI pansensitive, pt asymptomatic at the time) Cardiology consulted for afib RVR, HTN urgency Appreciate their input Echo obtained (02/10/23) Per cardiology - Echocardiogram reveals diffuse left ventricular hypokinesis of the apical and mid segments that spares the basal segments, LVEF 30-35%, moderate to severe pulmonary hypertension, PASP 63 m Hg, new compared to 2019- echocardiogram compatible with ischemia or stress induced CM. PLAN: * Oral diltiazem discontinued due to new finding of LV systolic dysfunction. * Plan to wean diltiazem infusion from 15 mg/h to 10 mg/h today as tolerated * digoxin added to metoprolol succinate 100 mg twice daily for rate control * With regards to stroke prophylaxis, I am hesitant to have her off anticoagulation for a prolonged interval of time due to her risk of stroke given ongoing atrial fibrillation and left ventricular systolic dysfunction h owever the patient has been noted to have hematuria. Hemoglobin stable. * Recommend transitioning from Eliquis to unfractioned heparin bridge this evening, 02/11/2023 * Furosemide 20 mg x 1 today 02/11/2023 * Magnesium and potassium supplemented * Change Nitropaste to topical nitro patch for blood pressure control afterload reduction * Continue lisinopril * As noted, patient with longstanding history of hypothyroidism on methimazole 5 mg twice daily with ongoing low TSH, concerns for worsening hyperthyroidism in the setting of recent contrast administration. Agree with titration of methimazole to 10 mg 3 times daily HTN urgency pt bp significantly elevated in ED, likely 2/2 pain, afib and missed meds improved with IV morphine and IV diltiazem CT head obtained given HTN and negative Cont. metoprolol on admission now also resumed home lisinopril IV diltiazem for afib as above Dehydration 2/2 vomiting pt with elevated h/h , baseline 16 hemoconcentrated continue IVF, lactate trended down Hypoxia CTA chest - no PE, spiculated RUL nodule noted which is known to be nsclc, severe emphysema, suspect mild pulm edema with trace b/l pleural effusion likely in setting of afib with RVR continue O2 supplementation likely to resolve once underlying illness improves and HR improves NSCLC, RUL hx of colon ca MGUS recent biopsy to establish with CT surgery next week follows [facility] oncology, to f/u with them regarding tx as well Abnormal CTA Abd/Pelvis . Mild left hydroureteronephrosis with delayed left nephrogram and perinephric fluid. No ureteral calculi. The etiology for this dilatation is not clear on this exam and could be due to a recently passed calculus or an occult stricture/lesion. Urology consultation is recommended. 2. Small nodular density along anterior superior bladder bladder wall which could be assessed with cystoscopy. 3. Extensive aortoiliac atherosclerotic plaque. Ectatic infrarenal abdominal aorta. No dissection. Patent branch vessels within the abdomen. Severe stenosis of the right superficial femoral artery and moderate stenosis of the left superficial femoral artery. 4. Indeterminate 1 cm left renal lesion, suboptimally assessed on this exam. Urology was consulted Pt with severe stenosis of right SFA and mod stenosis of L SFA,will need OP referral to vasc she is on asa and statin Hx of T2DM last a1c 6.2 10/23/22 bsg 162 in ED will follow blood sugar and add correction factor novolog only Tobacco abuse nicotine patch Dvt ppx: Bobby DNR/DNI PCP: Dr. Danielle Admission and Anticipated Discharge Date Admission Date: February 08, 2023 Subjective Pt seen in follow up of Afib, RVR, hypoxia, flank pain, n/v Currently laying in bed, in NAD, and reports feeling much better Denies any abd. pain Continues to have tea-colored urine Feels hungry and would like to have food - will advance diet Currently on 2L of suppl. O2 No fever, or chills HR also now improved - and Cardiology following closely Review of Systems Review of Systems: All systems reviewed & are unremarkable except as noted in Subjective Physical Exam Physical Exam: Constitutional: WD/WN, ill appearing, elderly, Fin NAD Head: Normocephalic, Atraumatic Eyes: PERRL, conjunctivae normal, anicteric sclerae ENMT: external ear and nose normal, oropharynx normal Neck: normal visual inspection Respiratory: normal respiratory effort, +rhonchi, no wheeze Cardiovascular: IRR/IRR, tachycardic, no murmur, no edema Chest: normal inspection of chest Abdomen: normal bowel sounds, soft, nontender Musculoskeletal:moves extremities Skin: no rashes, warm and dry normal turgor Neuro/Psych: A+Ox3, PERRL, EOMI, no face palsy, no dysarthria, moves all extremities Results & Data Results & Data Vital Signs (Past 12 Hours) Vital Signs Temp Pulse Pulse Resp BP Pulse Ox O2 Del Method 02/11/23 08:00 Nasal Cannula 02/11/23 07:16 99 H 02/11/23 06:26 81 02/11/23 05:34 111 H 02/11/23 02:30 109 H 07/23/23 03:00 83 02/11/23 03:47 36.7 C 76 20 145/90 H 93 Nasal Cannula 02/10/23 22:43 93 H 02/11/23 00:30 98 H 02/11/23 01:54 101 H 02/10/23 23:22 92 H 02/10/23 22:56 77 02/10/23 23:51 36.7 C 94 H 21 167/55 H 93 Nasal Cannula O2 Flow Rate 02/11/23 08:00 7 02/11/23 07:16 02/11/23 06:26 02/11/23 05:34 02/11/23 02:30 02/11/23 03:00 02/11/23 03:47 5 02/10/23 22:43 02/11/23 00:30 02/11/23 01:54 02/10/23 23:22 02/10/23 22:56 02/10/23 23:51 5 Laboratory Results 02/11/23 02/11/23 02/11/23 Range/Units 07:19 06:19 06:19 WBC 10.70 (4.8-10.8) K/ul RBC 4.95 (4.20-5.40) M/uL Hgb 14.5 (12.0-16.0) g/dl Hct 43.1 (37.0-47.0) % MCV 87.1 (80.0-100.0) fL MCH 29.3 (25.0-34.0) pg MCHC 33.6 (32.0-36.0) g/dL RDW Std Deviation 48.3 H (36.4-46.3) fL RDW Coeff of Anjali 15.4 H (11.5-14.5) % Plt Count 196 (130-400) K/uL MPV 9.6 (9.4-12.4) fL Sodium 140 (136-145) mmol/L Potassium 3.2 L D (3.5-5.1) mmol/L Chloride 107 (98-107) mmol/L Carbon Dioxide 23 (21-32) mmol/L Anion Gap 10 (3-11) BUN 16 (6-23) mg/dl Creatinine 0.60 (0.6-1.2) mg/dl Est Cr Clr Drug Dosing 71.8 ml/min Est GFR ( Amer) 102.6 ml/min Est GFR (Non-Af Amer) 88.5 ml/min BUN/Creatinine Ratio 26.7 H (10-20) Glucose 114 H (70-99(Fasting)) mg/dl POC Glucose 115 H (70-99) mg/dl Calcium 8.4 L (8.6-10.3) mg/dl Phosphorus 2.0 L (2.5-4.9) mg/dl Magnesium 1.5 L (1.7-2.4) mg/dl Troponin I High Sens 30.8 H (0-14) pg/ml Urine Color Urine Appearance (Clear) Urine pH (4.5-7.5) Ur Specific Lupton (1.000-1.030) Urine Protein (Negative) Urine Glucose (UA) (Negative) Urine Ketones (Negative) Urine Blood (Negative) Urine Nitrite (Negative) Urine Bilirubin (Negative) Urine Urobilinogen (Negative) Ur Leukocyte Esterase (Negative) Urine RBC (0-4) /hpf Urine WBC (0-5) /hpf Ur Epithelial Cells (0-5) /lpf Urine Bacteria (Negative) 02/10/23 02/10/23 02/10/23 Range/Units 20:00 16:30 15:01 WBC (4.8-10.8) K/ul RBC (4.20-5.40) M/uL Hgb (12.0-16.0) g/dl Hct (37.0-47.0) % MCV (80.0-100.0) fL MCH (25.0-34.0) pg MCHC (32.0-36.0) g/dL RDW Std Deviation (36.4-46.3) fL RDW Coeff of Anjali (11.5-14.5) % Plt Count (130-400) K/uL MPV (9.4-12.4) fL Sodium (136-145) mmol/L Potassium (3.5-5.1) mmol/L Chloride (98-107) mmol/L Carbon Dioxide (21-32) mmol/L Anion Gap (3-11) BUN (6-23) mg/dl Creatinine (0.6-1.2) mg/dl Est Cr Clr Drug Dosing ml/min Est GFR ( Amer) ml/min Est GFR (Non-Af Amer) ml/min BUN/Creatinine Ratio (10-20) Glucose (70-99(Fasting)) mg/dl POC Glucose 134 H 122 H (70-99) mg/dl Calcium (8.6-10.3) mg/dl Phosphorus (2.5-4.9) mg/dl Magnesium (1.7-2.4) mg/dl Troponin I High Sens 40.7 H (0-14) pg/ml Urine Color Urine Appearance (Clear) Urine pH (4.5-7.5) Ur Specific Lupton (1.000-1.030) Urine Protein (Negative) Urine Glucose (UA) (Negative) Urine Ketones (Negative) Urine Blood (Negative) Urine Nitrite (Negative) Urine Bilirubin (Negative) Urine Urobilinogen (Negative) Ur Leukocyte Esterase (Negative) Urine RBC (0-4) /hpf Urine WBC (0-5) /hpf Ur Epithelial Cells (0-5) /lpf Urine Bacteria (Negative) 02/10/23 02/10/23 Range/Units 11:17 11:15 WBC (4.8-10.8) K/ul RBC (4.20-5.40) M/uL Hgb (12.0-16.0) g/dl Hct (37.0-47.0) % MCV (80.0-100.0) fL MCH (25.0-34.0) pg MCHC (32.0-36.0) g/dL RDW Std Deviation (36.4-46.3) fL RDW Coeff of Anjali (11.5-14.5) % Plt Count (130-400) K/uL MPV (9.4-12.4) fL Sodium (136-145) mmol/L Potassium (3.5-5.1) mmol/L Chloride (98-107) mmol/L Carbon Dioxide (21-32) mmol/L Anion Gap (3-11) BUN (6-23) mg/dl Creatinine (0.6-1.2) mg/dl Est Cr Clr Drug Dosing ml/min Est GFR ( Amer) ml/min Est GFR (Non-Af Amer) ml/min BUN/Creatinine Ratio (10-20) Glucose (70-99(Fasting)) mg/dl POC Glucose 146 H (70-99) mg/dl Calcium (8.6-10.3) mg/dl Phosphorus (2.5-4.9) mg/dl Magnesium (1.7-2.4) mg/dl Troponin I High Sens (0-14) pg/ml Urine Color Brown Urine Appearance Cloudy A (Clear) Urine pH 5.5 (4.5-7.5) Ur Specific Lupton >= 1.030 (1.000-1.030) Urine Protein 3+ H (Negative) Urine Glucose (UA) Negative (Negative) Urine Ketones Trace H (Negative) Urine Blood 3+ H (Negative) Urine Nitrite Negative (Negative) Urine Bilirubin 1+ H (Negative) Urine Urobilinogen Negative (Negative) Ur Leukocyte Esterase Negative (Negative) Urine RBC >30 H (0-4) /hpf Urine WBC >30 H (0-5) /hpf Ur Epithelial Cells 0-5 (0-5) /lpf Urine Bacteria 1+ H (Negative) Medications Administered Current Inpatient Medications Acetaminophen (Acetaminophen 325 Mg Tab) 650 mg PO Q4H PRN PRN Reason: Pain or Fever Stop: 03/10/23 18:18 Apixaban (Apixaban 5 Mg Tablet) 5 mg PO BID CHERRY Stop: 03/10/23 20:59 Last Admin: 02/11/23 07:54 Dose: 5 mg Aspirin (Aspirin 81 Mg Ectab) 81 mg PO HS CHERRY Stop: 03/10/23 20:59 Last Admin: 02/10/23 20:01 Dose: 81 mg Atorvastatin Calcium (Atorvastatin 40 Mg Tab) 40 mg PO QAM CHERRY Stop: 03/11/23 08:59 Last Admin: 02/11/23 07:54 Dose: 40 mg Dextrose (Dextrose 50% 50 Ml Syringe) 25 - 50 ml IV UD PRN; Protocol PRN Reason: Hypoglycemia Protocol Stop: 03/10/23 18:18 Fish Oil (Linden-3 (Purified Fish Oil) 1 Gm Cap) 1 gm PO QPM CHERRY Stop: 03/10/23 20:59 Last Admin: 02/10/23 20:01 Dose: 1 gm Glucagon (Glucagon For Inj 1 Mg Vial) 1 mg SQ UD PRN; Protocol PRN Reason: Hypoglycemia Protocol Stop: 03/10/23 18:18 Glucose (Glucose 10 Tab/Tube) 4 - 8 tab PO UD PRN; Protocol PRN Reason: Hypoglycemia Treatment Stop: 03/10/23 18:18 Glucose (Glucose 40% Gel 15 Gm Tube) 15 - 30 gm PO UD PRN; Protocol PRN Reason: Hypoglycemia Protocol Stop: 03/10/23 18:18 Ceftriaxone Sodium 2,000 mg/ (Dextrose) 70 mls @ 100 mls/hr IV Q24H [facility]; Protocol Stop: 02/18/23 18:59 Last Infusion: 02/10/23 19:55 Dose: Infused Diltiazem HCl 125 mg/ Dextrose 125 mls @ 15 mls/hr IV .[id number] [facility]; Protocol Stop: 03/12/23 04:44 Last Admin: 02/11/23 06:42 Dose: 15 mg/hr, 15 mls/hr Insulin Aspart (Insulin Aspart Per Unit Charge) 0 units SC ACHS [facility] Stop: 03/10/23 20:59 Last Admin: 02/11/23 09:15 Dose: Not Given Lisinopril (Lisinopril 40 Mg Tab) 40 mg PO QAM [facility] Stop: 03/11/23 10:14 Last Admin: 02/11/23 07:54 Dose: 40 mg Magnesium Oxide (Magnesium Oxide 400 Mg Tab) 400 mg PO BID [facility] Stop: 03/13/23 09:59 Methimazole (Methimazole 5 Mg Tablet) 10 mg PO TID [facility] Stop: 03/12/23 13:59 Last Admin: 02/11/23 07:55 Dose: 10 mg Metoprolol Succinate (Metoprolol Succ 50mg Ext Rel Tab) 100 mg PO BID [facility] Stop: 03/11/23 20:59 Last Admin: 02/11/23 07:56 Dose: 100 mg Metoprolol Tartrate (Metoprolol Tartrate 1 Mg/Ml Vial) 5 mg IV Q6 PRN PRN Reason: Tachycardia Stop: 03/11/23 11:59 Last Admin: 02/10/23 01:05 Dose: 5 mg Miscellaneous (Remove Nicoderm Patch) 1 each N/A DAILY@0859 [facility] Stop: 03/11/23 08:58 Last Admin: 02/11/23 07:56 Dose: 1 each Miscellaneous (Carbohydrates For Hypoglycemia ) 15 - 30 gm PO UD PRN PRN Reason: Hypoglycemia Protocol Stop: 03/10/23 18:18 Multivitamins/Minerals (Cerovite Adv Formula Tab) 1 tab PO DAILY [facility] Stop: 03/11/23 08:59 Last Admin: 02/11/23 09:19 Dose: 1 tab Nicotine (Nicotine 21 Mg/24 Hr Tdsy) 21 mg TD QAM [facility] Stop: 03/10/23 18:18 Last Admin: 02/11/23 07:55 Dose: 21 mg Nitroglycerin (Nitroglycerin 2% Ointment 30gm Tube) 0.5 inch EXT Q6H [facility] Stop: 03/12/23 10:44 Last Admin: 02/11/23 04:25 Dose: 0.5 inch Ondansetron HCl (Ondansetron Inj 2 Mg/Ml 2 Ml Vial) 4 mg IV Q6H PRN PRN Reason: Nausea Stop: 03/10/23 18:18 Polyethylene Glycol (Polyethylene (Miralax) 17 Gm Pack) 17 gm PO DAILY PRN PRN Reason: Constipation Stop: 03/10/23 18:18 Potassium Chloride (Potassium Chloride Crtab 20 Meq Tabcr) 20 meq PO QPM [facility]Y Stop: 03/10/23 20:59 Last Admin: 02/10/23 20:02 Dose: 20 meq Vitamin B Complex (Vitamin B Complex Tab) 1 tab PO DAILY [facility] Stop: 03/11/23 08:59 Last Admin: 02/11/23 07:54 Dose: 1 tab
[2023-02-11] MEDS: MAGNESIUM OXIDE 400 MG TAB PO SCH ×2 (10:34→20:59)
[2023-02-11] MEDS ORDERED: FUROSEMIDE INJ 20 MG/2 ML VIAL IV ONE (12:04)
[2023-02-11] MEDS ORDERED: DIGOXIN 0.125 MG TAB PO ONE (12:15)
[2023-02-11] MEDS: NITROGLYCERIN 0.4 MG/HR PATCH TD SCH (12:30)
[2023-02-11] MEDS ORDERED: POTASSIUM CHLORIDE CRTAB 20 MEQ TABCR PO ONE (16:00)
--- NOTE | 2023-02-11 16:30 | Cardiology Progress Note ---
Date of Service February 11, 2023 Assessment & Plan (1) Permanent atrial fibrillation with RVR: Plan: Patient presented 02/08/2023 with complaints of abdominal pain and shortness of breath. Patient with history of permanent atrial fibrillation, however presented with elevated ventricular rates, and rapid ventricular rate prompted addition of IV diltiazem in the [place] studies director hours of 02/10/2023. Echocardiogram r performed 02/10/2023 revealed diffuse left ventricular hypokinesis of the apical and mid segments that spares the basal segments, LVEF 30-35%, moderate to severe pulmonary hypertension, PASP 63 m Hg, new compared to 2019- echocardiogram compatible with ischemia or stress induced CM. Patient reports significant subjective improvement today 02/11/2023 as compared to 02/10/2023 PLAN: * Oral diltiazem discontinued due to new finding of LV systolic dysfunction. * Plan to wean diltiazem infusion from 15 mg/h to 10 mg/h today as tolerated * digoxin added to metoprolol succinate 100 mg twice daily for rate control * With regards to stroke prophylaxis, I am hesitant to have her off anticoagulation for a prolonged interval of time due to her risk of stroke given ongoing atrial fibrillation and left ventricular systolic dysfunction however the patient has been noted to have hematuria. Hemoglobin stable. * Recommend transitioning from Eliquis to unfractioned heparin bridge this evening, 02/11/2023 * Furosemide 20 mg x 1 today 02/11/2023 * Magnesium and potassium supplemented * Change Nitropaste to topical nitro patch for blood pressure control afterload reduction * Continue lisinopril * As noted, patient with longstanding history of hypothyroidism on methimazole 5 mg twice daily with ongoing low TSH, concerns for worsening hyperthyroidism in the setting of recent contrast administration. Agree with titration of methimazole to 10 mg 3 times daily Continue Rocephin for possible UTI or pneumonia-urine studies negative thus far. Also patient is noted to have ongoing hyperthyroidism with low TSH this admission. Had CT of chest with contrast this admission with may have precipitated worsening thyroid dysfunction. I would consider increasing her chronic methimazole dose from 5 mg TID to 10 mg TID. Case discussed with Dr Voss. Admission and Anticipated Discharge Date Admission Date: February 08, 2023 Subjective Patient seen in cardiology follow-up. Notes significant improvement since yesterday. At the time my initial assessment, patient had been on oxygen supplementation at 3 L/min which had been titrated up to 7 L/min transiently and is now down to 2 L/min. Atrial fibrillation noted on telemetry with rates that are much improved. Dyspnea improved. Physical Exam Constitutional: + thin; no acute distress Respiratory: normal respiratory effort, lungs clear to auscultation Cardiovascular: Rate/Rhythm: + tachycardic; not irregularly irregular Heart Sounds: normal S1 and normal S2; no murmur Vessels: no JVD Extremities: no edema Gastrointestinal (Abdomen): normal bowel sounds, soft, nontender, no hepatosplenomegaly Neurologic: PERRL, EOMI, accommodation nl, no face palsy, no dysarthria Results & Data Vital Signs (Past 12 Hours) Vital Signs Temp Pulse Pulse Resp BP Pulse Ox O2 Del Method 02/11/23 12:31 89 02/11/23 11:36 36.7 C 93 H 18 160/80 H 94 Nasal Cannula 02/11/23 08:00 36.4 C L 85 20 154/92 H 93 Nasal Cannula 02/11/23 08:00 Nasal Cannula 02/11/23 07:16 99 H 02/11/23 06:26 81 02/11/23 05:34 111 H O2 Flow Rate 02/11/23 12:31 02/11/23 11:36 2 02/11/23 08:00 2 02/11/23 08:00 7 02/11/23 07:16 02/11/23 06:26 02/11/23 05:34 Laboratory Results Cardiac Enzymes 02/11/23 Range/Units 06:19 Troponin I High Sens 30.8 H (0-14) pg/ml CBC 02/11/23 Range/Units 06:19 WBC 10.70 (4.8-10.8) K/ul RBC 4.95 (4.20-5.40) M/uL Hgb 14.5 (12.0-16.0) g/dl Hct 43.1 (37.0-47.0) % Plt Count 196 (130-400) K/uL Comprehensive Metabolic Panel 02/11/23 Range/Units 06:19 Sodium 140 (136-145) mmol/L Potassium 3.2 L D (3.5-5.1) mmol/L Chloride 107 (98-107) mmol/L Carbon Dioxide 23 (21-32) mmol/L BUN 16 (6-23) mg/dl Creatinine 0.60 (0.6-1.2) mg/dl Glucose 114 H (70-99(Fasting)) mg/dl Calcium 8.4 L (8.6-10.3) mg/dl
[2023-02-11] MEDS: cefTRIAXone SODIUM 2,000 MG in DEXTROSE 5% 50 ML IV SCH (18:10)
[2023-02-11 20:42] LABS: Partial Thromboplastin Ratio 0.9; Partial Thromboplastin Time 25.9 Seconds (21.0-31.0)
[2023-02-11] MEDS ORDERED: Heparin IV Adult Wt-Based Standard *NO* Bolus Protocol IV ONE (21:00)
[2023-02-11] MEDS: POTASSIUM CHLORIDE CRTAB 20 MEQ TABCR PO SCH (21:00)
[2023-02-11] MEDS ORDERED: HEPARIN SODIUM/DEXTROSE 25,000 UNITS/500 ML BAG IV SCH (21:00)
[2023-02-11] MEDS: ASPIRIN 81 MG ECTAB PO SCH (21:00)
[2023-02-11] MEDS: OMEGA-3 (PURIFIED FISH OIL) 1 GM CAP PO SCH (21:00)
[2023-02-12 03:29] LABS: Hemoglobin 14.5 g/dl (12.0-16.0); Mean Corpuscular Hemoglobin 28.8 pg (25.0-34.0); Mean Corpuscular Hgb Conc 33.7 g/dL (32.0-36.0); Mean Corpuscular Volume 85.3 fL (80.0-100.0); Mean Platelet Volume 9.7 fL (9.4-12.4); Platelet Count 209 K/uL (130-400); RDW Coefficient of Variation 15.1 % (11.5-14.5); RDW Standard Deviation 46.5 fL (36.4-46.3); Red Blood Count 5.04 M/uL (4.20-5.40); White Blood Count 8.74 K/ul (4.8-10.8)
[2023-02-12 03:45] LABS: Albumin Globulin Ratio 1.4 (0.9-2); Albumin Level 3.2 gm/dl (3.4-5.0); BUN Creatinine Ratio 22.7 (10-20); Bilirubin,Total 0.8 mg/dl (0.2-1.0); Calcium 8.3 mg/dl (8.6-10.3); Creatinine Clr Calc Pharmacy 65.3 ml/min; Est GFR (African American) 99.5 ml/min; Est GFR (Non-African American) 85.8 ml/min; Globulin 2.3 gm/dl (2.5-4.0); Magnesium 1.8 mg/dl (1.7-2.4); Potassium 3.5 mmol/L (3.5-5.1); Total Protein 5.5 gm/dl (6.0-8.3)
[2023-02-12 04:14] LABS: Partial Thromboplastin Ratio 1.9
[2023-02-12 04:27] LABS: Partial Thromboplastin Time 52.2 Seconds (21.0-31.0)
[2023-02-12] MEDS: INSULIN ASPART PER UNIT CHARGE SC SCH ×4 (08:43→20:16)
[2023-02-12] MEDS: methIMAzole 5 MG TABLET PO SCH ×3 (08:44→21:09)
[2023-02-12] MEDS: MAGNESIUM OXIDE 400 MG TAB PO SCH ×2 (08:45→21:09)
[2023-02-12] MEDS: METOPROLOL SUCC 50MG EXT REL TAB PO SCH ×2 (08:45→20:08)
[2023-02-12] MEDS: ATORVASTATIN 40 MG TAB PO SCH (08:45)
[2023-02-12] MEDS: NICOTINE 21 MG/24 HR TDSY TD SCH (08:46)
[2023-02-12] MEDS: CEROVITE ADV FORMULA TAB PO SCH (08:46)
[2023-02-12] MEDS: lisinopril 40 MG TAB PO SCH (08:46)
[2023-02-12] MEDS: VITAMIN B COMPLEX TAB PO SCH (08:46)
[2023-02-12] MEDS ORDERED: POTASSIUM CHLORIDE CRTAB 20 MEQ TABCR PO STA (08:48)
--- NOTE | 2023-02-12 08:53 | Hospitalist Progress Note ---
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 Permanent atrial fibrillation with RVR secondary to underlying illness Lactic acidosis Nausea, vomiting and left-sided abdominal pain Symptoms of cystitis Admitted to PCU Patient received IVF on admission but still is tachycardic and lactic acid is 4.6-trended down Likely in setting of dehydration due to GI illness along with A-fib On admission on diltiazem drip, was weaned off yesterday however restarted overnight again as HR uncontrolled Continue metoprolol succinate 100 mg twice daily (switched from home tartrate) Continued Eliquis 5 mg twice daily -> switched to IV heparin per cardiology so that pt could get urology procedure done as inpt. heparin now stopped d/t gross hematuria Restarted lisinopril 40 mg daily Po diltiazem stopped Cont. digoxin Nitropaste, hydralazine Lasix prn CT a/p: Revealed left hydroureteronephrosis but no evidence of stone Patient reported left-sided flank pain that radiated around left side with associated nausea and vomiting. The pain has since resolved so wonder if she possibly did pass a stone Obtained urinalysis, ucultx - negative Pt then did not void next day until the evening and now w/ hematuria (also pt on eliquis), UA repeated- ucultx negat. Urology consulted - appreciate their input Blood cultures - negative so far Empirically treating with Rocephin 2 g daily for now (pt recently tx with oral bactrim for kleb UTI pansensitive, pt asymptomatic at the time) Cardiology consulted for afib RVR, HTN urgency Appreciate their input Echo obtained (02/10/23) Per cardiology - Echocardiogram reveals diffuse left ventricular hypokinesis of the apical and mid segments that spares the basal segments, LVEF 30-35%, moderate to severe pulmonary hypertension, PASP 63 m Hg, new compared to 2019- echocardiogram compatible with ischemia or stress induced CM. HTN urgency pt bp significantly elevated in ED, likely 2/2 pain, afib and missed meds improved with IV morphine and IV diltiazem CT head obtained given HTN and negative Cont. metoprolol on admission now also resumed home lisinopril IV diltiazem for afib as above Nitropaste, hydralazine Dehydration 2/2 vomiting pt with elevated h/h , baseline 16 hemoconcentrated continue IVF, lactate trended down Hypoxia CTA chest - no PE, spiculated RUL nodule noted which is known to be nsclc, severe emphysema, suspect mild pulm edema with trace b/l pleural effusion likely in setting of afib with RVR continue O2 supplementation likely to resolve once underlying illness improves and HR improves NSCLC, RUL hx of colon ca MGUS recent biopsy to establish with CT surgery next week follows [facility] oncology, to f/u with them regarding tx as well Abnormal CTA Abd/Pelvis . Mild left hydroureteronephrosis with delayed left nephrogram and perinephric fluid. No ureteral calculi. The etiology for this dilatation is not clear on this exam and could be due to a recently passed calculus or an occult stricture/lesion. Urology consultation is recommended. 2. Small nodular density along anterior superior bladder bladder wall which could be assessed with cystoscopy. 3. Extensive aortoiliac atherosclerotic plaque. Ectatic infrarenal abdominal aorta. No dissection. Patent branch vessels within the abdomen. Severe stenosis of the right superficial femoral artery and moderate stenosis of the left superficial femoral artery. 4. Indeterminate 1 cm left renal lesion, suboptimally assessed on this exam. Urology was consulted - plans to follow up as outpt Pt with severe stenosis of right SFA and mod stenosis of L SFA,will need OP referral to vasc she is on asa and statin Hx of T2DM last a1c 6.2 10/23/22 bsg 162 in ED will follow blood sugar and add correction factor novolog only Tobacco abuse nicotine patch Dvt ppx: Eliquis _> iv heparin, now on hold d/t hematuria DNR/DNI PCP: Dr. Danielle Admission and Anticipated Discharge Date Admission Date: February 08, 2023 Subjective Pt seen in follow up of Afib, RVR, hypoxia, flank pain, n/v Currently laying in bed, in NAD, and reports improved breathing. However overnight, patient developed janis hematuria. Previously had tea colored urine no janis red bloody urine. Urology contacted. Denies any abd. pain Currently on RA No fever, or chills HR also now improved - and Cardiology following closely Review of Systems Review of Systems: All systems reviewed & are unremarkable except as noted in Subjective Physical Exam Physical Exam: Constitutional: WD/WN, ill appearing, elderly, Fin NAD Head: Normocephalic, Atraumatic Eyes: PERRL, conjunctivae normal, anicteric sclerae ENMT: external ear and nose normal, oropharynx normal Neck: normal visual inspection Respiratory: normal respiratory effort, +rhonchi, no wheeze Cardiovascular: IRR/IRR, no murmur, no edema Chest: normal inspection of chest Abdomen: normal bowel sounds, soft, nontender Musculoskeletal:moves extremities Skin: no rashes, warm and dry normal turgor Neuro/Psych: A+Ox3, PERRL, EOMI, no face palsy, no dysarthria, moves all extremities Results & Data Results & Data Vital Signs (Past 12 Hours) Vital Signs Temp Pulse Pulse Resp BP Pulse Ox O2 Del Method 02/12/23 07:27 36.7 C 69 18 159/94 H 95 Nasal Cannula 02/12/23 00:00 74 02/12/23 01:15 101 H 02/12/23 03:30 87 02/12/23 04:39 90 02/11/23 22:43 95 H 02/12/23 02:38 36.7 C 61 18 142/99 H 94 Nasal Cannula 02/11/23 23:09 36.6 C 82 18 136/88 95 Nasal Cannula O2 Flow Rate 02/12/23 07:27 2 02/12/23 00:00 02/12/23 01:15 02/12/23 03:30 02/12/23 04:39 02/11/23 22:43 02/12/23 02:38 02/11/23 23:09 Laboratory Results 02/12/23 02/12/23 02/12/23 Range/Units 07:12 03:10 03:10 WBC 8.74 (4.8-10.8) K/ul RBC 5.04 (4.20-5.40) M/uL Hgb 14.5 (12.0-16.0) g/dl Hct 43.0 (37.0-47.0) % MCV 85.3 (80.0-100.0) fL MCH 28.8 (25.0-34.0) pg MCHC 33.7 (32.0-36.0) g/dL RDW Std Deviation 46.5 H (36.4-46.3) fL RDW Coeff of Anjali 15.1 H (11.5-14.5) % Plt Count 209 (130-400) K/uL MPV 9.7 (9.4-12.4) fL APTT (21.0-31.0) Seconds PTT Ratio Sodium 139 (136-145) mmol/L Potassium 3.5 (3.5-5.1) mmol/L Chloride 106 (98-107) mmol/L Carbon Dioxide 27 (21-32) mmol/L Anion Gap 6 (3-11) BUN 15 (6-23) mg/dl Creatinine 0.66 (0.6-1.2) mg/dl Est Cr Clr Drug Dosing 65.3 ml/min Est GFR ( Amer) 99.5 ml/min Est GFR (Non-Af Amer) 85.8 ml/min BUN/Creatinine Ratio 22.7 H (10-20) Glucose 110 H (70-99(Fasting)) mg/dl POC Glucose 116 H (70-99) mg/dl Calcium 8.3 L (8.6-10.3) mg/dl Magnesium 1.8 (1.7-2.4) mg/dl Total Bilirubin 0.8 (0.2-1.0) mg/dl AST 20 (13-39) U/L ALT 18 (7-52) U/L Alkaline Phosphatase 91 (34-104) U/L Total Protein 5.5 L (6.0-8.3) gm/dl Albumin 3.2 L (3.4-5.0) gm/dl Globulin 2.3 L (2.5-4.0) gm/dl Albumin/Globulin Ratio 1.4 (0.9-2) 02/12/23 02/11/23 02/11/23 Range/Units 03:10 20:07 19:49 WBC (4.8-10.8) K/ul RBC (4.20-5.40) M/uL Hgb (12.0-16.0) g/dl Hct (37.0-47.0) % MCV (80.0-100.0) fL MCH (25.0-34.0) pg MCHC (32.0-36.0) g/dL RDW Std Deviation (36.4-46.3) fL RDW Coeff of Anjali (11.5-14.5) % Plt Count (130-400) K/uL MPV (9.4-12.4) fL APTT 52.2 H* 25.9 (21.0-31.0) Seconds PTT Ratio 1.9 0.9 Sodium (136-145) mmol/L Potassium (3.5-5.1) mmol/L Chloride (98-107) mmol/L Carbon Dioxide (21-32) mmol/L Anion Gap (3-11) BUN (6-23) mg/dl Creatinine (0.6-1.2) mg/dl Est Cr Clr Drug Dosing ml/min Est GFR ( Amer) ml/min Est GFR (Non-Af Amer) ml/min BUN/Creatinine Ratio (10-20) Glucose (70-99(Fasting)) mg/dl POC Glucose 108 H (70-99) mg/dl Calcium (8.6-10.3) mg/dl Magnesium (1.7-2.4) mg/dl Total Bilirubin (0.2-1.0) mg/dl AST (13-39) U/L ALT (7-52) U/L Alkaline Phosphatase (34-104) U/L Total Protein (6.0-8.3) gm/dl Albumin (3.4-5.0) gm/dl Globulin (2.5-4.0) gm/dl Albumin/Globulin Ratio (0.9-2) 02/11/23 02/11/23 Range/Units 16:26 11:23 WBC (4.8-10.8) K/ul RBC (4.20-5.40) M/uL Hgb (12.0-16.0) g/dl Hct (37.0-47.0) % MCV (80.0-100.0) fL MCH (25.0-34.0) pg MCHC (32.0-36.0) g/dL RDW Std Deviation (36.4-46.3) fL RDW Coeff of Anjali (11.5-14.5) % Plt Count (130-400) K/uL MPV (9.4-12.4) fL APTT (21.0-31.0) Seconds PTT Ratio Sodium (136-145) mmol/L Potassium (3.5-5.1) mmol/L Chloride (98-107) mmol/L Carbon Dioxide (21-32) mmol/L Anion Gap (3-11) BUN (6-23) mg/dl Creatinine (0.6-1.2) mg/dl Est Cr Clr Drug Dosing ml/min Est GFR ( Amer) ml/min Est GFR (Non-Af Amer) ml/min BUN/Creatinine Ratio (10-20) Glucose (70-99(Fasting)) mg/dl POC Glucose 136 H 112 H (70-99) mg/dl Calcium (8.6-10.3) mg/dl Magnesium (1.7-2.4) mg/dl Total Bilirubin (0.2-1.0) mg/dl AST (13-39) U/L ALT (7-52) U/L Alkaline Phosphatase (34-104) U/L Total Protein (6.0-8.3) gm/dl Albumin (3.4-5.0) gm/dl Globulin (2.5-4.0) gm/dl Albumin/Globulin Ratio (0.9-2) Medications Administered Current Inpatient Medications Acetaminophen (Acetaminophen 325 Mg Tab) 650 mg PO Q4H PRN PRN Reason: Pain or Fever Stop: 03/10/23 18:18 Aspirin (Aspirin 81 Mg Ectab) 81 mg PO HS [facility] Stop: 03/10/23 20:59 Last Admin: 02/11/23 21:00 Dose: 81 mg Atorvastatin Calcium (Atorvastatin 40 Mg Tab) 40 mg PO QAM [facility] Stop: 03/11/23 08:59 Last Admin: 02/12/23 08:45 Dose: 40 mg Dextrose (Dextrose 50% 50 Ml Syringe) 25 - 50 ml IV UD PRN; Protocol PRN Reason: Hypoglycemia Protocol Stop: 03/10/23 18:18 Digoxin (Digoxin 0.125 Mg Tab) 0.125 mg PO DAILY@1600 [facility] Stop: 03/14/23 15:59 Fish Oil ([place]-3 (Purified Fish Oil) 1 Gm Cap) 1 gm PO QPM [facility] Stop: 03/10/23 20:59 Last Admin: 02/11/23 21:00 Dose: 1 gm Glucagon (Glucagon For Inj 1 Mg Vial) 1 mg SQ UD PRN; Protocol PRN Reason: Hypoglycemia Protocol Stop: 03/10/23 18:18 Glucose (Glucose 10 Tab/Tube) 4 - 8 tab PO UD PRN; Protocol PRN Reason: Hypoglycemia Treatment Stop: 03/10/23 18:18 Glucose (Glucose 40% Gel 15 Gm Tube) 15 - 30 gm PO UD PRN; Protocol PRN Reason: Hypoglycemia Protocol Stop: 03/10/23 18:18 Ceftriaxone Sodium 2,000 mg/ (Dextrose) 70 mls @ 100 mls/hr IV Q24H [facility]; Protocol Stop: 02/18/23 18:59 Last Infusion: 02/11/23 19:10 Dose: Infused Diltiazem HCl 125 mg/ Dextrose 125 mls @ 7.5 mls/hr IV .[id number] [facility]; Protocol Stop: 03/12/23 04:44 Last Titration: 02/11/23 17:45 Dose: 7.5 mg/hr, 7.5 mls/hr Heparin Sodium/Dextrose (Heparin Sodium/Dextrose) 25,000 units in 500 mls @ 21 mls/hr IV .[id number] [facility]; Protocol Stop: 03/13/23 20:59 Last Admin: 02/11/23 20:54 Dose: 1,050 units/hr, 21 mls/hr Insulin Aspart (Insulin Aspart Per Unit Charge) 0 units SC ACHS [facility] Stop: 03/10/23 20:59 Last Admin: 02/12/23 08:43 Dose: Not Given Lisinopril (Lisinopril 40 Mg Tab) 40 mg PO QAM [facility] Stop: 03/11/23 10:14 Last Admin: 02/12/23 08:46 Dose: 40 mg Magnesium Oxide (Magnesium Oxide 400 Mg Tab) 400 mg PO BID [facility] Stop: 03/13/23 09:59 Last Admin: 02/12/23 08:45 Dose: 400 mg Methimazole (Methimazole 5 Mg Tablet) 10 mg PO TID [facility] Stop: 03/12/23 13:59 Last Admin: 02/12/23 08:44 Dose: 10 mg Metoprolol Succinate (Metoprolol Succ 50mg Ext Rel Tab) 100 mg PO BID [facility] Stop: 03/11/23 20:59 Last Admin: 02/12/23 08:45 Dose: 100 mg Metoprolol Tartrate (Metoprolol Tartrate 1 Mg/Ml Vial) 5 mg IV Q6 PRN PRN Reason: Tachycardia Stop: 03/11/23 11:59 Last Admin: 02/10/23 01:05 Dose: 5 mg Miscellaneous (Remove Nicoderm Patch) 1 each N/A DAILY@0859 [facility] Stop: 03/11/23 08:58 Last Admin: 02/12/23 08:46 Dose: 1 each Miscellaneous (Carbohydrates For Hypoglycemia ) 15 - 30 gm PO UD PRN PRN Reason: Hypoglycemia Protocol Stop: 03/10/23 18:18 Miscellaneous (Remove Nitro-Dur Patch) 1 each N/A DAILY@2100 [facility] Stop: 03/13/23 20:59 Last Admin: 02/11/23 21:03 Dose: 1 each Multivitamins/Minerals (Cerovite Adv Formula Tab) 1 tab PO DAILY [facility] Stop: 03/11/23 08:59 Last Admin: 02/12/23 08:46 Dose: 1 tab Nicotine (Nicotine 21 Mg/24 Hr Tdsy) 21 mg TD QAM [facility] Stop: 03/10/23 18:18 Last Admin: 02/12/23 08:46 Dose: 21 mg Nitroglycerin (Nitroglycerin 0.4 Mg/Hr Patch) 1 patch TD QAM [facility] Stop: 03/13/23 12:14 Last Admin: 02/11/23 12:30 Dose: 1 patch Ondansetron HCl (Ondansetron Inj 2 Mg/Ml 2 Ml Vial) 4 mg IV Q6H PRN PRN Reason: Nausea Stop: 03/10/23 18:18 Polyethylene Glycol (Polyethylene (Miralax) 17 Gm Pack) 17 gm PO DAILY PRN PRN Reason: Constipation Stop: 03/10/23 18:18 Potassium Chloride (Potassium Chloride Crtab 20 Meq Tabcr) 20 meq PO QPM [facility] Stop: 03/10/23 20:59 Last Admin: 02/11/23 21:00 Dose: 20 meq Potassium Chloride (Potassium Chloride Crtab 20 Meq Tabcr) 40 meq PO NOW STA Stop: 02/12/23 08:49 Vitamin B Complex (Vitamin B Complex Tab) 1 tab PO DAILY [facility] Stop: 03/11/23 08:59 Last Admin: 02/12/23 08:46 Dose: 1 tab
[2023-02-12] MEDS: NITROGLYCERIN 0.4 MG/HR PATCH TD SCH (09:51)
[2023-02-12] MEDS: dilTIAZem HCL 125 MG in DEXTROSE 5% 100 ML IV SCH (09:51)
[2023-02-12] MEDS ORDERED: FUROSEMIDE INJ 20 MG/2 ML VIAL IV ONE (10:14)
[2023-02-12 10:17] LABS: Partial Thromboplastin Time 56.9 Seconds (21.0-31.0)
[2023-02-12 14:27] LABS: Hematocrit (blood only) 45.4 % (37.0-47.0); Hemoglobin 15.3 g/dl (12.0-16.0)
--- NOTE | 2023-02-12 14:55 | Cardiology Progress Note ---
Date of Service February 12, 2023 Assessment & Plan (1) Permanent atrial fibrillation with RVR: (2) Left ventricular systolic dysfunction: (3) Hematuria: Plan: - Patient transition from Eliquis to heparin infusion without loading bolus on evening of 02/11/2023 at 2100 as bridge therapy to possible procedure this admission in an effort to minimize her time off of anticoagulation given atrial fibrillation and risk factor of left ventricular systolic dysfunction/CHF. -She has since developed worsening hematuria, now instead of dark urine, she has red janis bloody urine with clots noted in the collection vesicle. -Hemoglobin remains stable/unchanged at 15.3. Rates continue to improve, with ventricular rate down to the range of 80 to 90 bpm first thing in the morning on a dose of diltiazem 7.5 mg/h. -Shortness of breath has continued to improve over the last 3 days. -- Heparin discontinued. Continue furosemide, 20 mg IV x1 today. For rate control, continue metoprolol succinate 100 mg twice daily, digoxin 0.125 mg daily, wean diltiazem infusion to 5 mg/h and hopefully can be weaned completely by tomorrow. Continue nitroglycerin patch daily for blood pressure control and afterload reduction as well as lisinopril. Add low-dose hydralazine 10 mg p.o. twice daily. Will need to touch base with urology with regards to feasibility of possible cystoscopy as inpatient once optimized. Admission and Anticipated Discharge Date Admission Date: February 08, 2023 Physical Exam Constitutional: + ill appearing and + thin; no acute distress Respiratory: normal respiratory effort, lungs clear to auscultation Cardiovascular: Rate/Rhythm: + tachycardic; not irregularly irregular Heart Sounds: normal S1 and normal S2; no murmur Vessels: no JVD Extremities: no edema Gastrointestinal (Abdomen): normal bowel sounds, soft, nontender, no hepatosplenomegaly Neurologic: PERRL, EOMI, accommodation nl, no face palsy, no dysarthria Results & Data Vital Signs (Past 12 Hours) Vital Signs Temp Pulse Pulse Resp BP Pulse Ox Pulse Ox 02/12/23 11:05 36.3 C L 90 18 152/88 H 93 02/12/23 11:19 94 02/12/23 07:15 102 H 02/12/23 10:39 02/12/23 07:27 36.7 C 69 18 159/94 H 95 02/12/23 03:30 87 02/12/23 04:39 90 O2 Del Method O2 Del Method O2 Flow Rate 02/12/23 11:05 Nasal Cannula 2 02/12/23 11:19 Room Air 02/12/23 07:15 02/12/23 10:39 Nasal Cannula 2 02/12/23 07:27 Nasal Cannula 2 02/12/23 03:30 02/12/23 04:39
[2023-02-12] MEDS: DIGOXIN 0.125 MG TAB PO SCH (15:11)
--- NOTE | 2023-02-12 15:18 | Urology Progress Note ---
Date of Service February 12, 2023 Assessment & Plan (1) Hydronephrosis: (2) Gross hematuria: Plan 77-year-old female with asymptomatic left hydronephrosis and a questionable bladder mass Afebrile, hemodynamically stable. Labs reviewed -no leukocytosis, hemoglobin 15.3, creatinine 0.66. Continue to monitor. Continues on empiric Rocephin. Patient reports hematuria today. Hemoglobin is stable. She is voiding spontaneously without issue, no urine to assess during my visit. Recommend continuing to monitor, bladder scan as needed. No acute intervention planned at this time. Will arrange outpatient f/u with repeat imaging and cystoscopy to discuss plan moving forward for abnormality seen on CT scan. Patient does not need to hold anticoagulation for outpatient cystoscopy. Anticoagulation per primary team/cardiology. Urology will follow peripherally. Admission and Anticipated Discharge Date Admission Date: February 08, 2023 Subjective Pt examined at bedside today. No acute distress. She denies any pain or discomfort at present. No fevers. She does report hematuria today. Voiding without issue. Feels she is emptying her bladder well. Review of Systems Constitutional: as per Subjective / HPI Genitourinary: as per Subjective / HPI Physical Exam Constitutional: no acute distress Respiratory: no respiratory distress and no labored breathing Neurologic: awake Psychiatric: A+Ox3, euthymic affect Results & Data Vital Signs (Past 12 Hours) Vital Signs Temp Pulse Pulse Resp BP Pulse Ox Pulse Ox 02/12/23 15:11 90 02/12/23 11:05 36.3 C L 90 18 152/88 H 93 02/12/23 11:19 94 02/12/23 07:15 102 H 02/12/23 10:39 02/12/23 07:27 36.7 C 69 18 159/94 H 95 02/12/23 03:30 87 02/12/23 04:39 90 O2 Del Method O2 Del Method O2 Flow Rate 02/12/23 15:11 02/12/23 11:05 Nasal Cannula 2 02/12/23 11:19 Room Air 02/12/23 07:15 02/12/23 10:39 Nasal Cannula 2 02/12/23 07:27 Nasal Cannula 2 02/12/23 03:30 02/12/23 04:39 PG Care Time/CCT Total # of Minutes Spent Total Time Spent with Patient: Total time spent is greater than 50% in coordination of care (as documented) at patient's floor/unit and/or counseling patient: Coding Level of Care Code 03692 SUB INP/OBS CARE 2/35MIN Diagnoses Hydronephrosis N13.30 Gross hematuria R31.0
[2023-02-12] MEDS: cefTRIAXone SODIUM 2,000 MG in DEXTROSE 5% 50 ML IV SCH (18:05)
[2023-02-12] MEDS: hydrALAZINE 10 MG TAB PO SCH (20:08)
[2023-02-12] MEDS: POTASSIUM CHLORIDE CRTAB 20 MEQ TABCR PO SCH (21:08)
[2023-02-12] MEDS: OMEGA-3 (PURIFIED FISH OIL) 1 GM CAP PO SCH (21:08)
[2023-02-12] MEDS: ASPIRIN 81 MG ECTAB PO SCH (21:09)
[2023-02-13] MEDS ORDERED: PANTOPRAZOLE BOLUS/DRIP 1 EACH IV STA (03:07)
[2023-02-13] MEDS ORDERED: PANTOprazole 80 MG in DEXTROSE 5% 100 ML IV ONE (03:15)
[2023-02-13] MEDS: SODIUM CHLORIDE 0.9% 1000ML 1,000 ML IV SCH ×2 (03:23→20:05)
[2023-02-13] MEDS: PANTOprazole 40 MG in DEXTROSE 5% 100 ML IV SCH ×5 (03:37→23:19)
[2023-02-13 06:10] LABS: Hemoglobin 13.7 g/dl (12.0-16.0); Mean Corpuscular Hgb Conc 33.4 g/dL (32.0-36.0); Mean Corpuscular Volume 86.9 fL (80.0-100.0); Mean Platelet Volume 9.8 fL (9.4-12.4); Platelet Count 199 K/uL (130-400); RDW Coefficient of Variation 15.5 % (11.5-14.5); Red Blood Count 4.72 M/uL (4.20-5.40); White Blood Count 7.94 K/ul (4.8-10.8)
[2023-02-13 06:15] LABS: BUN Creatinine Ratio 23.1 (10-20); Calcium 8.4 mg/dl (8.6-10.3); Creatinine Clr Calc Pharmacy 66.3 ml/min; Est GFR (Non-African American) 86.2 ml/min; Magnesium 1.7 mg/dl (1.7-2.4); Phosphorus 2.4 mg/dl (2.5-4.9); Potassium 3.4 mmol/L (3.5-5.1)
[2023-02-13] MEDS: INSULIN ASPART PER UNIT CHARGE SC SCH ×4 (07:35→20:06)
--- NOTE | 2023-02-13 07:47 | Gastrointestinal Consultation ---
Date of Consultation February 13, 2023 Assessment & Plan (1) Nausea and vomiting: Now resolved. (2) Melena: No further melena since early this morning and Hb/BUN have been normal. Not likely to represent a significant GI bleed but ulcers, esophagitis and UGI lesions should be ruled out in light of need for chronic anticoagulation. Plan EGD today by Dr. Mensah. Further recommendations to follow endoscopy. Please keep NPO. Supervising Physician Co-Signing Physician Notes I saw and evaluated the patient. Patient has a fairly complex most notable for squamous cell carcinoma. Patient was on a heparin drip and was found to have an episode of melena, thus upper endoscopy has been requested by the internal medicine service for further evaluation. The patient also notes having nausea and vomitting which is subsequently resolved. No obvious distress no pallor of Skin noted Impression: Patient with a history of melena, I suspect this is related to rece nt anticoagulation. We are certainly happy to provide endoscopic evaluation to evaluate worrisome causes of melena such as peptic ulcer disease. We discussed the risks and benefits of upper endoscopy to include bleeding infection perforation pain and need for follow-up studies. History of Present Illness Reason for Consultation: Melena Requesting Physician: Dr. Donovan Attending Physician: Tee Voss MD History of Present Illness Ms. Lana Donovan is a 77 yr old female pt of Dr. Danielle w a hx of DM2, RUL Squamous cell carcinoma (PET in November w/o mets), A-fib on Eliquis, HTN, polyneuropathy, MGUS, depression, hx of colon cancer (approx 10 yrs ago tx w surgery/chemo, No radiation), and smoking. She presented to the ED on 02/08 for N/V/abd pain and was admitted for HTN urgency, A-fib w RVR and hypoxia. GI is consulted today for melena. [facility] records show she was on a heparin drip from 02/11 at 9PM through 02/12 at 11AM. Nursing documented one black tarry loose BM this morning at 3:30AM, but prior BMs were brown. She also had significant hematuria. Hb and BUN have been normal. CTA of Abd/pelvis on arrival w/o any suggestion of occlusion of blood supply to the GI tract. She denies any abdominal pain, heartburn or GERD. Denies any black/red BMs prior to the one early this morning. N/V has resolved w hydration. She is on an IV PPI drip. No record of prior EGD. Her most recent colonoscopy was last month, for chronic diarrhea and showed congested/hemorrhagic mucosa in the ascending colon, left colon diverticulosis and an end to end colo-colonic anastomosis. Path w focal hyperemia. There was also a 1mm polyp removed (path: tubular adenoma). Allergies Allergy/AdvReac Type Severity Reaction Status Date / Time prednisone AdvReac Intermediate "GOT REAL Verified 02/13/23 10:19 TENSE" Home Medications Medication Instructions Recorded Confirmed Type aspirin 81 mg tablet,delayed 81 mg PO HS 04/30/18 02/08/23 History release (Aspir-) metoprolol tartrate 100 mg tablet 100 mg PO BID 04/30/18 02/08/23 History omega 8-egx-dhv-fish oil 1,000 mg 1 tab PO QPM 04/30/18 02/08/23 History (120 mg-180 mg) capsule (Fish Oil) vitamins A,C,V-nxym-xjipbe 2,148 1 tab PO BID 04/30/18 02/08/23 History mcg-113 mg-45 mg-17.4 mg tablet (PreserVision AREDS) atorvastatin 40 mg tablet 40 mg PO QAM 05/26/19 02/08/23 History potassium chloride 10 mEq 20 meq PO QPM 05/26/19 02/08/23 History capsule,extended release vitamin B complex (B 1 tab PO DAILY 12/02/20 02/08/23 History Complex-Vitamin B12 tablet) apixaban 5 mg tablet 5 mg PO BID 02/08/23 02/08/23 History lisinopril 40 mg tablet 40 mg PO DAILY 02/08/23 02/08/23 History methimazole 5 mg tablet 5 mg PO TID 02/08/23 02/08/23 History Patient History Medical History (Updated 02/13/23 @ 09:20 by FRANCISCO Ramirez) Atrial fibrillation HX OF A-FIB (HOSPITALIZED 10/2018) NO CURRENT PROBLEMS Colon cancer CHEMO TREATMENT (COLON POLYPS REMOVED) Encounter for pre-operative examination History of diverticulitis HTN (hypertension) Hyperlipidemia Hyperthyroidism Multiple thyroid nodules Neuropathy b/l hands and feet Thyroid goiter Vocal cord polyps Surgical History Cyst REMOVED FROM BEHIND EAR H/O: hysterectomy History of tonsillectomy and adenoidectomy History of tooth extraction Hx of appendectomy Hx of colonoscopy with polypectomy (malignant) Family History Father Lung cancer Daughter Breast cancer Grandfather (Maternal) Coronary heart disease, Onset Age: 76 Social History Smoking Status: Current every day smoker Cigarettes Per Day: 20 CIG DAILY; Second Hand Exposure: Yes; Do You Dip or Chew Tobacco: No; Hx Alcohol Use: No Hx Substance Use: No Preferred Language: Wolof Communication Ability: Effective Research Pharmacist Required: No Beliefs That Will Affect Care: None Current Living Situation: Spouse and Family Current Living Situation Comment: sister and Other Information That Helps Us Care for You: No Feels Safe at Home: Yes Safety Concerns: Feels Safe At This Time Assistive Devices: None Assistive Devices Comment: cane and walker at home Review of Systems Review of Systems: ROS: Gen: Denies weakness, fevers, weight loss Eyes: No eye redness, or pain, no recent vision changes Resp: No SOB, no cough Cardio: "never feels" any irregular heart beats, no chest pain, no edemia GI: As per HPI, otherwise (-). : Denies pain on urination Skin: No jaundice, itching or new rashes Physical Exam Constitutional: well developed, + thin and cooperative; no acute distress Eyes: PERRL, conjunctivae normal, anicteric sclerae ENMT: external ear and nose normal, oropharynx normal Neck: trachea midline, no thyromegaly Respiratory: normal respiratory effort, lungs clear to auscultation Cardiovascular: Rate/Rhythm: + irregularly irregular Heart Sounds: normal S1 and normal S2; no murmur Gastrointestinal (Abdomen): normal bowel sounds, soft, nontender, no hepatosplenomegaly Musculoskeletal: no cyanosis or clubbing, extremities motor strength 5/5 Skin: normal turgor; no rashes and no jaundice Neurologic: PERRL, EOMI, accommodation nl, no face palsy, no dysarthria Psychiatric: A+Ox3, euthymic affect Lymphatic: no cervical or axillary lymphadenopathy Results & Data Vital Signs (Past 12 Hours) Vital Signs Temp Pulse Pulse Resp BP Pulse Ox O2 Del Method 02/13/23 07:17 76 02/13/23 03:22 37 C 88 18 162/99 H 95 Room Air 02/12/23 22:43 94 H 02/12/23 22:53 37.1 C 85 18 129/96 94 Room Air 02/12/23 20:00 Room Air Laboratory Results WBC 7, Hb 13, Hct 41, Plts 199, INR 2, Na 139, K 3.4, Cl 105, CO2 27, BUN 15, Cr 0.65, glucose 107. Diagnostic Findings CTA Abd/Pelvis 02/08/23: 1. Mild left hydroureteronephrosis with delayed left nephrogram and perinephric fluid. No ureteral calculi. The etiology for this dilatation is not clear on this exam and could be due to a recently passed calculus or an occult stricture/lesion. Urology consultation is recommended. 2. Small nodular density along anterior superior bladder bladder wall which could be assessed with cystoscopy. 3. Extensive aortoiliac atherosclerotic plaque. Ectatic infrarenal abdominal aorta. No dissection. Patent branch vessels within the abdomen. Severe stenosis of the right superficial femoral artery and moderate stenosis of the left superficial femoral artery. 4. Indeterminate 1 cm left renal lesion, suboptimally assessed on this exam.
[2023-02-13] MEDS: NICOTINE 21 MG/24 HR TDSY TD SCH (08:04)
--- NOTE | 2023-02-13 08:13 | Hospitalist Progress Note ---
Date of Service February 13, 2023 Assessment & Plan (1) Permanent atrial fibrillation with RVR: (2) Hypertensive urgency: (3) Nausea and vomiting: Plan Assessment & Plan (1) Permanent atrial fibrillation with RVR: (2) Hypertensive urgency: (3) Nausea and vomiting: Plan This is a 77-year-old male who has significant past medical history of T2DM, right upper lobe NSCLC Squamous cell carcinoma, Permanent atrial fib anticoagulated on Eliquis, HTN, drug-induced polyneuropathy, MGUS, depression, history of colon cancer and tobacco abuse who presents to ED secondary to Nausea, vomiting, abdominal pain and shortness of breath x1 day. Permanent atrial fibrillation with RVR secondary to underlying illness Lactic acidosis Nausea, vomiting and left-sided abdominal pain Symptoms of cystitis Admitted to PCU Patient received IVF on admission but still is tachycardic and lactic acid is 4.6-trended down Likely in setting of dehydration due to GI illness along with A-fib On admission on diltiazem drip, was weaned off yesterday however restarted overnight again as HR uncontrolled Continue metoprolol succinate 100 mg twice daily (switched from home tartrate) Continued Eliquis 5 mg twice daily -> switched to IV heparin per cardiology so that pt could get urology procedure done as inpt. heparin now stopped d/t gross hematuria Restarted lisinopril 40 mg daily Po diltiazem stopped Cont. digoxin Nitropaste, hydralazine Lasix prn CT a/p: Revealed left hydroureteronephrosis but no evidence of stone Patient reported left-sided flank pain that radiated around left side with associated nausea and vomiting. The pain has since resolved so wonder if she possibly did pass a stone Obtained urinalysis, ucultx - negative Pt then did not void next day until the evening and now w/ hematuria (also pt on eliquis), UA repeated- ucultx negat. Urology consulted - appreciate their input Blood cultures - negative so far Empirically treating with Rocephin 2 g daily for now (pt recently tx with oral bactrim for kleb UTI pansensitive, pt asymptomatic at the time) Cardiology consulted for afib RVR, HTN urgency Appreciate their input Echo obtained (02/10/23) Per cardiology - Echocardiogram reveals diffuse left ventricular hypokinesis of the apical and mid segments that spares the basal segments, LVEF 30-35%, moderate to severe pulmonary hypertension, PASP 63 m Hg, new compared to 2019- echocardiogram compatible with ischemia or stress induced CM. HTN urgency pt bp significantly elevated in ED, likely 2/2 pain, afib and missed meds improved with IV morphine and IV diltiazem CT head obtained given HTN and negative Cont. metoprolol on admission now also resumed home lisinopril Now off IV diltiazem for afib - cont. nitropatch, hydralazine Dark loose stools/melena - developed overnight GI consulted, and pt s/p EGD (02/13) Findings 2 cm hiatal hernia normal-appearing stomach, biopsies obtained for H. pylori Multiple ulcers of the duodenal bulb with pigmented spots (no visible vessel or active bleeding noted) Recommendations: Advance diet as tolerated Protonix 40 mg twice daily for 4 weeks then 1 time daily thereafter Carafate 1 gm qid for 1 month Avoid NSAIDs for 4 weeks Repeat EGD in 3 months to assess healing May resume anticoagulation in 48 hours. Dehydration 2/2 vomiting pt with elevated h/h , baseline 16 hemoconcentrated continue IVF, lactate trended down Hypoxia CTA chest - no PE, spiculated RUL nodule noted which is known to be nsclc, severe emphysema, suspect mild pulm edema with trace b/l pleural effusion likely in setting of afib with RVR continue O2 supplementation likely to resolve once underlying illness improves and HR improves NSCLC, RUL hx of colon ca MGUS recent biopsy to establish with CT surgery next week follows [facility] oncology, to f/u with them regarding tx as well Abnormal CTA Abd/Pelvis . Mild left hydroureteronephrosis with delayed left nephrogram and perinephric fluid. No ureteral calculi. The etiology for this dilatation is not clear on this exam and could be due to a recently passed calculus or an occult stricture/lesion. Urology consultation is recommended. 2. Small nodular density along anterior superior bladder bladder wall which could be assessed with cystoscopy. 3. Extensive aortoiliac atherosclerotic plaque. Ectatic infrarenal abdominal aorta. No dissection. Patent branch vessels within the abdomen. Severe stenosis of the right superficial femoral artery and moderate stenosis of the left superficial femoral artery. 4. Indeterminate 1 cm left renal lesion, suboptimally assessed on this exam. Urology was consulted - plans to follow up as outpt Pt with severe stenosis of right SFA and mod stenosis of L SFA,will need OP referral to vasc she is on asa and statin Hx of T2DM last a1c 6.2 10/23/22 bsg 162 in ED will follow blood sugar and add correction factor novolog only Tobacco abuse nicotine patch Dvt ppx: Eliquis -> iv heparin, now on hold d/t hematuria DNR/DNI PCP: Dr. Danielle Admission and Anticipated Discharge Date Admission Date: February 08, 2023 Subjective Pt seen in follow up of Afib, RVR, hypoxia, flank pain, n/v Currently laying in bed, in NAD, and reports improved breathing. However overnight, pt had dark loose stools. GI consulted and pt underwent EGD earlier today. Denies any abd. pain Currently on RA No fever, or chills HR also now improved - and Cardiology following closely Pt's updated this AM. Review of Systems Review of Systems: All systems reviewed & are unremarkable except as noted in Subjective Physical Exam Physical Exam: Constitutional: WD/WN, ill appearing, elderly, Fin NAD Head: Normocephalic, Atraumatic Eyes: PERRL, conjunctivae normal, anicteric sclerae ENMT: external ear and nose normal, oropharynx normal Neck: normal visual inspection Respiratory: normal respiratory effort, +rhonchi, no wheeze Cardiovascular: IRR/IRR, no murmur, no edema Chest: normal inspection of chest Abdomen: normal bowel sounds, soft, nontender Musculoskeletal:moves extremities Skin: no rashes, warm and dry normal turgor Neuro/Psych: A+Ox3, PERRL, EOMI, no face palsy, no dysarthria, moves all extremities Results & Data Results & Data Vital Signs (Past 12 Hours) Vital Signs Temp Pulse Pulse Resp BP Pulse Ox O2 Del Method 02/13/23 07:17 76 02/13/23 03:22 37 C 88 18 162/99 H 95 Room Air 02/12/23 22:43 94 H 02/12/23 22:53 37.1 C 85 18 129/96 94 Room Air Laboratory Results 02/13/23 02/13/23 02/13/23 Range/Units 07:32 05:37 05:37 WBC 7.94 (4.8-10.8) K/ul RBC 4.72 (4.20-5.40) M/uL Hgb 13.7 (12.0-16.0) g/dl Hct 41.0 (37.0-47.0) % MCV 86.9 (80.0-100.0) fL MCH 29.0 (25.0-34.0) pg MCHC 33.4 (32.0-36.0) g/dL RDW Std Deviation 48.0 H (36.4-46.3) fL RDW Coeff of Anjali 15.5 H (11.5-14.5) % Plt Count 199 (130-400) K/uL MPV 9.8 (9.4-12.4) fL APTT (21.0-31.0) Seconds PTT Ratio Sodium 139 (136-145) mmol/L Potassium 3.4 L (3.5-5.1) mmol/L Chloride 105 (98-107) mmol/L Carbon Dioxide 27 (21-32) mmol/L Anion Gap 7 (3-11) BUN 15 (6-23) mg/dl Creatinine 0.65 (0.6-1.2) mg/dl Est Cr Clr Drug Dosing 66.3 ml/min Est GFR ( Amer) 100.0 ml/min Est GFR (Non-Af Amer) 86.2 ml/min BUN/Creatinine Ratio 23.1 H (10-20) Glucose 107 H (70-99(Fasting)) mg/dl POC Glucose 109 H (70-99) mg/dl Calcium 8.4 L (8.6-10.3) mg/dl Phosphorus 2.4 L (2.5-4.9) mg/dl Magnesium 1.7 (1.7-2.4) mg/dl 02/12/23 02/12/23 02/12/23 Range/Units 20:01 16:27 13:59 WBC (4.8-10.8) K/ul RBC (4.20-5.40) M/uL Hgb 15.3 (12.0-16.0) g/dl Hct 45.4 (37.0-47.0) % MCV (80.0-100.0) fL MCH (25.0-34.0) pg MCHC (32.0-36.0) g/dL RDW Std Deviation (36.4-46.3) fL RDW Coeff of Anjali (11.5-14.5) % Plt Count (130-400) K/uL MPV (9.4-12.4) fL APTT (21.0-31.0) Seconds PTT Ratio Sodium (136-145) mmol/L Potassium (3.5-5.1) mmol/L Chloride (98-107) mmol/L Carbon Dioxide (21-32) mmol/L Anion Gap (3-11) BUN (6-23) mg/dl Creatinine (0.6-1.2) mg/dl Est Cr Clr Drug Dosing ml/min Est GFR ( Amer) ml/min Est GFR (Non-Af Amer) ml/min BUN/Creatinine Ratio (10-20) Glucose (70-99(Fasting)) mg/dl POC Glucose 119 H 108 H (70-99) mg/dl Calcium (8.6-10.3) mg/dl Phosphorus (2.5-4.9) mg/dl Magnesium (1.7-2.4) mg/dl 02/12/23 02/12/23 Range/Units 11:25 09:26 WBC (4.8-10.8) K/ul RBC (4.20-5.40) M/uL Hgb (12.0-16.0) g/dl Hct (37.0-47.0) % MCV (80.0-100.0) fL MCH (25.0-34.0) pg MCHC (32.0-36.0) g/dL RDW Std Deviation (36.4-46.3) fL RDW Coeff of Anjali (11.5-14.5) % Plt Count (130-400) K/uL MPV (9.4-12.4) fL APTT 56.9 H* (21.0-31.0) Seconds PTT Ratio 2.0 Sodium (136-145) mmol/L Potassium (3.5-5.1) mmol/L Chloride (98-107) mmol/L Carbon Dioxide (21-32) mmol/L Anion Gap (3-11) BUN (6-23) mg/dl Creatinine (0.6-1.2) mg/dl Est Cr Clr Drug Dosing ml/min Est GFR ( Amer) ml/min Est GFR (Non-Af Amer) ml/min BUN/Creatinine Ratio (10-20) Glucose (70-99(Fasting)) mg/dl POC Glucose 116 H (70-99) mg/dl Calcium (8.6-10.3) mg/dl Phosphorus (2.5-4.9) mg/dl Magnesium (1.7-2.4) mg/dl Medications Administered Current Inpatient Medications Acetaminophen (Acetaminophen 325 Mg Tab) 650 mg PO Q4H PRN PRN Reason: Pain or Fever Stop: 03/10/23 18:18 Aspirin (Aspirin 81 Mg Ectab) 81 mg PO HS [facility] Stop: 03/10/23 20:59 Last Admin: 02/12/23 21:09 Dose: 81 mg Atorvastatin Calcium (Atorvastatin 40 Mg Tab) 40 mg PO QAM [facility] Stop: 03/11/23 08:59 Last Admin: 02/12/23 08:45 Dose: 40 mg Dextrose (Dextrose 50% 50 Ml Syringe) 25 - 50 ml IV UD PRN; Protocol PRN Reason: Hypoglycemia Protocol Stop: 03/10/23 18:18 Digoxin (Digoxin 0.125 Mg Tab) 0.125 mg PO DAILY@1600 [facility] Stop: 03/14/23 15:59 Last Admin: 02/12/23 15:11 Dose: 0.125 mg Fish Oil ([place]-3 (Purified Fish Oil) 1 Gm Cap) 1 gm PO QPM [facility] Stop: 03/10/23 20:59 Last Admin: 02/12/23 21:08 Dose: 1 gm Glucagon (Glucagon For Inj 1 Mg Vial) 1 mg SQ UD PRN; Protocol PRN Reason: Hypoglycemia Protocol Stop: 03/10/23 18:18 Glucose (Glucose 10 Tab/Tube) 4 - 8 tab PO UD PRN; Protocol PRN Reason: Hypoglycemia Treatment Stop: 03/10/23 18:18 Glucose (Glucose 40% Gel 15 Gm Tube) 15 - 30 gm PO UD PRN; Protocol PRN Reason: Hypoglycemia Protocol Stop: 03/10/23 18:18 Hydralazine HCl (Hydralazine 10 Mg Tab) 10 mg PO BID [facility] Stop: 03/14/23 20:59 Last Admin: 02/12/23 20:08 Dose: 10 mg Ceftriaxone Sodium 2,000 mg/ (Dextrose) 70 mls @ 100 mls/hr IV Q24H [facility]; Protocol Stop: 02/18/23 18:59 Last Infusion: 02/12/23 18:50 Dose: Infused Diltiazem HCl 125 mg/ Dextrose 125 mls @ 5 mls/hr IV .Q24H [facility]; Protocol Stop: 03/12/23 04:44 Last Titration: 02/12/23 17:25 Dose: 5 mg/hr, 5 mls/hr Pantoprazole Sodium 40 mg/ (Dextrose) 100 mls @ 20 mls/hr IV Q5H [facility] Stop: 03/15/23 03:29 Last Admin: 02/13/23 08:02 Dose: 8 mg/hr, 20 mls/hr Sodium Chloride (Nss 1000ml) 1,000 mls @ 50 mls/hr IV .Q20H [facility] Stop: 03/15/23 03:14 Last Admin: 02/13/23 03:23 Dose: 50 mls/hr Magnesium Sulfate/Dextrose (Magnesium Sulfate / D5w) 1 gm in 100 mls @ 50 mls/hr IV ONE ONE Stop: 02/13/23 10:14 Potassium Chloride (K Suresh / Wtr) 10 meq in 100 mls @ 100 mls/hr IV Q1H [facility] Stop: 02/13/23 10:14 Insulin Aspart (Insulin Aspart Per Unit Charge) 0 units SC ACHS [facility] Stop: 03/10/23 20:59 Last Admin: 02/13/23 07:35 Dose: Not Given Lisinopril (Lisinopril 40 Mg Tab) 40 mg PO QAM [facility] Stop: 03/11/23 10:14 Last Admin: 02/12/23 08:46 Dose: 40 mg Magnesium Oxide (Magnesium Oxide 400 Mg Tab) 400 mg PO BID [facility] Stop: 03/13/23 09:59 Last Admin: 02/12/23 21:09 Dose: 400 mg Methimazole (Methimazole 5 Mg Tablet) 10 mg PO TID [facility] Stop: 03/12/23 13:59 Last Admin: 02/12/23 21:09 Dose: 10 mg Metoprolol Succinate (Metoprolol Succ 50mg Ext Rel Tab) 100 mg PO BID [facility] Stop: 03/11/23 20:59 Last Admin: 02/12/23 20:08 Dose: 100 mg Metoprolol Tartrate (Metoprolol Tartrate 1 Mg/Ml Vial) 5 mg IV Q6 PRN PRN Reason: Tachycardia Stop: 03/11/23 11:59 Last Admin: 02/10/23 01:05 Dose: 5 mg Miscellaneous (Remove Nicoderm Patch) 1 each N/A DAILY@0859 [facility] Stop: 03/11/23 08:58 Last Admin: 02/13/23 08:04 Dose: 1 each Miscellaneous (Carbohydrates For Hypoglycemia ) 15 - 30 gm PO UD PRN PRN Reason: Hypoglycemia Protocol Stop: 03/10/23 18:18 Miscellaneous (Remove Nitro-Dur Patch) 1 each N/A DAILY@2100 [facility] Stop: 03/13/23 20:59 Last Admin: 02/12/23 21:11 Dose: 1 each Multivitamins/Minerals (Cerovite Adv Formula Tab) 1 tab PO DAILY [facility] Stop: 03/11/23 08:59 Last Admin: 02/12/23 08:46 Dose: 1 tab Nicotine (Nicotine 21 Mg/24 Hr Tdsy) 21 mg TD QAM [facility] Stop: 03/10/23 18:18 Last Admin: 02/13/23 08:04 Dose: 21 mg Nitroglycerin (Nitroglycerin 0.4 Mg/Hr Patch) 1 patch TD QAM [facility] Stop: 03/13/23 12:14 Last Admin: 02/12/23 09:51 Dose: 1 patch Ondansetron HCl (Ondansetron Inj 2 Mg/Ml 2 Ml Vial) 4 mg IV Q6H PRN PRN Reason: Nausea Stop: 03/10/23 18:18 Polyethylene Glycol (Polyethylene (Miralax) 17 Gm Pack) 17 gm PO DAILY PRN PRN Reason: Constipation Stop: 03/10/23 18:18 Potassium Chloride (Potassium Chloride Crtab 20 Meq Tabcr) 20 meq PO QPM [facility] Stop: 03/10/23 20:59 Last Admin: 02/12/23 21:08 Dose: 20 meq Vitamin B Complex (Vitamin B Complex Tab) 1 tab PO DAILY [facility] Stop: 03/11/23 08:59 Last Admin: 02/12/23 08:46 Dose: 1 tab
[2023-02-13] MEDS ORDERED: MAGNESIUM SULFATE / D5W 1 GM/100 ML BAG IV ONE (08:15)
--- NOTE | 2023-02-13 08:43 | Anesthesiology Consultation ---
Date of Service February 13, 2023 Assessment & Plan (1) Encounter for pre-operative examination: Chart Review Chart Review: Acceptable Risk for Surgery, Patient NOT seen in Pre Admission Testing and entry specialists initiated Consults Requested none History Surgery Operation Date: 02/13/23 18:00 Proposed Procedures p Esophagogastroduodenoscopy Dr Rodrick Mensah, Height/Weight Height: 5 ft 5 in Weight: 63.7 kg Allergies Allergy/AdvReac Type Severity Reaction Status Date / Time prednisone AdvReac Intermediate "GOT REAL Verified 12/02/20 09:15 TENSE" Medications Home Medications Medication Instructions Recorded Confirmed Last Taken aspirin 81 mg tablet,delayed 81 mg PO HS 04/30/18 02/08/23 05/27/19 release (Aspir-) metoprolol tartrate 100 mg tablet 100 mg PO BID 04/30/18 02/08/23 05/29/19 07:38 omega 2-pfj-jrc-fish oil 1,000 mg 1 tab PO QPM 04/30/18 02/08/23 05/28/19 (120 mg-180 mg) capsule (Fish Oil) vitamins A,C,W-ytvk-dfpegb 2,148 1 tab PO BID 04/30/18 02/08/23 05/28/19 mcg-113 mg-45 mg-17.4 mg tablet (PreserVision AREDS) atorvastatin 40 mg tablet 40 mg PO QAM 05/26/19 02/08/23 05/29/19 07:38 potassium chloride 10 mEq 20 meq PO QPM 05/26/19 02/08/23 05/28/19 capsule,extended release vitamin B complex (B 1 tab PO DAILY 12/02/20 02/08/23 Unknown Complex-Vitamin B12 tablet) apixaban 5 mg tablet 5 mg PO BID 02/08/23 02/08/23 Unknown lisinopril 40 mg tablet 40 mg PO DAILY 02/08/23 02/08/23 Unknown methimazole 5 mg tablet 5 mg PO TID 02/08/23 02/08/23 Unknown Active Medications Generic Name Dose Route Start Last Admin Trade Name Freq PRN Reason Stop Dose Admin Aspirin 81 mg 02/08/23 21:00 02/12/23 21:09 Aspirin 81 Mg Ectab PO 03/10/23 20:59 81 mg HS CHERRY Administration Atorvastatin Calcium 40 mg 02/09/23 09:00 02/12/23 08:45 Atorvastatin 40 Mg Tab PO 03/11/23 08:59 40 mg QAM CHERRY Administration Digoxin 0.125 mg 02/12/23 16:00 02/12/23 15:11 Digoxin 0.125 Mg Tab PO 03/14/23 15:59 0.125 mg DAILY@1600 CHERRY Administration Fish Oil 1 gm 02/08/23 21:00 02/12/23 21:08 [place]-3 (Purified Fish Oil) 1 Gm Cap PO 03/10/23 20:59 1 gm QPM CHERRY Administration Hydralazine HCl 10 mg 02/12/23 21:00 02/12/23 20:08 Hydralazine 10 Mg Tab PO 03/14/23 20:59 10 mg BID CHERRY Administration Ceftriaxone Sodium 2,000 mg/ 70 mls @ 100 mls/hr 02/08/23 19:00 02/12/23 18:50 Dextrose IV 02/18/23 18:59 Infused Q24H CHERRY Infusion Protocol Diltiazem HCl 125 mg/ Dextrose 125 mls @ 5 mls/hr 02/10/23 04:45 02/12/23 17:25 IV 03/12/23 04:44 5 mg/hr .Q24H CHERRY 5 mls/hr Titration Protocol 5 MG/HR Pantoprazole Sodium 40 mg/ 100 mls @ 20 mls/hr 02/13/23 03:30 02/13/23 08:02 Dextrose IV 03/15/23 03:29 8 mg/hr Q5H CHERRY 20 mls/hr Administration 8 MG/HR Sodium Chloride 1,000 mls @ 50 mls/hr 02/13/23 03:15 02/13/23 03:23 Nss 1000ml IV 03/15/23 03:14 50 mls/hr .Q20H CHERRY Administration Insulin Aspart 0 units 02/08/23 21:00 02/13/23 07:35 Insulin Aspart Per Unit Charge SC 03/10/23 20:59 Not Given ACHS CHERRY Lisinopril 40 mg 02/09/23 10:15 02/12/23 08:46 Lisinopril 40 Mg Tab PO 03/11/23 10:14 40 mg QAM CHERRY Administration Magnesium Oxide 400 mg 02/11/23 10:00 02/12/23 21:09 Magnesium Oxide 400 Mg Tab PO 03/13/23 09:59 400 mg BID CHERRY Administration Methimazole 10 mg 02/10/23 14:00 02/12/23 21:09 Methimazole 5 Mg Tablet PO 03/12/23 13:59 10 mg TID CHERRY Administration Metoprolol Succinate 100 mg 02/09/23 21:00 02/12/23 20:08 Metoprolol Succ 50mg Ext Rel Tab PO 03/11/23 20:59 100 mg BID CHERRY Administration Metoprolol Tartrate 5 mg 02/09/23 06:38 02/10/23 01:05 Metoprolol Tartrate 1 Mg/Ml Vial IV 03/11/23 11:59 5 mg Q6 PRN Administration Tachycardia Miscellaneous 1 each 02/09/23 08:59 02/13/23 08:04 Remove Nicoderm Patch N/A 03/11/23 08:58 1 each DAILY@0859 CHERRY Administration Miscellaneous 1 each 02/11/23 21:00 02/12/23 21:11 Remove Nitro-Dur Patch N/A 03/13/23 20:59 1 each DAILY@2100 CHERRY Administration Multivitamins/Minerals 1 tab 02/09/23 09:00 02/12/23 08:46 Cerovite Adv Formula Tab PO 03/11/23 08:59 1 tab DAILY CHERRY Administration Nicotine 21 mg 02/08/23 18:19 02/13/23 08:04 Nicotine 21 Mg/24 Hr Tdsy TD 03/10/23 18:18 21 mg QAM CHERRY Administration Nitroglycerin 1 patch 02/11/23 12:15 02/12/23 09:51 Nitroglycerin 0.4 Mg/Hr Patch TD 03/13/23 12:14 1 patch QAM CHERRY Administration Potassium Chloride 20 meq 02/08/23 21:00 02/12/23 21:08 Potassium Chloride Crtab 20 Meq Tabcr PO 03/10/23 20:59 20 meq QPM CHERRY Administration Vitamin B Complex 1 tab 02/09/23 09:00 02/12/23 08:46 Vitamin B Complex Tab PO 03/11/23 08:59 1 tab DAILY CHERRY Administration Past Medical History Medical History (Updated 02/13/23 @ 08:46 by Michael iMller MD) Atrial fibrillation HX OF A-FIB (HOSPITALIZED 10/2018) NO CURRENT PROBLEMS Colon cancer CHEMO TREATMENT (COLON POLYPS REMOVED) Encounter for pre-operative examination History of diverticulitis HTN (hypertension) Hyperlipidemia Hyperthyroidism Multiple thyroid nodules Neuropathy b/l hands and feet Thyroid goiter Vocal cord polyps Past Family History Family History Father Lung cancer Daughter Breast cancer Grandfather (Maternal) Coronary heart disease, Onset Age: 76 Past Surgical History Surgical History Cyst REMOVED FROM BEHIND EAR H/O: hysterectomy History of tonsillectomy and adenoidectomy History of tooth extraction Hx of appendectomy Hx of colonoscopy with polypectomy (malignant) Social History Smoking Status: Current every day smoker tobacco type: cigarettes Smoking cigarettes per day: 20 CIG DAILY Do You Dip or Chew Tobacco: No Hx Alcohol Use: No Hx Substance Use: No substance use type: does not use Physical Exam Vital Signs Last Vital Signs Temp 37 C 02/13/23 03:22 Pulse 76 02/13/23 07:17 Resp 18 02/13/23 03:22 BP 162/99 H 02/13/23 03:22 Pulse Ox 95 02/13/23 03:22 O2 Del Method Room Air 02/13/23 03:22 O2 Flow Rate 2 02/12/23 11:05 Testing Laboratory Results 02/13/23 05:37 02/13/23 05:37 APTT 56.9 Seconds (21.0-31.0) H* 02/12/23 09:26 Hemoglobin A1c 6.2 % (4.5-5.6) H 02/09/23 02:45 Urine Color Brown 02/10/23 11:15 Urine Appearance Cloudy (Clear) A 02/10/23 11:15 Urine pH 5.5 (4.5-7.5) 02/10/23 11:15 Ur Specific [place] >= 1.030 (1.000-1.030) 02/10/23 11:15 Urine Protein 3+ (Negative) H 02/10/23 11:15 Urine Glucose (UA) Negative (Negative) 02/10/23 11:15 Urine Ketones Trace (Negative) H 02/10/23 11:15 Urine Nitrite Negative (Negative) 02/10/23 11:15 Ur Leukocyte Esterase Negative (Negative) 02/10/23 11:15 Urine WBC (Auto) 10-30 /hpf (0-5) H 02/08/23 16:50 Urine RBC (Auto) 10-30 /hpf (0-4) H 02/08/23 16:50 U Hyaline Cast (Auto) 1-5 /lpf (0-5) 02/08/23 16:50 U Epithel Cells (Auto) >30 /lpf (0-5) H 02/08/23 16:50 Urine Bacteria (Auto) Negative (Negative) 02/08/23 16:50 Urine RBC >30 /hpf (0-4) H 02/10/23 11:15 Urine WBC >30 /hpf (0-5) H 02/10/23 11:15 Ur Epithelial Cells 0-5 /lpf (0-5) 02/10/23 11:15 02/10/23 11:15 Urine Culture - Final Urine,Clean Catch Gram positive bacilli 02/08/23 12:38 Aerobic Blood Culture - Preliminary Blood No growth in Aerobic bottle after 48 hours. Anaerobic Blood Culture - Preliminary No growth in Anaerobic bottle after 48 hours. 02/08/23 12:36 Aerobic Blood Culture - Preliminary Blood No growth in Aerobic bottle after 48 hours. Anaerobic Blood Culture - Preliminary No growth in Anaerobic bottle after 48 hours. 02/08/23 16:50 Urine Culture - Final Urine,Clean Catch More than three types of organisms present, all moderate counts mixed probable skin anastasiia. No further identifications or sensitivities to follow. 02/13/23 07:32 POC Glucose 109 H Electrocardiogram Date: 02/11/23 Blood Pressure : / mmHG Vent. 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 Chest radiograph February 09, 2023. FINDINGS: There is no pneumothorax. Trace bilateral pleural effusions are similar to prior exam. Cardiomegaly is again noted. Suspicious right upper lobe nodule is better depicted on chest CT. Pulmonary edema has mildly improved. There are mild bibasilar opacities, similar to slightly improved since prior exam. IMPRESSION: 1. Mild improvement in pulmonary edema. 2. Trace bilateral pleural effusions. 3. Stable to slight decrease in bibasilar opacities Echocardiogram Date: 02/10/23 EF: 30-35% LV Function: dysfunctional RWMA: + hypokinetic Other Findings: + LVH (mild) and + pertinent finding (A-fib; mod-severe pulmonary hypertension)
[2023-02-13] MEDS: POTASSIUM CHLORIDE / WTR 10 MEQ/100 ML PLCT IV SCH ×2 (08:59→09:53)
[2023-02-13] MEDS: METOPROLOL SUCC 50MG EXT REL TAB PO SCH ×2 (09:03→19:59)
[2023-02-13] MEDS: NITROGLYCERIN 0.4 MG/HR PATCH TD SCH (09:53)
[2023-02-13] MEDS: methIMAzole 5 MG TABLET PO SCH ×3 (09:56→19:59)
[2023-02-13] MEDS: VITAMIN B COMPLEX TAB PO SCH (09:56)
[2023-02-13] MEDS: CEROVITE ADV FORMULA TAB PO SCH (09:56)
[2023-02-13] MEDS ORDERED: LIDOCAINE 2% 2 ML VIAL/AMP(20MG/ML) INFIL ONE (11:26)
[2023-02-13] MEDS ORDERED: PROPOFOL IV EMULSION 10 MG/ML 20 ML VIAL IV ONE (11:26)
--- NOTE | 2023-02-13 11:34 | GI REPORT ---
Patient Name: Lana Donovan Procedure Date: 02/13/2023 10:41 AM Date of : 1945 Admit Type: Inpatient Age: 77 Gender: Female Attending MD: Desiree Mensah DO, Procedure: Upper GI endoscopy Providers: Desiree Mensah DO Referring MD: Clement Danielle Indications: Melena Medicines: Monitored Anesthesia Care Complications: No immediate complications. Estimated blood loss: Minimal. Estimated Blood Loss: Estimated blood loss was minimal. Procedure: Pre-Anesthesia Assessment: - Prior to the procedure, a History and Physical was performed, and patient medications, allergies and sensitivities were reviewed. The patient's tolerance of previous anesthesia was reviewed. - The risks and benefits of the procedure and the sedation options and risks were discussed with the patient. All questions were answered and informed consent was obtained. - Patient identification and proposed procedure were verified prior to the procedure by the physician, the nurse and the human performance technologist. The procedure was verified in the procedure room. - Pre-procedure physical examination revealed no contraindications to sedation. - ASA Grade Assessment: III - A patient with severe systemic disease. - After reviewing the risks and benefits, the patient was deemed in satisfactory condition to undergo the procedure. - The anesthesia plan was to use monitored anesthesia care (MAC). - Immediately prior to administration of medications, the patient was re-assessed for adequacy to receive sedatives. - The heart rate, respiratory rate, oxygen saturations, blood pressure, adequacy of pulmonary ventilation, and response to care were monitored throughout the procedure. - The physical status of the patient was re-assessed after the procedure. After obtaining informed consent, the endoscope was passed under direct vision. Throughout the procedure, the patient's blood pressure, pulse, and oxygen saturations were monitored continuously. The Endoscope was introduced through the mouth, and advanced to the third part of duodenum. The upper GI endoscopy was accomplished without difficulty. The patient tolerated the procedure well. Findings: The examined esophagus was normal. A small hiatal hernia was found. The proximal extent of the gastric folds (end of tubular esophagus) was 35 cm from the incisors. The hiatal narrowing was 37 cm from the incisors. The Z-line was 35 cm from the incisors. The entire examined stomach was normal. Biopsies were taken with a cold forceps for histology. Estimated blood loss was minimal. The pathology specimen was placed into Bottle A. Many non-obstructing non-bleeding cratered duodenal ulcers with a flat pigmented spot (Kimani Class IIc) were found in the duodenal bulb. The largest lesion was 8 mm in largest dimension. The second portion of the duodenum and third portion of the duodenum were normal. Impression: - Normal esophagus. - Small hiatal hernia. - Normal stomach. Biopsied. - Non-obstructing non-bleeding duodenal ulcers with a flat pigmented spot (Kimani Class IIc). NSAID induced etiology. - Normal second portion of the duodenum and third portion of the duodenum. Recommendation: - [facility] care. - Advance diet as tolerated. - Use Protonix (pantoprazole) 40 mg PO BID for 4 weeks then 1 time daily therafter. - Use sucralfate tablets 1 gram PO QID for 1 month. - Repeat upper endoscopy in 3 months to check healing. Desiree Mensah D.O. Desiree Mensah, 02/13/2023 11:34:05 AM This report has been signed electronically. Note Initiated On: 02/13/2023 10:41 AM Number of Addenda: 0 I attest to the content of the Intraoperative Record and orders documented therein, exceptions below {[id number]}
--- NOTE | 2023-02-13 11:37 | Communication Note ---
Date of Service: February 13, 2023 The patient underwent endoscopy today for evaluation of melena. Findings 2 cm hiatal hernia normal-appearing stomach, biopsies obtained for H. pylori Multiple ulcers of the duodenal bulb with pigmented spots (no visible vessel or active bleeding noted) Recommendations: Advance diet as tolerated Protonix 40 mg twice daily for 4 weeks then 1 time daily thereafter Carafate 1 gm qid for 1 month Avoid NSAIDs for 4 weeks Repeat EGD in 3 months to assess healing May resume anticoagulation in 48 hours. Please call with questions / GI to sign off
--- NOTE | 2023-02-13 11:55 | Anesthesiology Progress Note ---
Date of Service February 13, 2023 Anesthesia Post Procedure Vital Signs Vital Signs: Temp Pulse Pulse Resp BP Pulse Ox O2 Del Method 02/13/23 11:52 79 12 133/86 92 Room Air 02/13/23 11:37 76 12 120/83 95 Room Air 02/13/23 11:22 36 C L 68 12 114/75 97 Room Air 02/13/23 10:19 36.9 C 87 18 149/89 H 94 Room Air 02/13/23 08:57 36.3 C L 94 H 16 144/76 H 95 Room Air 02/13/23 07:45 Room Air 02/13/23 07:17 76 02/13/23 03:22 37 C 88 18 162/99 H 95 Room Air 02/12/23 22:43 94 H 02/12/23 22:53 37.1 C 85 18 129/96 94 Room Air 02/12/23 20:00 Room Air 02/12/23 19:16 36.7 C 82 18 126/90 93 Room Air 02/12/23 16:08 36.3 C L 77 18 160/96 H 93 Room Air 02/12/23 14:01 86 02/12/23 15:11 90 Transfer of Care Handoff Completed per policy Notes Mental Status: alert / awake / arousable and participated in evaluation Patient Amnestic to Procedure: Yes Nausea / Vomiting: adequately controlled Pain: adequately controlled Airway Patency, RR, SpO2: stable & adequate BP & HR: stable & adequate Hydration State: stable & adequate Anesthetic Complications: no major complications apparent
[2023-02-13] MEDS: dilTIAZem HCL 125 MG in DEXTROSE 5% 100 ML IV SCH ×3 (12:31→15:12)
[2023-02-13 12:45] LABS: Hematocrit (blood only) 41.4 % (37.0-47.0); Hemoglobin 14.1 g/dl (12.0-16.0)
[2023-02-13] MEDS: lisinopril 40 MG TAB PO SCH (13:55)
[2023-02-13] MEDS: ATORVASTATIN 40 MG TAB PO SCH (13:56)
[2023-02-13] MEDS: MAGNESIUM OXIDE 400 MG TAB PO SCH ×2 (13:57→19:59)
[2023-02-13] MEDS: hydrALAZINE 10 MG TAB PO SCH ×2 (13:57→19:58)
[2023-02-13] MEDS: DIGOXIN 0.125 MG TAB PO SCH (15:32)
--- NOTE | 2023-02-13 17:40 | Cardiology Progress Note ---
Date of Service February 13, 2023 Assessment & Plan (1) Permanent atrial fibrillation with RVR: (2) Left ventricular systolic dysfunction: (3) Hematuria: Plan: - Heparin bridge infusion discontinued yesterday, 02/12/2023 due to worsening hematuria. Overnight she had explosive diarrhea with dark tarry stools. Hemoglobin remained stable. She underwent EGD this morning with findings of nonbleeding duodenal ulcers. She is now on IV Protonix. -Respiratory status overall improved. -IV diltiazem has been weaned. Continue metoprolol succinate 100 mg twice daily for rate control, digoxin 0.25 mg by mouth daily. -Continue nitroglycerin patch, hydralazine, lisinopril for afterload reduction -No diuretic therapy today. -Outpatient urology work-up. Remain off of anticoagulation completely due to concerns of hematuria and gastrointestinal bleeding. Admission and Anticipated Discharge Date Admission Date: February 08, 2023 Subjective Patient seen in cardiology follow up after EGD. Pt feeling improved. Denies SOB. Atrial fibrillation noted on telemetry , with ventricular rates of 77-87-bcpromfh with diltiazem infusion having been discontinued earlier today. Physical Exam Constitutional: + ill appearing and + thin; no acute distress Respiratory: normal respiratory effort, lungs clear to auscultation Cardiovascular: Rate/Rhythm: + tachycardic; not irregularly irregular Heart Sounds: normal S1 and normal S2; no murmur Vessels: no JVD Extremities: no edema Gastrointestinal (Abdomen): normal bowel sounds, soft, nontender, no hepatosplenomegaly Neurologic: PERRL, EOMI, accommodation nl, no face palsy, no dysarthria Results & Data Vital Signs (Past 12 Hours) Vital Signs Temp Pulse Pulse Resp BP Pulse Ox O2 Del Method 02/13/23 15:32 102 H 02/13/23 15:31 36.3 C L 97 H 16 146/74 H 94 Room Air 02/13/23 11:52 79 12 133/86 92 Room Air 02/13/23 11:37 76 12 120/83 95 Room Air 02/13/23 11:22 36 C L 68 12 114/75 97 Room Air 02/13/23 10:19 36.9 C 87 18 149/89 H 94 Room Air 02/13/23 08:57 36.3 C L 94 H 16 144/76 H 95 Room Air 02/13/23 07:45 Room Air 07/25/23 07:17 76
[2023-02-13] MEDS: cefTRIAXone SODIUM 2,000 MG in DEXTROSE 5% 50 ML IV SCH (18:27)
[2023-02-13 19:02] LABS: Hematocrit (blood only) 44.3 % (37.0-47.0); Hemoglobin 14.9 g/dl (12.0-16.0)
[2023-02-13] MEDS: POTASSIUM CHLORIDE CRTAB 20 MEQ TABCR PO SCH (19:59)
[2023-02-14] MEDS: PANTOprazole 40 MG in DEXTROSE 5% 100 ML IV SCH ×2 (04:02→09:03)
[2023-02-14 05:54] LABS: Hematocrit (blood only) 42.8 % (37.0-47.0); Hemoglobin 14.6 g/dl (12.0-16.0); Mean Corpuscular Hemoglobin 29.5 pg (25.0-34.0); Mean Corpuscular Hgb Conc 34.1 g/dL (32.0-36.0); Mean Corpuscular Volume 86.5 fL (80.0-100.0); Platelet Count 211 K/uL (130-400); RDW Coefficient of Variation 15.9 % (11.5-14.5); RDW Standard Deviation 48.9 fL (36.4-46.3); Red Blood Count 4.95 M/uL (4.20-5.40); White Blood Count 8.92 K/ul (4.8-10.8)
[2023-02-14 06:10] LABS: Calcium 8.3 mg/dl (8.6-10.3); Creatinine Clr Calc Pharmacy 51.3 ml/min; Est GFR (African American) 78.2 ml/min; Est GFR (Non-African American) 67.5 ml/min; Magnesium 1.7 mg/dl (1.7-2.4); Phosphorus 2.7 mg/dl (2.5-4.9); Potassium 3.8 mmol/L (3.5-5.1)
[2023-02-14] MEDS: INSULIN ASPART PER UNIT CHARGE SC SCH ×2 (07:46→11:38)
[2023-02-14] MEDS: METOPROLOL SUCC 50MG EXT REL TAB PO SCH (08:09)
[2023-02-14] MEDS: methIMAzole 5 MG TABLET PO SCH (08:09)
[2023-02-14] MEDS: CEROVITE ADV FORMULA TAB PO SCH (08:10)
[2023-02-14] MEDS: ATORVASTATIN 40 MG TAB PO SCH (08:10)
[2023-02-14] MEDS: MAGNESIUM OXIDE 400 MG TAB PO SCH (08:10)
[2023-02-14] MEDS: VITAMIN B COMPLEX TAB PO SCH (08:10)
[2023-02-14] MEDS: lisinopril 40 MG TAB PO SCH (08:10)
[2023-02-14] MEDS: hydrALAZINE 10 MG TAB PO SCH (08:10)
[2023-02-14] MEDS: NITROGLYCERIN 0.4 MG/HR PATCH TD SCH (08:12)
[2023-02-14] MEDS: NICOTINE 21 MG/24 HR TDSY TD SCH (08:12)
--- NOTE | 2023-02-14 14:42 | Cardiology Progress Note ---
Date of Service February 14, 2023 Assessment & Plan (1) Permanent atrial fibrillation with RVR: (2) Left ventricular systolic dysfunction: (3) Melena: (4) Hematuria: Plan: -LV dysfunction noted this admission with EKG abnormalities, minimal troponin elevation, Echocardiographic features suggestive of a stress induced CM. - AF-rate control with metoprolol succinate 100 mg BID. Digoxin 0.125 mg daily. -Methimazole dose increased to 10 mg TID. -Nitropatch, hydralazine for afterload reduction and BP. Increase hydralazine to 10 mg TID. -Furosemide 20 mg PO daily. Hgb stable. ---Patient eager for discharge. Noted recently diagnosed lung carcinoma and con cern for bladder tumor. --At this time, DC off of ASA and off of anticoagulation, risks of recurrent bleeding outweigh benefits. Case discussed with Dr Rodriges. Admission and Anticipated Discharge Date Admission Date: February 08, 2023 Subjective Patient seen in follow up. Notes breathing is improved. Gross hematuria is resolved as per patient. Stool improved. Physical Exam Constitutional: + thin; no acute distress Respiratory: normal respiratory effort, lungs clear to auscultation Cardiovascular: Rate/Rhythm: not irregularly irregular Heart Sounds: normal S1 and normal S2; no murmur Vessels: no JVD Extremities: no edema Gastrointestinal (Abdomen): normal bowel sounds, soft, nontender, no hepatosplenomegaly Neurologic: PERRL, EOMI, accommodation nl, no face palsy, no dysarthria Results & Data Vital Signs (Past 12 Hours) Vital Signs Temp Pulse Pulse Resp BP Pulse Ox O2 Del Method 02/14/23 11:31 36.5 C 90 16 152/92 H 95 Room Air 02/14/23 09:04 93 H 150/98 H 02/14/23 07:47 Room Air 02/14/23 07:32 36.9 C 105 H 18 178/99 H 95 Room Air 02/14/23 07:06 91 H Laboratory Results CBC 02/13/23 02/14/23 Range/Units 16:43 05:39 WBC 8.92 (4.8-10.8) K/ul RBC 4.95 (4.20-5.40) M/uL Hgb 14.9 14.6 (12.0-16.0) g/dl Hct 44.3 42.8 (37.0-47.0) % Plt Count 211 (130-400) K/uL Comprehensive Metabolic Panel 02/14/23 Range/Units 05:39 Sodium 138 (136-145) mmol/L Potassium 3.8 (3.5-5.1) mmol/L Chloride 106 (98-107) mmol/L Carbon Dioxide 25 (21-32) mmol/L BUN 16 (6-23) mg/dl Creatinine 0.84 (0.6-1.2) mg/dl Glucose 95 (70-99(Fasting)) mg/dl Calcium 8.3 L (8.6-10.3) mg/dl
--- NOTE | 2023-02-14 18:20 | Hospitalist Progress Note ---
Date of Service February 14, 2023 Assessment & Plan (1) Permanent atrial fibrillation with RVR: (2) Hypertensive urgency: (3) Nausea and vomiting: Plan per Dr. 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 Atrial fibrillation with rapid ventricular response Initially placed on Cardizem Spoke Maker consulted Echocardiogram reveals diffuse left ventricular hypokinesis of the apical and mid segments that spares the basal segments, LVEF 30-35%, moderate to severe pulmonary hypertension, PASP 63 m Hg, new compared to 2019- echocardiogram c ompatible with ischemia or stress induced CM. Transitioned to metoprolol succinate 100 mg twice daily, digoxin 0.125 mg daily Methimazole increased to 10 mg 3 times a day Hydralazine increased to 10 mg 3 times a day Lasix 20 mg p.o. daily Upper GI bleed Duodenal ulcer --Patient developed melena while on IV heparin drip --02/13: Status post EGD Impression: - Normal esophagus. - Small hiatal hernia. - Normal stomach. Biopsied. - Non-obstructing non-bleeding duodenal ulcers with a flat pigmented spot ([place] Class IIc). NSAID induced etiology. - Normal second portion of the duodenum and third portion of the duodenum. Recommendation: - Return patient to [facility] care. - Advance diet as tolerated. - Use Protonix (pantoprazole) 40 mg PO BID for 4 weeks then 1 time daily therafter. - Use sucralfate tablets 1 gram PO QID for 1 month. - Repeat upper endoscopy in 3 months to check healing. Follow-up with GI clinic UTI Hematuria CT a/p: Revealed left hydroureteronephrosis but no evidence of stone Patient reported left-sided flank pain that radiated around left side with associated nausea and vomiting. The pain has since resolved so wonder if she possibly did pass a stone Urine culture: Gram-positive bacilli Given 3-day course of IV ceftriaxone Patient developed hematuria while on heparin drip, resolved Monitor as an outpatient HTN urgency pt bp significantly elevated in ED, likely 2/2 pain, afib and missed meds improved with IV morphine and IV diltiazem CT head obtained given HTN and negative --Medications changes per #1 Hypoxia, resolved CTA chest - no PE, spiculated RUL nodule noted which is known to be nsclc, severe emphysema, suspect mild pulm edema with trace b/l pleural effusion likely in setting of afib with RVR NSCLC, RUL hx of colon ca MGUS recent biopsy to establish with CT surgery next week follows [facility] oncology, to f/u with them regarding tx as well Abnormal CTA Abd/Pelvis 1. Mild left hydroureteronephrosis with delayed left nephrogram and perinephric fluid. No ureteral calculi. The etiology for this dilatation is not clear on this exam and could be due to a recently passed calculus or an occult stricture/lesion. Urology consultation is recommended. 2. Small nodular density along anterior superior bladder bladder wall which could be assessed with cystoscopy. 3. Extensive aortoiliac atherosclerotic plaque. Ectatic infrarenal abdominal aorta. No dissection. Patent branch vessels within the abdomen. Severe stenosis of the right superficial femoral artery and moderate stenosis of the left superficial femoral artery. 4. Indeterminate 1 cm left renal lesion, suboptimally assessed on this exam. Urology was consulted - plans to follow up as outpt Pt with severe stenosis of right SFA and mod stenosis of L SFA,will need OP referral to vasc she is on asa and statin Hx of T2DM last a1c 6.2 10/23/22 Tobacco abuse nicotine patch Dvt ppx: Eliquis _> iv heparin, now on hold d/t hematuria DNR/DNI PCP: Dr. Danielle Admission and Anticipated Discharge Date Admission Date: February 08, 2023 Subjective Follow-up for atrial fibrillation, etc. Seen resting in bed, comfortable, not in distress States she feels much better overall no chest pain, dyspnea, palpitations, dizziness No recurrence of melena or bloody stools No abdominal pain, nausea or vomiting Ambulating with no problems States she is very much ready for discharge today Patient's sister at the bedside also agreeable for discharge Review of Systems Review of Systems: all noted and negative except for above Physical Exam Physical Exam: General- oriented x 3, not in distress, speaks in sentences with no effort or accessory muscle use Eyes- anicteric Neck- no JVD Lungs- clear breath sounds bilaterally, no rales/wheezes Heart- normal rate, irregularly irregular rhythm; no murmurs Abdomen- normal bowel sounds, nondistended, soft, nontender Extremities- no pretibial edema, no calf tenderness Neuro- alert, oriented x 3; no gross focal neurologic deficits Skin- warm & dry Results & Data Results & Data Vital Signs (Past 12 Hours) Vital Signs Temp Pulse Pulse Resp BP BP Pulse Ox 02/14/23 15:40 36.5 C 90 16 152/92 H 131/89 95 02/14/23 11:31 36.5 C 90 16 152/92 H 95 02/14/23 09:04 93 H 150/98 H 02/14/23 07:47 02/14/23 07:32 36.9 C 105 H 18 178/99 H 95 02/14/23 07:06 91 H O2 Del Method 02/14/23 15:40 02/14/23 11:31 Room Air 02/14/23 09:04 02/14/23 07:47 Room Air 02/14/23 07:32 Room Air 02/14/23 07:06 all noted and reviewed including below
--- NOTE | 2023-02-14 18:33 | Discharge Summary ---
Discharge Summary Date of Service February 14, 2023 Notes For Next Care Provider Medication Changes From Visit METOPROLOL SUCCINATE 100MG TWICE A DAY DIGOXIN 0.125MG DAILY IN THE MORNING LASIX 20MG DAILY IN THE MORNING PROTONIX 40MG TWICE A DAY FOR 1 MONTH, THEN DAILY IN THE MORNING (TAKE AT LEAST 30 MINUTES BEFORE MEAL) CARAFATE 1 G TWICE A DAY FOR 1 MONTH HYDRALAZINE INCREASED TO 10 MG 3 TIMES DAILY METHIMAZOLE INCREASED TO 10 MG 3 TIMES DAILY ELIQUIS DISCONTINUED ASPIRIN ON HOLD X4 WEEKS Admission HPI Per Admitting Provider This is a 77-year-old male who has significant past medical history of T2DM, 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 Of significance patient follows with [facility] oncology in relation to prior history of colon cancer. She is also currently following with pulmonology in regards to work-up for right upper lobe lung nodule. On 01/[address]-guided biopsy which was consistent with non-small cell carcinoma/squamous cell carcinoma. Patient states her symptoms started approximately 1 to 2 days ago. She noted some generalized abdominal discomfort and specifically left-sided flank pain that radiated through to abdomen. She felt it was generally mild at the time. She also complains of dysuria and increased urgency and frequency with urination for the past 2 days. Approximately 1 week ago treated for urinary tract infection with Bactrim. She did complete antibiotic course. Earlier this morning she developed vomiting and had approximately 8-9 episodes, nausea and persistent left-sided flank pain and left-sided abdominal pain. She also reports being short of breath. Due to the symptoms she reported to ED. She denied feeling feverish, chills or sweats. She denied lightheadedness, dizziness, chest pain, cough, URI symptoms, sick contacts, hematuria, melena or hematochezia. Approximately 1 month ago she was dealing with diarrhea.She has been compliant with medications except for when she had to hold Eliquis for recent biopsy and has not been able to take medications for the last 1 to 2 days. Patient was markedly hypertensive upon arrival. Lab work notable for si gnificant lactic acidosis with lactic acid greater than 6, H&H elevated 18.6 and 56.9, to BC 11.24, BUN 17, creatinine 1.10, glucose 162, total bilirubin 1.4, alk phos 154, TSH low at 0.010 with a free T4 normal at 0.77. She underwent CTA of chest which was negative for PE, did reveal right upper lobe lung nodule which is already known to be squamous cell carcinoma, severe emphysema, suspected mild interstitial pulmonary edema, mild left hydroureteronephrosis noted on CT abdomen pelvis. In ED she was appropriately resuscitated with 1.5 L of IV fluid. Admission Exam Per Admitting Provider Constitutional: WD/WN, ill appearing, elderly, F vitals as above, NAD, sitting up in bed, pleasant, conversing easily Head: Normocephalic, Atraumatic Eyes: PERRL, conjunctivae normal, anicteric sclerae ENMT: external ear and nose normal, oropharynx normal Neck: trachea midline, no thyromegaly normal visual inspection Respiratory: normal respiratory effort, +rhonchi, no wheeze, rales, Normal insp/exp effort, no accessory muscle use Cardiovascular: IRR/IRR, no murmur, no edema Vessels: no JVD or carotid bruit Chest: normal inspection of chest Abdomen: normal bowel sounds, soft, nontender, no hepatosplenomegaly Musculoskeletal: no cyanosis or clubbing, extremities motor strength 5/5 Skin: no rashes, warm and dry normal turgor Neurologic: PERRL, EOMI, accommodation nl, no face palsy, no dysarthria CN's II-XI intact bilaterally and moves all extremities Psychiatric: A+Ox3, euthymic affect Lymphatic: no cervical or axillary lymphadenopathy : deferred Principal Dx & Hospital Course #1 = Principal Diagnosis (1) Permanent atrial fibrillation with RVR: (2) Hypertensive urgency: (3) Nausea and vomiting: Plan per Dr. 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 Transitioned to metoprolol succinate 100 mg twice daily, digoxin 0.125 mg daily Methimazole increased to 10 mg 3 times a day Hydralazine increased to 10 mg 3 times a day Lasix 20 mg p.o. daily Patient deemed NOT a long-term anticoagulation candidate in light of melena and hematuria Aspirin held per GI, resume in 4 weeks Upper GI bleed Duodenal ulcer --Patient developed melena while on IV heparin drip --02/13: Status post EGD Impression: - Normal esophagus. - Small hiatal hernia. - Normal stomach. Biopsied. - Non-obstructing non-bleeding duodenal ulcers with a flat pigmented spot (Kimani Class IIc). NSAID induced etiology. - Normal second portion of the duodenum and third portion of the duodenum. Recommendation: - [facility] patient to [facility] care. - Advance diet as tolerated. - Use Protonix (pantoprazole) 40 mg PO BID for 4 weeks then 1 time daily therafter. - Use sucralfate tablets 1 gram PO QID for 1 month. - Repeat upper endoscopy in 3 months to check healing. Follow-up with GI clinic UTI Hematuria CT a/p: Revealed left hydroureteronephrosis but no evidence of stone Patient reported left-sided flank pain that radiated around left side with associated nausea and vomiting. The pain has since resolved so wonder if she possibly did pass a stone Urine culture: Gram-positive bacilli Given 3-day course of IV ceftriaxone Patient developed hematuria while on heparin drip, resolved Monitor as an outpatient HTN urgency pt bp significantly elevated in ED, likely 2/2 pain, afib and missed meds improved with IV morphine and IV diltiazem CT head obtained given HTN and negative --Medications changes per #1 Hypoxia, resolved CTA chest - no PE, spiculated RUL nodule noted which is known to be nsclc, severe emphysema, suspect mild pulm edema with trace b/l pleural effusion likely in setting of afib with RVR NSCLC, RUL hx of colon ca MGUS CT chest: 1. No pulmonary emboli identified. 2. Spiculated 2.9 x 1.9 cm right upper lobe nodule. This is suggestive of a primary lung malignancy. Although less likely, an infectious process could appear similar. Pulmonary consultation is recommended for consideration for bronchoscopy. 3. Mildly enlarged mediastinal lymph nodes. These are similar to CT of November 27, 2005 but remain indeterminate and should be assessed on follow-up imaging studies. 4. Severe emphysema. 5. Suspected mild interstitial pulmonary edema. Small right and trace left pleural effusions. 6. Mild left hydronephrosis with delayed left nephrogram better depicted on the CTA of the abdomen and pelvis which will be reported separately. 7. Subacute to chronic T12 compression fracture with mild retropulsion. Several additional old thoracic and lumbar spine compression fractures. ACT 112: Positive. There are findings on this exam that require communication between the performing entity and the patient following Patient Test Result Information Act ([place] Act 112) guidelines. recent biopsy to establish with CT surgery next week follows [facility] oncology, to f/u with them regarding tx as well Abnormal CTA Abd/Pelvis 1. Mild left hydroureteronephrosis with delayed left nephrogram and perinephric fluid. No ureteral calculi. The etiology for this dilatation is not clear on this exam and could be due to a recently passed calculus or an occult stricture/lesion. Urology consultation is recommended. 2. Small nodular density along anterior superior bladder bladder wall which could be assessed with cystoscopy. 3. Extensive aortoiliac atherosclerotic plaque. Ectatic infrarenal abdominal aorta. No dissection. Patent branch vessels within the abdomen. Severe stenosis of the right superficial femoral artery and moderate stenosis of the left superficial femoral artery. 4. Indeterminate 1 cm left renal lesion, suboptimally assessed on this exam. Urology was consulted - plans to follow up as outpt Pt with severe stenosis of right SFA and mod stenosis of L SFA,will need OP referral to vasc she is on asa and statin Hx of T2DM last a1c 6.2 10/23/22 Tobacco abuse nicotine patch Dvt ppx: Eliquis _> iv heparin, now on hold d/t hematuria DNR/DNI PCP: Dr. Danielle Discharge Exam General- oriented x 3, not in distress, speaks in sentences with no effort or accessory muscle use Eyes- anicteric Neck- no JVD Lungs- clear breath sounds bilaterally, no rales/wheezes Heart- normal rate, irregularly irregular rhythm; no murmurs Abdomen- normal bowel sounds, nondistended, soft, nontender Extremities- no pretibial edema, no calf tenderness Neuro- alert, oriented x 3; no gross focal neurologic deficits Skin- warm & dry Updated Medication List Medication Instructions Recorded Confirmed Type aspirin 81 mg tablet,delayed 81 mg PO HS 04/30/18 02/08/23 History release (Aspir-) omega 9-sgj-pjr-fish oil 1,000 mg 1 tab PO QPM 04/30/18 02/08/23 History (120 mg-180 mg) capsule (Fish Oil) vitamins A,C,G-qome-xqobhe 2,148 1 tab PO BID 04/30/18 02/08/23 History mcg-113 mg-45 mg-17.4 mg tablet (PreserVision AREDS) atorvastatin 40 mg tablet 40 mg PO QAM 05/26/19 02/08/23 History potassium chloride 10 mEq 20 meq PO QPM 05/26/19 02/08/23 History capsule,extended release vitamin B complex (B 1 tab PO DAILY 12/02/20 02/08/23 History Complex-Vitamin B12 tablet) lisinopril 40 mg tablet 40 mg PO DAILY 02/08/23 02/08/23 History methimazole 5 mg tablet 5 mg PO TID 02/08/23 02/08/23 History digoxin 125 mcg (0.125 mg) tablet 0.125 mg PO DAILY@1600 30 days #30 02/14/23 Rx (Digitek) tabs furosemide 20 mg tablet (Lasix) 20 mg PO DAILY 30 days #30 tabs 02/14/23 Rx hydralazine 10 mg tablet 10 mg PO BID 30 days #60 tabs 02/14/23 Rx magnesium oxide 400 mg (241.3 mg 400 mg PO BID 14 days #28 tabs 02/14/23 Rx magnesium) tablet metoprolol succinate 50 mg 100 mg PO BID 30 days #120 tabs 02/14/23 Rx tablet,extended release 24 hr pantoprazole 40 mg tablet,delayed 40 mg PO BID 30 days #60 tabs 02/14/23 Rx release (Protonix) sucralfate 1 gram tablet (Carafate) 1 g PO QID 30 days #120 tabs 02/14/23 Rx Hospital Stay Data Consultations 02/08/23 14:56 ED Decision to Admit Stat 02/08/23 15:14 Consult Cardiology Routine 02/08/23 16:11 Consult Urology Routine 02/13/23 08:00 Consult Gastroenterology Routine Procedures Performed Operation Date: 02/13/23 18:00 Actual Procedures p EGD Biopsy Cytology - Desiree Mensah, Diagnostic Imagining Performed Chest CTA 02/08/23 12:27 CT ANGIOGRAPHY OF THE CHEST, PULMONARY EMBOLUS PROTOCOL CLINICAL HISTORY: Chest pain. COMPARISON STUDY: Chest radiograph November 14, 2018. Chest CT November 27, 2005. TECHNIQUE: Following IV administration of 114 mL of Optiray, helical axial images of the chest were obtained utilizing the pulmonary embolus protocol. Maximal intensity projections and sagittal and coronal reformats were viewed on an independent 3D workstation. IV contrast was administered without complication. Automated exposure control was utilized for the study. A dose lowering technique was utilized adhering to the principles of ALARA. FINDINGS: No pulmonary emboli are identified. There is extensive plaque of the thoracic aorta. There is no thoracic aortic dissection. There is mild dilatation of the central pulmonary arteries. Moderate cardiomegaly is noted. There is moderate coronary artery calcification. There is no pericardial effusion. Multinodular thyroid gland is again noted. This was shown on CT of November 27, 2005. A few mildly enlarged mediastinal lymph nodes are similar to prior chest CT. Index precarinal node on image 100 of 267 measures 2 x 1.4 cm. Small right and trace left pleural effusions are present. There is no pneumothorax. There is severe emphysema. No consolidation is identified to suggest pneumonia. Subpleural opacities favor atelectasis. There is mild interlobular septal thickening. Note is made of a spiculated 2.9 x 1.9 cm right upper lobe nodule on image 48 of 267. This is new since prior chest CT. This extends to the pleura. No additional suspicious pulmonary nodules are present. There are no suspicious lesions within the visualized bony thorax. Mild left hydronephrosis with delayed left nephrogram is better depicted on the abdomen and pelvis CT which will be reported separately. A moderate to severe L1 compression fracture is likely chronic. There is a moderate T12 compression fracture which is likely subacute to chronic. Mild associated retropulsion. Additional mild thoracic spine compression deformity is likely chronic. IMPRESSION: 1. No pulmonary emboli identified. 2. Spiculated 2.9 x 1.9 cm right upper lobe nodule. This is suggestive of a primary lung malignancy. Although less likely, an infectious process could appear similar. Pulmonary consultation is recommended for consideration for bronchoscopy. 3. Mildly enlarged mediastinal lymph nodes. These are similar to CT of November 27, 2005 but remain indeterminate and should be assessed on follow-up imaging studies. 4. Severe emphysema. 5. Suspected mild interstitial pulmonary edema. Small right and trace left pleural effusions. 6. Mild left hydronephrosis with delayed left nephrogram better depicted on the CTA of the abdomen and pelvis which will be reported separately. 7. Subacute to chronic T12 compression fracture with mild retropulsion. Several additional old thoracic and lumbar spine compression fractures. ACT 112: Positive. There are findings on this exam that require communication between the performing entity and the patient following Patient Test Result Information Act ([place] Act 112) guidelines. Electronically signed by: Nico Larson M.D. 02/08/2023 2:30 PM Abdomen/Pelvis CTA 02/08/23 12:54 CTA OF THE ABDOMEN AND PELVIS CLINICAL HISTORY: Abdominal pain. COMPARISON STUDY: CT of the abdomen and pelvis November 08, 2007. TECHNIQUE: Helical axial images of the abdomen and pelvis were obtained during arterial phase following intravenous injection of 114 cc of Optiray 320 IV. Sagittal and coronal coronal reconstructions were viewed as well as maximal intensity projections on an independent 3-D workstation. Automated exposure control was utilized for the study. A dose lowering technique was utilized adhering to the principles of ALARA. FINDINGS: Please note that the chest CT will be reported separately. No pneumato sis, free air or portal venous gas is present. Arterial phase images of the liver, spleen, adrenal glands and pancreas are unremarkable. Mild biliary ductal dilatation is likely related to cholecystectomy. There is no right hydronephrosis. There is mild left hydroureteronephrosis with delayed left nephrogram. There is also mild left perinephric fluid and stranding. No ureteral calculi are present. No obstructing lesion is identified by CT. 5 mm nodular density along anterior superior bladder wall is noted on image 309. There is an indeterminate 1 cm left mid pole renal lesion on image 113 of 390. There is no evidence for a bowel obstruction. The caliber and wall thickness of small and large bowel are normal. There is no lymphadenopathy. Extensive atherosclerotic plaque of the abdominal aorta is noted. The infrarenal abdominal aorta is ectatic, measuring 2.6 cm. Branch vessels are patent within the abdomen. There is mild dilatation of the right common iliac artery, measuring 1.7 cm. There is extensive plaque within the bilateral common iliac, internal iliac and external iliac arteries. There is mild dilatation of the right common femoral artery, measuring 1.2 cm. Severe stenosis of the proximal right superficial femoral artery is noted. There is moderate stenosis of the proximal left superficial femoral artery. Moderate T12 compression fracture is likely subacute to chronic. There is mild retropulsion. There is an old L1 compression fracture. IMPRESSION: 1. Mild left hydroureteronephrosis with delayed left nephrogram and perinephric fluid. No ureteral calculi. The etiology for this dilatation is not clear on this exam and could be due to a recently passed calculus or an occult stricture/lesion. Urology consultation is recommended. 2. Small nodular density along anterior superior bladder bladder wall which could be assessed with cystoscopy. 3. Extensive aortoiliac atherosclerotic plaque. Ectatic infrarenal abdominal aorta. No dissection. Patent branch vessels within the abdomen. Severe stenosis of the right superficial femoral artery and moderate stenosis of the left superficial femoral artery. 4. Indeterminate 1 cm left renal lesion, suboptimally assessed on this exam. ACT 112: Positive. There are findings on this exam that require communication between the performing entity and the patient following Patient Test Result Information Act ([place] Act 112) guidelines. Electronically signed by: Nico Larson M.D. 02/08/2023 2:48 PM Venous Doppler Study 02/08/23 15:28 ULTRASOUND BILATERAL LOWER EXTREMITY VENOUS CLINICAL HISTORY: Leg pain and swelling. COMPARISON STUDY: Left lower extremity venous ultrasound dated 02/10/2021 TECHNIQUE: Real-time, grayscale, and color Doppler sonography of the deep veins of the right and left lower extremity was performed from the inguinal crease to the calf. Compression and augmentation were utilized. FINDINGS: There is no sonographic evidence of deep venous thrombosis identified in the right or left lower extremity. The common femoral, superficial femoral, and popliteal veins are patent and normally compressible bilaterally. The greater saphenous vein and the profunda femoris vein at the junction with the common femoral vein are clear in both legs. The visualized calf veins are patent bilaterally. IMPRESSION: There is no sonographic evidence of deep venous thrombosis identified in the right or left lower extremity. ACT 112: Negative or not required by law. Electronically signed by: Andre Kwok M.D. 02/08/2023 4:[address] 02/08/23 15:42 CT OF THE HEAD WITHOUT CONTRAST CLINICAL HISTORY: Hypertension, on eliquis. COMPARISON STUDY: Head CT November 14, 2018. CT DOSE: 625.80 mGy.cm TECHNIQUE: Helical axial images of the head were obtained without IV contrast. Automated exposure control was utilized for the study. A dose lowering technique was utilized adhering to the principles of ALARA. FINDINGS: Incidental note is made of intravascular contrast from recent contrast-enhanced CT. White matter hypodensity suggests small vessel disease. No acute intracranial hemorrhage, midline shift or mass effect is present. The ventricular system is unremarkable. The basal cisterns are patent. No extra- axial collections are present. There are no findings to suggest acute dural sinus thrombosis or acute territorial infarct. No significant calvarial abnormalities are present. 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 IMPRESSION: No acute intracranial findings. ACT 112: Negative or not required by law. Electronically signed by: Nico Larson M.D. 02/08/2023 5:57 PM Chest X-Ray 02/10/23 07:39 XR chest 1V portable CLINICAL HISTORY: hypoxia COMPARISON STUDY: Chest CT February 08, 2023. Chest radiograph February 09, 2023. FINDINGS: There is no pneumothorax. Trace bilateral pleural effusions are similar to prior exam. Cardiomegaly is again noted. Suspicious right upper lobe nodule is better depicted on chest CT. Pulmonary edema has mildly improved. There are mild bibasilar opacities, similar to slightly improved since prior exam. IMPRESSION: 1. Mild improvement in pulmonary edema. 2. Trace bilateral pleural effusions. 3. Stable to slight decrease in bibasilar opacities. ACT 112: Negative or not required by law. Electronically signed by: Nico Larson M.D. 02/10/2023 7:57 AM Pending Results Patient Have Any Pending Studies at Discharge: No Discharge Instructions Given to Patient (Per Discharging Provider) PLEASE REFER TO YOUR NEW MEDICATION LIST AND FOLLOW INSTRUCTIONS CAREFULLY. YOUR NEW MEDICATIONS INCLUDE: METOPROLOL SUCCINATE 100MG TWICE A DAY DIGOXIN 0.125MG DAILY IN THE MORNING LASIX 20MG DAILY IN THE MORNING PROTONIX 40MG TWICE A DAY FOR 1 MONTH, THEN DAILY IN THE MORNING (TAKE AT LEAST 30 MINUTES BEFORE MEAL) CARAFATE 1 G TWICE A DAY FOR 1 MONTH PLEASE CALL YOUR PRIMARY CARE PHYSICIAN OR RETURN TO THE ER IF WITH WORSENING OF SYMPTOMS, INCLUDING CHEST PAIN, SHORTNESS OF BREATH, PALPITATIONS, DIZZINESS, BLACK OR RED STOOLS, ABDOMINAL PAIN, WEAKNESS, ETC FOLLOW UP WITH PRIMARY CARE PHYSICIAN OUTLINED ABOVE. FOLLOW UP WITH [facility]Y [facility]IN[facility] OUTLINED ABOVE. FOLLOW UP WITH [facility] DR. ALMODOVAR IN 3-4 WEEKS. FOLLOW UP WITH [facility] DR. MENSAH IN 3 MONTHS FOR REPEAT SCOPE. PLEASE CALL HIS OFFICE FOR AN APPOINTMENT. Total Time Total Time Spent Total Time Spent (In Minutes): > 30 minutes
[2023-02-14] MEDS ORDERED: hydrALAZINE 10 MG TAB PO SCH (21:00)
== END 2023-02-14 16:07 | disposition home health service (06) | DRG 309 ==
LOC: ED 11:20 → 2E 15:14 → SUATTDRO 15:14 → 2E 17:38